=== PATIENT | female | born 1940 | race Caucasian/White ===

== ENCOUNTER 2016-11-10 00:49 | Inpatient (IN) ==
--- NOTE | 2016-11-08 13:51 | EKG Report ---
Test Performed on : 11/08/2016 1:48:07 PM Test Reason : PAT Blood Pressure : / mmHG Vent. Rate : 066 BPM Atrial Rate : 066 BPM P-R Int : 142 ms QRS Dur : 088 ms QT Int : 410 ms P-R-T Axes : -05 042 058 degrees QTc Int : 429 ms Normal sinus rhythm. Cannot rule out Anterior infarct , age undetermined Abnormal ECG No previous ECGs available Confirmed by Queenie ROE, Talon Lema ([id number]) on 11/08/2016 5:01:54 PM
[2016-11-08 14:21] LABS: HEMATOCRIT 36.8 % (37.0-47.0); HEMOGLOBIN 10.8 g/dL (12.0-16.0); MCH 22.3 PG (27-31); MCHC 29.3 g/dL (33-37); MCV 75.9 FL (81-99); MPV 9.1 FL (7.4-10.4); RBC 4.85 XMIL (4.2-5.4)
[2016-11-08 14:50] LABS: AGAP 13; BUN 14 mg/dL (8-22); CALCIUM 11.5 mg/dL (8.8-10.2); CHLORIDE 96 mmol/L (98-107); COSMO 275; POTASSIUM 5.1 mmol/L (3.5-5.1); SODIUM 138 mmol/L (136-145); TCO2 29 mmol/L (25-35)
[2016-11-08 14:52] LABS: INR 1.12; PROTIME 11.9 Seconds (9.2-11.7); PTT 33.1 Seconds (22.0-36.0)
[2016-11-10] MEDS ORDERED: KEFZOL 2 GM/D5W 2 GM/50 ML IVPB ONE (07:20)
[2016-11-10] MEDS ORDERED: LR 1,000 ML ONE ×3 (07:20→09:23)
[2016-11-10] MEDS ORDERED: DIPRIVAN 1% ONE (09:34)
[2016-11-10] MEDS ORDERED: FENTANYL ONE (09:35)
[2016-11-10] MEDS ORDERED: XYLOCAINE-MPF 2% ONE (09:35)
[2016-11-10] MEDS ORDERED: EPHEDRINE ONE (10:20)
[2016-11-10] MEDS ORDERED: STERILE WATER INJ. ONE (10:41)
[2016-11-10] MEDS ORDERED: NORCURON ONE ×2 (10:41→10:45)
[2016-11-10] MEDS ORDERED: QUELICIN (DOSE) ONE (10:41)
[2016-11-10] MEDS ORDERED: OFIRMEV 1000 MG/ISOTONIC SOLN 1,000 MG/100 ML BOTTLE ONE (11:35)
[2016-11-10] MEDS ORDERED: ZOFRAN ONE (11:43)
[2016-11-10] MEDS ORDERED: DECADRON ONE (11:43)
[2016-11-10] MEDS ORDERED: ROBINUL ONE (11:46)
[2016-11-10] MEDS ORDERED: NEOSTIGMINE ONE (11:48)
[2016-11-10 12:10] LABS: URINE MICRO REVIEW NEEDED? NO; URINE SOURCE CATH
[2016-11-10] MEDS ORDERED: NS 1,000 ML ONE (12:10)
[2016-11-10 12:15] LABS: BILIRUBIN URINE NEGATIVE (NEGATIVE); BLOOD URINE NEGATIVE (NEGATIVE); COLOR YELLOW; GLUCOSE URINE NEGATIVE (NEGATIVE); LEUKOCYTES URINE NEGATIVE (NEGATIVE); NITRITE URINE NEGATIVE (NEGATIVE); PROTEIN URINE NEGATIVE (NEGATIVE); SP GRAVITY URINE 1.007; TURBIDITY URINE CLEAR (CLEAR); UROBILINOGEN URINE NORMAL (NORMAL)
[2016-11-10 12:19] LABS: UR EPITHELIAL CELLS <10 /HPF (<10); URINE BACTERIA NEGATIVE /HPF; URINE RBC <10 /HPF (<10); URINE WBC <10 /HPF (<10)
[2016-11-10] MEDS: MORPHINE ONE ×2 (12:50→12:53)
[2016-11-10] MEDS ORDERED: SODIUM CHLORIDE 0.9% INJ PRN (13:37)
[2016-11-10] MEDS ORDERED: ZOFRAN IV PRN (13:37)
[2016-11-10] MEDS ORDERED: TYLENOL PO PRN (13:37)
[2016-11-10] MEDS ORDERED: MORPHINE IV PRN (13:37)
[2016-11-10] MEDS ORDERED: LABETALOL IV PRN (13:37)
[2016-11-10] MEDS ORDERED: PHENERGAN PO PRN (13:37)
[2016-11-10] MEDS ORDERED: DITROPAN PO PRN (13:37)
[2016-11-10] MEDS ORDERED: B & O 15A SUPP PR PRN (13:37)
[2016-11-10] MEDS ORDERED: PHENERGAN PR PRN (13:37)
[2016-11-10] MEDS ORDERED: PHENERGAN IV PRN (13:37)
[2016-11-10] MEDS ORDERED: BENADRYL LIQUID PO PRN (13:37)
[2016-11-10] MEDS ORDERED: BENADRYL IV PRN (13:37)
[2016-11-10] MEDS ORDERED: NS 1,000 ML IV SCH (14:00)
[2016-11-10] MEDS ORDERED: LASIX PO PRN (14:02)
[2016-11-10] MEDS ORDERED: NORCO-10 PO PRN (14:02)
[2016-11-10] MEDS: TRANDATE PO SCH (16:25)
[2016-11-10] MEDS: FERROUS SULFATE PO SCH (16:25)
[2016-11-10] MEDS: KEFZOL 2 GM/D5W 2 GM/50 ML IVPB IV SCH (19:04)
[2016-11-10] MEDS: DUONEB (A & A) INH SCH (19:08)
[2016-11-10] MEDS: ADVAIR 250/50 DISKUS INH SCH (19:14)
[2016-11-10] MEDS: COLACE PO SCH ×2 (19:49→22:53)
[2016-11-10] MEDS: PRAVACHOL PO SCH ×2 (19:49→22:53)
[2016-11-10] MEDS: NORCO-7.5 PO PRN (23:22)
[2016-11-11] MEDS: KEFZOL 2 GM/D5W 2 GM/50 ML IVPB IV SCH (02:41)
[2016-11-11] MEDS: NORCO-7.5 PO PRN (06:05)
[2016-11-11 06:13] LABS: MCH 22.6 PG (27-31); MCHC 29.4 g/dL (33-37); MCV 76.7 FL (81-99); RBC 4.43 XMIL (4.2-5.4)
[2016-11-11 06:29] LABS: CALCIUM 9.8 mg/dL (8.8-10.2)
[2016-11-11] MEDS: ADVAIR 250/50 DISKUS INH SCH (07:40)
[2016-11-11] MEDS: DUONEB (A & A) INH SCH (07:40)
--- NOTE | 2016-11-11 07:56 | PROGRESS NOTE ---
DATE: 11/11/2016 SUBJECTIVE: Ms. Oden reports a good night overnight. She denies severe pain. OBJECTIVE: Vital Signs: T 97.7 degrees, P 69, BP 152/54. Urine output was recorded at 2475 mL. General: No acute distress. Abdomen: Appropriately tender. Nondistended. Incisions are clean, dry, and intact in all sites. : Bladder is nontender to palpation. PERTINENT LABORATORY DATA: White cell count 11,000, hematocrit 34, creatinine is 1.1. ASSESSMENT: This is a 76-year-old female status post right robotic nephrectomy, who is doing well. She was educated on postoperative care and was cleared for discharge. PLAN: 1. Discharge home once voids and ambulates and tolerates breakfast. 2. I plan on seeing her in 1 week. 3. She will go home with prescription for Hawkins 10 (#30). cc: Last Barker MD
[2016-11-11] MEDS ORDERED: ALLEGRA PO SCH (09:00)
[2016-11-11] MEDS ORDERED: ALDACTONE PO SCH (09:00)
[2016-11-11] MEDS ORDERED: VITAMIN B-12 PO SCH (09:00)
[2016-11-11] MEDS: COLACE PO SCH (09:37)
[2016-11-11 09:39] VITALS: BP 158/48
[2016-11-11] MEDS: FERROUS SULFATE PO SCH (09:45)
[2016-11-11] MEDS: TRANDATE PO SCH (09:45)
[2016-11-13] MEDS ORDERED: DURAGESIC 12 MICROGM/HR PATCH TD SCH (09:00)
--- NOTE | 2016-11-15 17:38 | OPERATIVE NOTE ---
PROCEDURE DATE: 11/10/2016 SURGEON: Last Barker MD PREOPERATIVE DIAGNOSIS: 1. Right renal mass, flank pain, presumable metastatic disease. 2. Morbid obesity with body mass index over 40. PRIMARY PROCEDURES: Right robotic nephrectomy. INDICATIONS: 76-year-old female who presented with right hip pain and underwent imaging which eventually revealed a lytic lesion. She then had a CT of chest, abdomen and pelvis revealing a large right renal mass. She was counselled on debulking nephrectomy and had agreed to proceed. FINDINGS: Fairly large exophytic mass, adequate hemostasis at conclusion of the case. DESCRIPTION OF PROCEDURE: After obtaining informed consent, patient was brought to the operating room. Perioperative antibiotics and general endotracheal anesthesia were administered. She was placed in modified flank position with the right side up. She was prepped and draped sterile fashion. A 16-Citizen [place] Fontenot catheter was introduced and placed to gravity drainage. We then made a small stab incision in her umbilicus and introduced Veress needle connected to saline-filled syringe. We confirmed positive drop test followed by aspiration of syringe fluid without evidence of bowel contents or blood. We insufflated her pneumoperitoneum to 15 mmHg. We then marked out trocar sites suitable for nephrectomy having to shift the trocar sites laterally given her very large pannus. We then made incision with Bovie electrocautery and introduced 12 mm robotic camera trocar. The camera was introduced and peritoneal cavity was examined. She did not have significant adhesions with exception to summon of her ascending colon, she did have very large amount of intraabdominal fat again with BMI over 40. We then placed the rest of the trocars under direct vision. The robot was docked. I began by taking down the adhesions sharply allowing us to free the colon. I then made incision along the white line of Toldt and able to medialized the colon. Surprisingly Gerota fascia was incised and she had not a very large amount of perinephric fat. I was able to medialized the duodenum until inferior vena cava was seen. We dissected along the lateral edge of IVC until renal vein was seen. I dissected around the renal vein right its confluence to the IVC and placed a vessel loop around it. She had a 2nd renal vein just superior to it. We performed the same thing with the other renal vein. The artery was seen just posterior to the upper renal vein. I then dissected around the lower pole of the kidney was able to identify the ureter and placed 2 Hem-o-comfort clips and transected it. We then dissected posterior long psoas muscle until the kidney was retracted anteriorly. I then used the endovascular stapler with a 45 mm load to take hilum on block. The hemostasis appeared to be excellent. We then freed up the kidney superiorly sparing her adrenal gland. We then freed up the kidney laterally and posteriorly which allowed us to mobilize the specimen its entirety. Following that I decreased pneumoperitoneal pressure and there was very small oozing toward the area of the inferior adrenal edge. Surgicel hemostatic agent was placed and pneumoperitoneal pressure was decreased again without any evidence of bleeding. The pressure was down to 2 mmHg. We then undocked the robot, extended the infraumbilical assistant kitchen manager trocar, retrieved the specimen. We irrigated copiously the wound with normal saline. We then used #1 looped PDS to close the fascia in a running fashion. The wound was irrigated again. A 0 Vicryl suture was used in a running fashion to close the adipose tissue. We then performed 4-0 Monocryl closure of subcuticular sutures. 4-0 Monocryl suture was also used for the rest of the trocars. Dermabond skin adhesive was applied. Please note that during the surgery I did have to place a 5 mm liver retractor trocar by making small stab incision just lateral to the xiphoid process and introduced and under direct vision. This allowed us to assist with liver and gallbladder retraction. At the end of the case the retractor was removed and the liver and the gallbladder were visualized without any evidence of injury. She was then extubated and taken to PACU further recovery. ESTIMATED BLOOD LOSS: 100 mL. COMPLICATIONS: None. DISPOSITION: To PACU subsequently floor for observation with Fontenot catheter to gravity drainage. cc: MD ERICK Yang
== END 2016-11-11 09:55 | disposition home or self-care (01) ==
LOC: SURHOLD 00:49 → 4N 12:21
PROVIDERS: ADMIT Urology; ATTEND Urology

== ENCOUNTER 2019-03-05 19:13 | Inpatient (IN) ==
--- NOTE | 2019-03-05 19:50 | Diag Imaging Result Doc PS360 ---
EXAM: CHEST-1 VIEW 03/05/2019 HISTORY: ams TECHNIQUE: AP portable at 1939 COMMENT: There is cardiomegaly and increased pulmonary vascularity. This is worse than on the previous study of 09/12/2017. IMPRESSION: Cardiomegaly. Electronically signed by Liam Willson 03/05/2019 7:48 PM
--- NOTE | 2019-03-05 19:59 | EKG Report ---
Test Performed on : 03/05/2019 7:42:15 PM Test Reason : ams Blood Pressure : / mmHG Vent. Rate : 063 BPM Atrial Rate : 063 BPM P-R Int : 142 ms QRS Dur : 096 ms QT Int : 414 ms P-R-T Axes : -26 070 029 degrees QTc Int : 423 ms Normal sinus rhythm. Septal infarct , age undetermined Abnormal ECG When compared with ECG of 09-FEB-2019 15:35, (Unconfirmed) premature atrial complexes. are no longer present QRS duration has increased Unconfirmed Result
[2019-03-05] MEDS ORDERED: NS 1,000 ML IV PRN (20:18)
[2019-03-05 20:37] LABS: BASO# 0.03 X1000 (0.0-0.2); BASO% 0.4 % (0.0-0.8); EOS# 0.07 X1000 (0.0-0.7); HEMATOCRIT 44.6 % (37.0-47.0); HEMOGLOBIN 12.3 g/dL (12.0-16.0); LYMPH# 0.76 X1000 (1.2-3.4); LYMPH% 10.5 % (20.5-51.1); MCH 26.3 PG (27-31); MCHC 27.6 g/dL (33-37); MCV 95.3 FL (81-99); MONO# 0.37 X1000 (0.11-0.59); MONO% 5.1 % (1.7-9.3); MPV 10.6 FL (7.4-10.4); NEUT# 6.01 X1000 (1.4-6.5); PLT 249 X1000 (130-400); RBC 4.68 XMIL (4.2-5.4); RDW 16.3 % (11.5-14.5); WBC 7.24 X1000 (4.8-10.8)
[2019-03-05 20:39] LABS: ALLEN TEST YES; BE -4.3 mmoll (-3.0-3.0); BLOOD TYPE ARTERIAL; HCO3-(ACT) 21.5 mmoll (20.0-26.0); METHB 0.6 % (0.0-1.5); O2(CT) 17.1 mL/dL (15.0-23.0); O2HB 95.7 % (95.0-99.0); PO2(98.6) 106 mmHg (60-100); SAMPLE BLOOD; SAO2 98.8 % (95.0-100.0); THB 12.6 g/dL (11.5-17.4)
[2019-03-05 20:40] LABS: MODALITY CANNULA
[2019-03-05 20:41] LABS: PCO2(98.6) 114 mmHg (35-45); pH(98.6) 7.02 (7.35-7.45)
[2019-03-05] MEDS ORDERED: SODIUM BICARBONATE 8.4% IV ONE ×2 (20:41→21:19)
[2019-03-05] MEDS ORDERED: AMIDATE IV ONE (21:06)
[2019-03-05] MEDS ORDERED: QUELICIN IV ONE (21:06)
[2019-03-05 21:11] LABS: INR 0.99; PROTIME 13.2 Seconds (11.0-16.0); PTT 30.9 Seconds (22.3-41.8)
[2019-03-05 21:14] LABS: AGAP 7; ALB/GLOB RATIO 1.2; ALBUMIN 3.8 g/dL (3.5-5.0); ALKALINE PHOSPHATASE 91 U/L (32-104); BUN 36 mg/dL (8-22); CALCIUM 9.3 mg/dL (8.8-10.2); CHLORIDE 105 mmol/L (98-107); COSMO 287; CREATININE 1.3 mg/dL (0.5-0.9); ESTIMATED GFR 40; GLUCOSE 118 mg/dL (70-104); GOT 14 U/L (10-30); GPT 9 U/L (10-36); POTASSIUM 7.5 mmol/L (3.5-5.1); SODIUM 139 mmol/L (136-145); TCO2 27 mmol/L (25-35); TOTAL BILIRUBIN < 0.15 mg/dL (0.20-1.00)
[2019-03-05] MEDS ORDERED: HUMULIN R IV ONE (21:19)
[2019-03-05] MEDS ORDERED: DUONEB (A & A) INH ONE (21:19)
[2019-03-05] MEDS ORDERED: ZEMURON IV ONE (21:19)
[2019-03-05] MEDS ORDERED: KAYEXALATE PR ONE (21:19)
[2019-03-05] MEDS ORDERED: D50W SYRINGE IV ONE (21:19)
--- NOTE | 2019-03-05 21:22 | Diag Imaging Result Doc PS360 ---
EXAM: CT HEAD W/O CONTRAST 03/05/2019 HISTORY: altered mental status, stroke TECHNIQUE: This exam was performed using automated exposure control, adjustment of mA or kV according to patient size, and/or use of iterative reconstruction technique. COMMENT: There is no evidence of mass effect, bleed, or abnormal extra-axial fluid collection. Compared to 09/12/2017 there has been no significant change. There is opacification of the sphenoid sinuses bilaterally. This was also the case previously. IMPRESSION: Bilateral chronic sphenoid sinusitis. No evidence of acute intracranial disease. If clinically indicated advise further evaluation with MRI. Electronically signed by Liam Willson 03/05/2019 9:19 PM
[2019-03-05] MEDS: DIPRIVAN 1% 1,000 MG/100 ML BOTTLE IV SCH (21:46)
[2019-03-05] MEDS ORDERED: KAYEXALATE NG ONE (21:58)
--- NOTE | 2019-03-05 22:00 | Diag Imaging Result Doc PS360 ---
EXAM: CHEST-1 VIEW 03/05/2019 HISTORY: et tube placement TECHNIQUE: Erect AP portable at 2142 COMMENT: There is an endotracheal tube with its tip slightly below the thoracic inlet. There is an NG tube with its tip just below the gastroesophageal junction. There is apparent atelectasis in the left base which was not present on 03/05/2019 at 1939. IMPRESSION: Left lower lobe atelectasis. NG tube in the cardia of the stomach. Electronically signed by Liam Willson 03/05/2019 9:58 PM
[2019-03-05] MEDS ORDERED: KAYEXALATE ONE (22:05)
[2019-03-05] MEDS ORDERED: LEVAQUIN 500 MG/D5W 500 MG/100 ML IVPB IV ONE (22:38)
[2019-03-05] MEDS ORDERED: CALCIUM GLUCONATE 1 GM in NS 50 ML IV ONE (22:39)
--- NOTE | 2019-03-05 22:44 | PROVIDER DOCUMENTATION ---
This chart was entered by Chio Hargrove Scribe, acting as scribe for Monty Morales MD. HPI-General Adult - General Source: patient, family - History of Present Illness -Gen Adult Nature of Presenting Problems: pt is a 78 yr old female presenting from home via EMS with 1 day complaint of decreased responsiveness, family reports since waking this AM pt has becoming increasingly difficult to arouse, has had intermittent slurred speech and confusion, this evening family was unable to wake pt for supper. family admits pt is on 2lpm continuous home o2 and has had Spo2 sats in the 70%s today with o2 in place. family denies any recent fever, no vomiting , diarrhea or coughing. family reports hx of renal CA with mets. pt is slow to respond but denies any complaints when woken. Location of Pain/Injury: reports: none Quality of Pain: reports: none Onset/Duration: reports: this morning Timing: reports: changing over time, getting worse Context/Activities at Onset: reports: rest Modifying Factors: improves with: nothing Associated Symptoms: denies: cough, diarrhea, fever/chills, sinus congestion/drainage, vomiting Similar Symptoms Previously?: No Recently seen or treated by another doctor?: No <Monty Morales - Last Filed: 03/05/19 22:41> <Kelly Roberts - Last Filed: 03/06/19 08:08> - General Stated Complaint: "unresponsive" hx kidney CA Time Seen by Provider: 03/05/19 19:32 Allergies/Adverse Reactions: Patient Allergies Allergy/AdvReac Type Severity Reaction Status Date / Time No Known Allergies Allergy Verified 03/05/19 23:32 Home Medications: Home Medication List Medication Instructions Recorded Confirmed Last Taken Type Labetalol [Trandate] 100 mg PO TID 11/08/16 03/05/19 02/07/17 21:00 History Sertraline [Zoloft] 25 mg PO DAILY 08/01/17 03/05/19 Unknown History Review of Systems - Adult - REVIEW OF SYSTEMS - ADULT ROS:: limited per condition Constitutional: reports: pelon. denies: chills, fever Eyes: reports: no symptoms reported Ears, Nose, Mouth & Throat: reports: no symptoms reported Cardiovascular: reports: no symptoms reported Respiratory: denies: cough, wheezing Gastrointestinal: denies: diarrhea, vomiting Genitourinary: reports: no symptoms reported Musculoskeletal: denies: muscle aches, muscle weakness Integumentary: reports: no symptoms reported Neurological: reports: slurred speech, other (confusion, decreased re sponsivness). denies: syncope Psychiatric: reports: no symptoms reported Endocrine: reports: no symptoms reported Hematologic/Lymphatic: reports: no symptoms reported Allergic/Immunologic: reports: no symptoms reported All Other Systems: Reviewed and Negative <Monty Morales - Last Filed: 03/05/19 22:41> Past History - Adult - PAST MEDICAL HISTORY-ADULT Review of Records: reports: Old Records Reviewed, Nursing Assessment Review, Medications Reviewed, Social history reviewed & non-contributory. Major Childhood Illnesses: reports: denies history Cardiovascular: reports: blood clots, HTN, hyperlipidemia Respiratory: reports: COPD Gastrointestinal: reports: denies history Obstetrical/Gynecological: reports: denies history Genitourinary: reports: cancer (kidney with mets to the bone), kidney disease, other (renal mass) Musculoskeletal: reports: denies history Neurological: reports: denies history Psychiatric: reports: denies history Endocrine/Immune: reports: denies history Other Conditions: reports: cataract/glaucoma - PRIOR SURGERIES/PROCEDURES Surgical/Procedure History: reports: reviewed, not pertinent, other (cataract removal, nephrectomy) - IMMUNIZATION STATUS Childhood Immunizations: See Nurse Assessment Flu Vaccine: See Nurse Assessment - FAMILY HISTORY Family History: reviewed, not pertinent - SOCIAL HISTORY Smoking: quit greater than 1 year Substance Use: alcohol Alcohol Use Frequency: occasionally Living Situation: family <Monty Morales - Last Filed: 03/05/19 22:41> Physical Exam-General - CONSTITUTIONAL General Appearance: no apparent distress, obese, lethargic, slow to respond - EYES Eyes: PERRL/EOMI - HEAD, EARS, NOSE, MOUTH & THROAT HENMT: normocephalic/atraumatic, moist mucous membranes - NECK Neck: non-tender, supple - RESPIRATORY Respiratory: lungs clear, normal breath sounds - CARDIOVASCULAR Cardiovascular: normal peripheral pulses, regular rate, rhythm - GASTROINTESTINAL (ABDOMEN) Abdominal Exam: normal bowel sounds, non tender, soft - LYMPHATIC Lymphatic: no adenopathy - MUSCULOSKELETAL Extremity: non-tender. negative: pedal edema - SKIN Integumentary: normal color, normal turgor, warm/dry - NEUROLOGIC Neurologic: negative: motor weakness, sensory deficit - PSYCHIATRIC Psych/Mental Status: oriented x 3 <Monty Morales - Last Filed: 03/05/19 22:41> Progress - PLAN OF CARE/RESULTS Progress/Plan/Lab Results: Orders Category Date Time Status Nursing- Obtain EKG ONCE Care 03/05/19 19:32 Active cxr [CHEST-1 VIEW] [RAD] Stat Exams 03/05/19 19:32 Completed CBC WITH ELECTRONIC DIFF [HEME] Stat Lab 03/05/19 20:06 Ordered COMPREHENSIVE METABOLIC PANEL [CHEM] Stat Lab 03/05/19 20:06 Ordered TROPONIN T HIGH SENSITIVITY Stat Lab 03/05/19 20:06 Ordered URINALYSIS W/POSS RFLX CULT [URINALYSIS] Stat Lab 03/05/19 19:32 Uncollected EKG [EKG] Stat Ther 03/05/19 19:32 Draft Result Diagrams: 03/05/19 19:57 03/05/19 19:57 - XRAY 1 XRAY Study: Chest Impression: Abnormal ( Signed EXAM: CHEST-1 VIEW 03/05/2019 HISTORY: ams TECHNIQUE: AP portable at 1939 COMMENT: There is cardiomegaly and increased pulmonary vascularity. This is worse than on the previous study of 09/12/2017. IMPRESSION: Cardiomegaly. Electronically signed by Liam Willson 03/05/2019 7:48 PM 03/05/191947 Interpreting Physician: Liam Willson MD Dictated Date/Time: 03/05/191946 cc: Monty Morales MD;) Comparison with other Films: changes noted (09/12/17) - CT/MRI 1 CT Study: Head Impression: Abnormal ( Signed EXAM: CT HEAD W/O CONTRAST 03/05/2019 HISTORY: altered mental status, stroke TECHNIQUE: This exam was performed using automated exposure control, adjustment of mA or kV according to patient size, and/or use of iterative reconstruction technique. COMMENT: There is no evidence of mass effect, bleed, or abnormal extra-axial fluid collection. Compared to 09/12/2017 there has been no significant change. There is opacification of the sphenoid sinuses bilaterally. This was also the case previously. IMPRESSION: Bilateral chronic sphenoid sinusitis. No evidence of acute intracranial disease. If clinically indicated advise further evaluation with MRI. Electronically signed by Liam Willson 03/05/2019 9:19 PM 03/05/[id number] Interpreting Physician: Liam Willson MD Dictated Date/T lyndsey: 03/05/192117 cc: Monty Morales MD;) Comparison with other Films: no changes (09/12/17) - CONSULTS/PCP/HOSPITALIST Notification #1 *Consult/PCP/Hospitalist*: Dr Guzman Time Discussed: 22:44 Consult Disposition: Will see in ED, Admit <Monty Morales - Last Filed: 03/05/19 22:41> - PLAN OF CARE/RESULTS Progress/Plan/Lab Results: Vital Signs - 8 hr 03/05/19 19:30 Temperature 97.9 F Pulse Rate 59 L Respiratory Rate 17 Blood Pressure 172/68 O2 Sat by Pulse Oximetry 98 Laboratory Results - last 24 hr 03/05/19 03/05/19 03/05/19 19:57 19:57 19:57 WBC 7.24 RBC 4.68 Hgb 12.3 Hct 44.6 MCV 95.3 MCH 26.3 L MCHC 27.6 L RDW Std Deviation 16.3 H Plt Count 249 MPV 10.6 H Neut % (Auto) 83.0 H Lymph % (Auto) 10.5 L [place] % (Auto) 5.1 Eos % (Auto) 1.0 Baso % (Auto) 0.4 Neut # (Auto) 6.01 Lymph # (Auto) 0.76 L [place] # (Auto) 0.37 Eos # (Auto) 0.07 Baso # (Auto) 0.03 PT INR PTT (Actin FS) Specimen Type Sample Site pH pCO2 pO2 HCO3 Base Excess Oxyhemoglobin ABG O2 Sat (Calculated) ABG O2 Saturation ABG Carboxyhemoglobin ABG Methemoglobin Talon Test A-a O2 Difference Total Hemoglobin Lactate Liter Flow Blood Gas Modality FiO2 % Sodium 139 Potassium 7.5 H* Chloride 105 Carbon Dioxide 27 Anion Gap 7 BUN 36 H Creatinine 1.3 H Estimated GFR/1.73 m2 40 BUN/Creatinine Ratio 28 Glucose 118 H Calculated Osmolality 287 Calcium 9.3 Total Bilirubin < 0.15 L AST 14 ALT 9 L Alkaline Phosphatase 91 Ammonia Troponin T High Sens 48 H Total Protein 7.0 Albumin 3.8 Globulin 3.2 Albumin/Globulin Ratio 1.2 03/05/19 03/05/19 03/05/19 19:57 20:20 20:40 WBC RBC Hgb Hct MCV MCH MCHC RDW Std Deviation Plt Count MPV Neut % (Auto) Lymph % (Auto) [place] % (Auto) Eos % (Auto) Baso % (Auto) Neut # (Auto) Lymph # (Auto) [place] # (Auto) Eos # (Auto) Baso # (Auto) PT 13.2 INR 0.99 PTT (Actin FS) 30.9 Specimen Type ARTERIAL Sample Site R BRACHIAL pH 7.02 L* pCO2 114 H* pO2 106 H HCO3 21.5 Base Excess -4.3 L Oxyhemoglobin 95.7 ABG O2 Sat (Calculated) 17.1 ABG O2 Saturation 98.8 ABG Carboxyhemoglobin 2.60 H ABG Methemoglobin 0.6 Talon Test YES A-a O2 Difference -20.0 Total Hemoglobin 12.6 Lactate 0.30 L Liter Flow 3.0 Blood Gas Modality CANNULA FiO2 % 32.0 Sodium Potassium Chloride Carbon Dioxide Anion Gap BUN Creatinine Estimated GFR/1.73 m2 BUN/Creatinine Ratio Glucose Calculated Osmolality Calcium Total Bilirubin AST ALT Alkaline Phosphatase Ammonia 38 Troponin T High Sens Total Protein Albumin Globulin Albumin/Globulin Ratio Orders Category Date Time Status Cardiac Monitoring DIRECTED Care 03/05/19 20:18 Active Finger Stick Blood Sugar (ED) DIRECTED Care 03/05/19 20:18 Active Fontenot Cath Insertion ORDERED Care 03/05/19 20:32 Active Nursing- Obtain EKG ONCE Care 03/05/19 19:32 Active Oxygen Therapy- ED Nursing DIRECTED Care 03/05/19 20:18 Active Saline Loc NOW Care 03/05/19 20:[address] HEAD W/O CONTRAST [CT] Stat Exams 03/05/19 20:14 Completed cxr [CHEST-1 VIEW] [RAD] Stat Exams 03/05/19 19:32 Completed ABG [RESP] Routine Lab 03/05/19 20:20 Completed AMMONIA [CHEM] Stat Lab 03/05/19 20:40 Completed CBC WITH ELECTRONIC DIFF [HEME] Stat Lab 03/05/19 19:57 Completed COMPREHENSIVE METABOLIC PANEL [CHEM] Stat Lab 03/05/19 19:57 Completed PROTIME WITH INR [COAG] Stat Lab 03/05/19 19:57 Completed PTT [COAG] Stat Lab 03/05/19 19:57 Completed TROPONIN T HIGH SENSITIVITY Stat Lab 03/05/19 19:57 Completed URINALYSIS W/POSS RFLX CULT [URINALYSIS] Stat Lab 03/05/19 20:51 Ordered URINE DRUG SCREEN Stat Lab 03/05/19 20:51 Ordered 0.9% Sodium Chloride Inj [Ns] 1,000 ml Med 03/05/19 20:18 Active IV 125 mls/hr Albuterol 2.5MG/Ipratrop 0.5MG [Duoneb (A & A)] Med 03/05/19 21:19 Discontinued 3 ml INH NOW ONE Dextrose 50% Syringe [D50w Syringe] Med 03/05/19 21:19 Discontinued 50 ml IV NOW ONE Etomidate [Amidate] Med 03/05/19 21:06 Discontinued 20 mg IV NOW ONE Insulin Human Regular [Humulin R] Med 03/05/19 21:19 Discontinued 10 unit IV NOW ONE Rocuronium [place] [Zemuron] Med 03/05/19 21:19 Discontinued 100 mg IV NOW ONE Sodium Bicarbonate 8.4% Med 03/05/19 20:41 Discontinued 50 meq IV NOW ONE Sodium Bicarbonate 8.4% Med 03/05/19 21:19 Discontinued 50 meq IV NOW ONE Sodium Polystyrene [Kayexalate] Med 03/05/19 21:19 Discontinued 30 gm WV NOW ONE Succinylcholine [Quelicin] Med 03/05/19 21:06 Discontinued 100 mg IV NOW ONE Aerosol Treatments Routine Oth 03/05/19 21:19 Active Aerosol Treatments Stat Oth 03/05/19 21:19 Active BIPAP Stat Oth 03/05/19 20:42 Active EKG [EKG] Stat Ther 03/05/19 19:32 Draft Result Diagrams: 03/06/19 04:55 03/06/19 04:55 <Kelly Roberts - Last Filed: 03/06/19 08:08> Procedures - INTUBATION Time of Intubation: 21:25 Mallampati Class: 2 Intubation Method: orotracheal Equipment: ETT, Glidescope Tube Size (cm): 7.5 Pretreated with 100% Oxygen?: Yes Breath Sounds after Intubation: equal ETT Primary Tube Confirmation: Capnometry CO2 Change, Direct Visualization, Chest Rise and Fall, Tube placement verified on XRAY Intubation Complications: no complications Vent Settings: See Respiratory Therapy Notes <Kelly Roberts - Last Filed: 03/06/19 08:08> Departure - Departure Date of Disposition Decision: 03/05/19 Time of Disposition Decision: 22:41 Certified Medical Emergency: Emergent - Critical Care Note This patient required my direct & personal management of CC.: Yes Total Time (mins): 60 Critical Care Statement: This patient required my direct personal management to treat or rule out processes, the absence of which, could potentiallly result in sudden, clinically significant life or limb threatening deterioration. <Monty Morales - Last Filed: 03/05/19 22:41> <Kelly Roberts - Last Filed: 03/06/19 08:08> - Departure DIAGNOSIS: AMS (altered mental status), Hyperkalemia, Hypoxia, COPD exacerbation, Renal insufficiency, Respiratory distress Disposition: ADMITTED INPATIENT 09 Condition: Fair Attestation - Physician/ JOSE Attestation Patient care was provided by Advanced Practice Provider:: No The physician spent face to face time with patient:: Yes Advanced Practice Provider documentation review:: Supervising physician onsite and consulted in the evaluation and care of this patient. The physician did have a face to face encounter with the patient. <Monty Morales - Last Filed: 03/05/19 22:41> This chart was documented by the indicated scribe, (Chio Hargrove Scribe) and accurately reflects the services I performed and decisions made by me, Monty Morales MD, as attested by the provider's signature.
[2019-03-05 22:54] LABS: ALLEN TEST YES; BE 1.4 mmoll (-3.0-3.0); BLOOD TYPE ARTERIAL; O2(CT) 17.3 mL/dL (15.0-23.0); PO2(98.6) 146 mmHg (60-100); SAMPLE BLOOD; SAO2 98.6 % (95.0-100.0); SRATE 20 BPM; THB 12.6 g/dL (11.5-17.4); TVOL 500 mL; pH(98.6) 7.27 (7.35-7.45)
[2019-03-05 22:56] LABS: MODALITY VENTILATOR; PCO2(98.6) 65 mmHg (35-45)
[2019-03-05 22:58] LABS: URINE SOURCE CATH
[2019-03-05 23:05] LABS: BILIRUBIN URINE NEGATIVE (NEGATIVE); BLOOD URINE MODERATE (NEGATIVE); COLOR YELLOW; GLUCOSE URINE 70 mg/dL (NEGATIVE); KETONE URINE NEGATIVE (NEGATIVE); LEUKOCYTES URINE NEGATIVE (NEGATIVE); NITRITE URINE NEGATIVE (NEGATIVE); PH URINE 5.5; PROTEIN URINE 100 mg/dL (NEGATIVE); SP GRAVITY URINE 1.026; TURBIDITY URINE HAZY (CLEAR); UROBILINOGEN URINE 2 mg/dL (NORMAL)
[2019-03-05 23:06] LABS: UR EPITHELIAL CELLS <10 /HPF (<10); URINE BACTERIA NEGATIVE /HPF; URINE WBC <10 /HPF (<10)
[2019-03-05 23:20] LABS: URINE CASTS GRANULAR PRESENT; URINE CRYSTALS NONE SEEN; URINE SMALL ROUND CELLS NONE SEEN; URINE YEAST NONE SEEN
[2019-03-05 23:30] LABS: UR BARBITUATES QUAL NONE DETECTED (NONE DETECT); UR BENZODIAZEPIN QUAL NONE DETECTED (NONE DETECT); UR CANNABINOIDS QUAL NONE DETECTED (NONE DETECT); UR COCAINE QUAL NONE DETECTED (NONE DETECT); UR METHADONE QUAL NONE DETECTED (NONE DETECT); UR OPIATES QUAL NONE DETECTED (NONE DETECT); UR OXYCODONE QUAL NONE DETECTED (NONE DETECT); UR PCP QUAL NONE DETECTED (NONE DETECT)
[2019-03-05 23:45] LABS: UR AMPHETAMINES QUAL NONE DETECTED (NONE DETECT)
[2019-03-05] MEDS ORDERED: ATIVAN IV PRN (23:46)
[2019-03-05] MEDS ORDERED: TYLENOL PO PRN (23:46)
[2019-03-05] MEDS ORDERED: MORPHINE IV PRN (23:46)
[2019-03-05] MEDS ORDERED: ZOFRAN IV PRN (23:46)
[2019-03-05] MEDS ORDERED: DUONEB (A & A) INH PRN (23:46)
[2019-03-05] MEDS: DUONEB (A & A) INH SCH (23:50)
[2019-03-06] MEDS: NS 1,000 ML IV SCH ×7 (00:26→23:10)
[2019-03-06] MEDS: PEPCID IV SCH ×3 (00:26→23:10)
[2019-03-06] MEDS ORDERED: ALBUTEROL 0.5% INH CONC FOR HYPERKALEMIA INH ONE (01:09)
[2019-03-06] MEDS ORDERED: LASIX IV ONE (01:11)
[2019-03-06] MEDS ORDERED: KAYEXALATE PO ONE (01:12)
[2019-03-06] MEDS: DIPRIVAN 1% 1,000 MG/100 ML BOTTLE IV SCH ×8 (01:38→23:48)
[2019-03-06] MEDS: DUONEB (A & A) INH SCH ×6 (03:49→23:42)
[2019-03-06 04:45] LABS: ALLEN TEST YES; BE 1.6 mmoll (-3.0-3.0); BLOOD TYPE ARTERIAL; HCO3-(ACT) 26.1 mmoll (20.0-26.0); METHB 1.1 % (0.0-1.5); O2(CT) 19.9 mL/dL (15.0-23.0); O2HB 95.7 % (95.0-99.0); PCO2(98.6) 48 mmHg (35-45); PO2(98.6) 125 mmHg (60-100); SAMPLE BLOOD; SAO2 97.9 % (95.0-100.0); SRATE 14 BPM; THB 14.7 g/dL (11.5-17.4); TVOL 500 mL; pH(98.6) 7.37 (7.35-7.45)
[2019-03-06 04:46] LABS: MODALITY VENTILATOR
--- NOTE | 2019-03-06 05:34 | HISTORY AND PHYSICAL ---
PRIMARY CARE PROVIDER: Dr. Chidi Roman. ONCOLOGIST: Dr. Evelia Arora. CHIEF COMPLAINT: Per family at bedside altered mental status, unresponsiveness. HISTORY OF PRESENT ILLNESS: Ms. 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 She had been undergoing chemotherapy with oral medication with Dr. Evelia Arora; however, she has been off her chemotherapy for 6 months secondary to severe weight loss and being sick. She has just been on a shot for her bones once a month, COPD on p.r.n. home O2. Secondary to her hip pain she is essentially bedbound, history of bilateral PEs, hypertension. Family reports over the last few months she has been having issues with hyperkalemia. Her primary care physician has taken her off all her medications except for labetalol and Zoloft, and had an appointment set up with Dr. Ríos this week. However, even with taking her off her medications that could cause hyperkalemia she was still having issues. She is currently living with her sister, her sister reports this morning they had the Tuesday morning blahs, so they slept in. They got up and ate lunch and then she continued to sleep until about 2 p.m. She noticed she was more lethargic than normal, and she was extremely hard to arouse. She would only speak his in one-word sentences, and that her speech was somewhat slurred. She called her daughter over to assist her, they called EMS after they could not wake her for supper. O2 saturations at that time were 70% even on her home O2. Initially upon arrival to the ED she was slow to respond, but when she was awakened she did not have any complaints. However, after they checked her ABGs she was found to be hypercarbic with a metabolic acidosis, and was intubated and found to be hypokalemic for which she received treatment for. She is currently intubated and sedated on propofol. Family denies any recent sick contacts, any fever, chills, nausea, vomiting or diarrhea. She will be placed in the ICU to continue with further treatment and management. PAST MEDICAL HISTORY: 1. Renal cell carcinoma status post right nephrectomy with metastases to the right hip, followed by Dr. Evelia Arora. She was taken off her chemotherapy oral medications 6 months ago. 2. COPD on p.r.n. O2. 3. History of bilateral pulmonary embolus. 4. Hypertension. PAST SURGICAL HISTORY: Right nephrectomy, and a knee arthroscopy. SOCIAL HISTORY: She lives with her sister. She quit smoking more than 20 years ago. She is not , no children. She is retired from the government. Her niece and sister are both at bedside. HOME MEDICATIONS: Per sister labetalol and Zoloft, p.r.n. home O2 and breathing treatments. Her medications are currently being reconciled. REVIEW OF SYSTEMS: Hard to obtain secondary to the patient being sedated on propofol and intubated. FAMILY HISTORY: Reviewed and noncontributory. ALLERGIES: No known drug allergies. PHYSICAL EXAMINATION: VITAL SIGNS: Temperature is 97.9 degrees, heart rate 59, respirations 17, blood pressure was 172/68, O2 saturation is 98% on room air, currently 100% on mechanical ventilation. GENERAL: Ms. Oden is a 78-year-old female who is lying on the stretcher, intubated and sedated, in no acute distress. HEENT: Atraumatic, normocephalic. PERRL. NECK: Supple. Trachea midline. CARDIOVASCULAR: S1, S2 appreciated. No murmurs, gallops or rubs noted. RESPIRATORY: Lung sounds scattered rhonchi throughout all lung bowles. No rales, rhonchi or wheezes. GI: Appears to be soft, nontender and nondistended. Positive bowel sounds in 4 quadrants. LOWER EXTREMITIES: Generalized edema. Bilateral pedal pulses are bounding. SKIN: Appears to be warm, dry and intact. DIAGNOSTIC DATA: Head CT, bilateral chronic ethmoid sinusitis, no evidence of acute intracranial disease is clinically indicated. Advised further evaluation with MRI. Initial chest x-ray, cardiomegaly and increased pulmonary vascularity, worse than on previous study on 09/12/2017. Repeat chest x-ray showed an ET tube with its tip slightly below the thoracic inlet, and an NG tube with the tip just below the gastric esophageal juncture, and atelectasis in the left base that was not present on 03/05/2019. LABORATORY DATA: White count 7, hemoglobin and hematocrit 12 and 44, platelet count is 249,000. Initial ABG, pH was 7.02, pCO2 of 114, O2 of 106, bicarbonate 21, base excess - 4.3, O2 saturation was 98. Lactate was 0.30. On nasal cannula repeat ABG was 7.27, pCO2 of 65, O2 of 146, base excess of 1.4, O2 saturation of 98 on mechanical ventilation. Chemistry: Sodium 139, potassium 7.5, BUN 36, creatinine 1.3 blood glucose is 118. Initial troponin 48, and 2nd troponin was 45. EKG showed a normal sinus rhythm with a septal infarct age indeterminate at 63 beats per minute. ASSESSMENT AND PLAN: 1. Acute hypercarbic respiratory failure with a metabolic acidosis. The patient was intubated by the ED physician. There is no mechanical ventilation. Has been given bicarbonate with improvement in her ABGs. We will consult Pulmonology and continue on propofol drip overnight with Ativan for breakthrough agitation and morphine for any pain. Recheck an ABG and chest x- ray in the a.m. 2. Metabolic encephalopathy secondary to hypercarbia. There is no signs of infection. She does not have a white count. She is afebrile. Chest x-ray does not show any pneumonia. Urinalysis does not show any UTI. A head CT does not show anything acute; however, it does recommend further evaluation with an MRI. We will do so in the a.m. if the patient is appropriate to travel. 3. Hyperkalemia. The patient has had hyperkalemia treatment in the ER with Kayexalate, insulin, D 50, calcium, and bicarbonate, currently awaiting her potassium recheck. We will monitor her closely in the ICU. Repeat EKG in the a.m. The patient has been having issues with hyperkalemia, she was taken off her JESSICA and most of her medications by her PCP, but continued to have issues with her potassium. She had an appointment with Dr. Ríos this week, we will consult Dr. Bledsoe and appreciate any recommendations. She is currently on labetalol and Zoloft only. 4. COPD, probable mild exacerbation. She is not currently wheezing, but we will continue with bronchodilators and aggressive pulmonary toilet. 5. Hypertension. We will continue labetalol when appropriate, her heart rate has been in the 50s. 6. Renal cell carcinoma status post right nephrectomy with metastases to the right hip. She is followed by Dr. Evelia Arora; however, she was taken off her chemotherapy 6 months ago secondary to severe weight loss, and only gets follow up scans. 7. Acute kidney injury. We will continue with aggressive IV hydration. Again we have consulted Dr. Bledsoe. 8. Further recommendation to follow physician evaluation, laboratory and diagnostic data. Dictated by MARCELINA Fuchs for Zane Guzman MD I have performed a face to face diagnostic evaluation. Labs/ Xrays- reviewed. Exam- Chest rhonchi, CV- regular. A/P- Respiratory failure, hyperkalemia- Admit , Pulmonary consult for vent management. IV abx, monitor potassium, Kayexalate. Dr. Guzman cc: MD Chidi Yang MD Reginald D. Gladish, MD Lloyd James, MD Nidhi Jindal, MD [facility]ENTERJuan
[2019-03-06 06:17] LABS: BASO# 0.01 X1000 (0.0-0.2); BASO% 0.1 % (0.0-0.8); EOS# 0.03 X1000 (0.0-0.7); EOS% 0.4 % (0.0-10.0); HEMATOCRIT 39.4 % (37.0-47.0); HEMOGLOBIN 11.1 g/dL (12.0-16.0); IMM GRAN# 0.02 X1000 (0.0-0.04); IMM GRAN% 0.3 % (0.0-0.5); LYMPH# 0.68 X1000 (1.2-3.4); MCH 26.1 PG (27-31); MCHC 28.2 g/dL (33-37); MCV 92.7 FL (81-99); MONO# 0.67 X1000 (0.11-0.59); MONO% 8.9 % (1.7-9.3); MPV 11.3 FL (7.4-10.4); NEUT# 6.16 X1000 (1.4-6.5); NEUT% 81.3 % (42.2-75.2); PLT 231 X1000 (130-400); RBC 4.25 XMIL (4.2-5.4); RDW 15.8 % (11.5-14.5); WBC 7.57 X1000 (4.8-10.8)
[2019-03-06 06:31] LABS: ALB/GLOB RATIO 0.9; CALCIUM 9.2 mg/dL (8.8-10.2); CREATININE 1.3 mg/dL (0.5-0.9); POTASSIUM 4.9 mmol/L (3.5-5.1); TOTAL BILIRUBIN 0.28 mg/dL (0.20-1.00); TOTAL PROTEIN 6.4 g/dL (6.3-8.3)
--- NOTE | 2019-03-06 07:33 | Diag Imaging Result Doc PS360 ---
CHEST-PORTABLE - 03/06/2019 INDICATION: short of breath COMPARISON: 03/05/2019 FINDINGS: Support tubes are stable and in good position. There is worsening atelectasis or infiltrate at the left lower lobe with loss of the left hemidiaphragm. Stable cardiomegaly and moderate pulmonary vascular congestion. No definite pulmonary edema. IMPRESSION: Atelectasis or infiltrate at the left lower lobe, worse from prior. Electronically signed by Basilio Frias 03/06/2019 7:30 AM
--- NOTE | 2019-03-06 07:42 | EKG Report ---
Test Performed on : 03/06/2019 06:41:33 AM Test Reason : hyperkalemia Blood Pressure : / mmHG Vent. Rate : 071 BPM Atrial Rate : 071 BPM P-R Int : 128 ms QRS Dur : 078 ms QT Int : 436 ms P-R-T Axes : -11 019 030 degrees QTc Int : 473 ms Normal sinus rhythm. Minimal voltage criteria for LVH, may be normal variant Borderline ECG When compared with ECG of 05-MAR-2019 19:42, (Unconfirmed) Criteria for Septal infarct are no longer present Confirmed by Aman ROE, Robi Stubbs ([id number]) on 03/08/2019 7:28:23 AM
--- NOTE | 2019-03-06 10:44 | PROVIDER PROGRESS NOTE ---
Progress Note Patient has been seen and examined. A full dictation to follow.
[2019-03-06] MEDS: SODIUM CHLORIDE 0.9% INJ SCH (11:25)
--- NOTE | 2019-03-06 13:30 | PROVIDER PROGRESS NOTE ---
Progress Note Chief complaint: intubated and sedated HPI: Ms. Oden is an 78-year-old white female with a past medical history of renal cell carcinoma with the right nephrectomy and metastasis to the right hip. She was referred to Dr. Ríos for hyperkalemia and was due for her initial visit on 03/08/2019. She has been undergoing chemotherapy with oral medication with Dr. Evelia Arora. She has not been receiving treatment for the last six months secondary to severe weight loss and malaise. According to documentation she has had a problem with hyperkalemia over the last few months which resulted in her primary care provider, Dr. Chidi Pfeiffer, discontinuing some of her daily medications. Yesterday her sister noticed that she was more lethargic than normal and had slurred speech. EMS was called and found her O2 saturation to be at 70% even with home oxygen in place. Subsequently she was intubated in the emergency department based on presentation and abnormal ABGs. Family denies any chest pain, fever, chills, nausea, vomiting, diarrhea, cough, shortness of breath, blood in urine or stool, or contact with any infectious Family. She was treated with Kayexalate, insulin, D50, and calcium in the emergency for her hyperkalemia. Past medical history: renal cell carcinoma with Mets to the right hip, COPD requiring home oxygen, bilateral pulmonary embolism, and hypertension. Past surgical history: right nephrectomy and a knee arthroscopy. Family history: noncontributory Social history: she lives with her sister. She denies any current tobacco, alcohol, or illicit drug use. She is a former smoker. Allergies: no known allergies Home medications: labetalol and sertraline Review of systems: Limited due to patient being sedated. All pertinent positives listed above in the above HPI according to previous documentation. Physical exam: temperature 98.7, pulse 66, respirations 16, blood pressure 97/45, 02 sat 95% on 35% FiO2. Mechanical ventilation General: Elderly white female in no acute distress who is intubated and sedated. HEENT: normocephalic, atraumatic, conjunctiva pink, pupils equal and reactive. Trachea midline. Skin: Pale, warm, and dry. Neck: supple, 6cm JVD Cardiovascular: S1s2, regular rate and rhythm. No gallop or murmur. Respiratory: coarse lung sounds anteriorly. Abdomen: soft, obese, nontender, nondistended. Bowel sounds hypoactive. :non inspected, acevedo in place Extremities: minimal edema. Neurological:sedated, unable to assess orientation due to ET tube. Labs: WBC 7.57, hemoglobin 11.1, hematocrit 39.4, platelet count to 131, sodium 142, potassium 5.3, chloride 104, carbon dioxide 23, BUN 36, creatinine 1.3. Intake 1407, output 730. Imaging: chest x-ray impression atelectasis or infiltrate at the left lower lobe. Head CT without contrast impression bilateral chronic sphenoid sinusitis. No evidence of acute intracranial disease. Assessment and plan: Hyperkalemia. Source is not obvious. Improving. 5.3 today. She continues to have bowel movements with Kayexalate. Observe Worsening renal insufficiency. Her Creatinine was 0.9 in February and is now 1.3. Observe. Blood pressure. Stable. Anemia. Stable. Acid base balance. Stable. Medication review.
--- NOTE | 2019-03-06 13:31 | PROGRESS NOTE ---
DATE: 03/06/2019 SUBJECTIVE: This morning, Ms. dOen continues to be intubated and sedated on propofol. The sister and the niece were both at the bedside at the time of the encounter. OBJECTIVE: Vital Signs: Blood pressure is 132/55, pulse of 61, respirations 14, temperature is 98.6 degrees, the patient is saturating 96% on ventilator. General: Ms. Oden is a 78-year-old, elderly, female. She is in bed. No distress. She is currently intubated and sedated. HEENT: Mucosa is pink and moist. Anicteric. Acyanotic. Neck: Supple. Chest: Good air entry bilateral. There are no crepitations. Cardiovascular: Regular rate and rhythm. GI: Abdomen is soft, distended. Bowel sounds present. Extremities: No pedal edema. COOK SOUP: The patient is sedated on propofol, but will withdraw from painful stimulation. IMAGING AND LABORATORY DATA: Laboratory data has been reviewed. CBC is, for the most part, unremarkable. Chemistry shows creatinine of 1.3, potassium is down to 4.9. ProBNP is elevated at 8900. A chest x-ray did show atelectasis or infiltrate in the left lower lobe, worse from prior. ASSESSMENT: 1. Altered mental status, most likely due to CO2 narcosis. 2. Acute hypoxemic and hypercarbic respiratory failure. The patient is currently intubated. 3. Hyperkalemia, improved. Etiology is not quite apparent. The patient has been evaluated by Nephrology. We think there is a combination of possibly medication or nutritional causes, and possibly tumor lysis from her tumor. We will check the uric acid as well as phosphorus to get an idea if it is intracellular spilling. 4. History of chronic obstructive pulmonary disease, in exacerbation. 5. Hypertension. 6. History of renal cell carcinoma, status post right nephrectomy. 7. Acute kidney injury. 8. 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 9. Bedbound with poor performance status. The patient depends on her sister, who is her caregiver, for all her activities of daily living. cc: Naga Iverson MD
[2019-03-06 15:45] LABS: URINE SOURCE CATH
[2019-03-06 15:59] LABS: BILIRUBIN URINE NEGATIVE (NEGATIVE); BLOOD URINE NEGATIVE (NEGATIVE); COLOR YELLOW; GLUCOSE URINE NEGATIVE (NEGATIVE); KETONE URINE NEGATIVE (NEGATIVE); LEUKOCYTES URINE SMALL (NEGATIVE); NITRITE URINE NEGATIVE (NEGATIVE); PROTEIN URINE TRACE mg/dL (NEGATIVE); SP GRAVITY URINE 1.021; TURBIDITY URINE CLEAR (CLEAR); UROBILINOGEN URINE NORMAL (NORMAL)
[2019-03-06 16:01] LABS: UR EPITHELIAL CELLS <10 /HPF (<10); URINE BACTERIA NEGATIVE /HPF; URINE RBC 20-40 /HPF (<10); URINE WBC <10 /HPF (<10)
[2019-03-06 16:02] LABS: UR CREAT RANDOM 89.9 mg/dL (11-20); UR PROT RANDOM 21.7 mg/dL
--- NOTE | 2019-03-06 18:20 | Diag Imaging Result Doc PS360 ---
EXAM: US RENAL 2 (RETROPER) COMPLETE INDICATION: decreased renal function TECHNIQUE: COMPARISON: None. FINDINGS: There has been a prior right nephrectomy. No discrete masses identified in the right nephrectomy bed. There is a 1.5 cm simple cortical cyst associated with the left kidney. The left kidney is unremarkable, otherwise. No discrete left renal mass or hydronephrosis is identified. The left kidney measures 12.5 cm in the greatest longitudinal axis with a cortex of 1 cm in thickness. There is a Fontenot catheter in the urinary bladder and the bladder is decompressed. IMPRESSION: 1.Prior right nephrectomy. 2.Small simple cyst associated with the left kidney. Unremarkable left kidney, otherwise. Electronically signed by Nestor Rogers 03/06/2019 6:18 PM
--- NOTE | 2019-03-06 20:53 | CONSULTATION ---
DATE OF CONSULTATION: 03/06/2019 REQUESTING PROVIDER: MARCELINA Fuchs. REASON FOR CONSULTATION: Respiratory failure. HISTORY OF PRESENT ILLNESS: This is a 78-year-old female with a medical history of COPD, bilateral pulmonary emboli, renal cell carcinoma with bone metastasis to the right hip, hypertension, and hyperlipidemia. She presented to the ER via EMS last night with unresponsiveness and desaturation on continuous home oxygen at 2 L. Initial workup in the ER revealed hypocapnic respiratory failure with metabolic acidosis, metabolic encephalopathy, hypokalemia, COPD with mild exacerbation and acute kidney injury. The patient was eventually intubated in the ER secondary to hypercapnia with pCO2 up to 114. The patient currently is still intubated and sedated with a propofol drip at 60 mcg/kg per minute. There is no acute distress noted. She has a Fontenot on with urine in the drainage bag which is luis and clear. There is no family at the bedside. All the information is obtained from the e-chart. PAST MEDICAL AND SURGICAL HISTORY: 1. COPD on home oxygen as needed. 2. History of bilateral pulmonary emboli. 3. Renal cell carcinoma with bone metastasis to the right hip, status post right nephrectomy, palliative treatment to right hip lytic lesion and chemotherapy. Chemotherapy was discontinued 6 months ago secondary to severe weight loss and being sick. Followed up by Dr. Arora. 4. Hypertension. 5. Hyperlipidemia. 6. Cataracts status post cataract surgery. 7. Status post left ankle fracture repair. 8. Status post knee arthroscopy. SOCIAL HISTORY: Per H and P, the patient lives with her sister. She is never and has no children. She does have friends and family who help take care of her. She is a former smoker with a [id number] smoking history, and quit in 1998. She drinks alcohol socially. She has no history of illicit drug use. FAMILY HISTORY: Positive for dementia, DVT, uterine cancer and colon cancer. ALLERGIES: No known drug allergies. REVIEW OF SYSTEMS: Unable to be obtained. PHYSICAL EXAMINATION: Vital Signs: Temperature of 98.6, blood pressure 107/48, pulse 70, respiratory rate 14, oxygen saturation 95% on AC mechanical ventilator with spontaneous rate 14, FiO2 40%, PEEP 5, and tidal volume 500. General: Intubated and sedated, lying in bed. There is no acute distress noted. HEENT: Atraumatic and normocephalic. Trachea midline. ET tube in place. Mucosa pink and moist. Respiratory: Mechanically ventilated. Symmetrical excursion. Clear to auscultation bilaterally. Cardiovascular: Regular rate and rhythm with S1 and S-2 appreciates. Gastrointestinal: Soft, mildly distended. Normoactive bowel sounds in all 4 quadrants. Extremities: No pedal edema. No cyanosis. No clubbing. Dorsalis pedis 2+ bilaterally. Neurologic: Extremity withdrawal noted with painful stimuli. LABORATORY DATA: White blood cells 7.57, hemoglobin 11.1, hematocrit 39.4, platelets 231, sodium 140, potassium 5.3, chloride 104, carbon dioxide 23, BUN 36, creatinine 1.3, glucose 91. ProBNP 8902. ABG: pH of 7.37 pCO2 of 48, pO2 of 125, HC03 of 26.1, base excess of 1.6, oxyhemoglobin 95.7 on mechanical ventilator with spontaneous rate 14, FiO2 of 35%, tidal volume 500 and PEEP 5. IMAGING DATA: Chest x-ray this morning showed atelectasis or infiltrate at the left lower lobe, worse from prior. ASSESSMENT: This is a 78-year-old female with a medical history of COPD, bilateral 2 pulmonary emboli, renal cell carcinoma with bone metastases to the right hip, hypertension, and hyperlipidemia. She has been admitted since yesterday with altered mental status, acute hypoxic hypercapnic respiratory failure, hypokalemia, COPD exacerbation and acute kidney injury. 1. Acute hypercapnic and hypoxemic respiratory failure. Hypercapnia has been significantly improved since yesterday after intubation. Her pCO2 this morning was 48. 2. Altered mental status, likely secondary to hyper hypercapnia with initial pCO2 of 114. 3. Left lower lobe atelectasis versus infiltrate. 4. Chronic obstructive pulmonary disease with mild exacerbation. 5. Hypokalemia. 6. Acute kidney injury. 7. 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 PLAN: 1. we checked and titrated AC mechanical ventilator to patient needs per clinical protocols, and we will start weaning trials when appropriate. 2. Continue antibiotic (Levaquin), bronchodilators. 3. we titrated sedation per patient needs and clinical protocols 4. Follow up with arterial blood gas, complete blood count, basic metabolic panel, sputum culture, blood culture, and chest x-ray. 5. Further recommendations pending hospital course. Thank you for the courtesy of this consult. I spent 40 minutes in this process. cc: lCive Moreira MD MTDD
[2019-03-06] MEDS: LEVAQUIN 250 MG in NS 50 ML IV SCH (22:15)
[2019-03-07] MEDS: DIPRIVAN 1% 1,000 MG/100 ML BOTTLE IV SCH ×3 (02:02→09:09)
[2019-03-07] MEDS: DUONEB (A & A) INH SCH ×6 (03:52→23:48)
[2019-03-07] MEDS: NS 1,000 ML IV SCH ×3 (04:47→15:14)
[2019-03-07 04:52] LABS: ALLEN TEST YES; BE 1.3 mmoll (-3.0-3.0); BLOOD TYPE ARTERIAL; PCO2(98.6) 40 mmHg (35-45); PO2(98.6) 197 mmHg (60-100); SAMPLE BLOOD; SRATE 14 BPM; TVOL 500 mL; pH(98.6) 7.42 (7.35-7.45)
[2019-03-07 05:02] LABS: MODALITY VENTILATOR
[2019-03-07 06:32] LABS: BASO# 0.02 X1000 (0.0-0.2); BASO% 0.3 % (0.0-0.8); EOS# 0.21 X1000 (0.0-0.7); EOS% 3.3 % (0.0-10.0); HEMATOCRIT 35.8 % (37.0-47.0); HEMOGLOBIN 10.3 g/dL (12.0-16.0); IMM GRAN# 0.02 X1000 (0.0-0.04); IMM GRAN% 0.3 % (0.0-0.5); LYMPH# 0.84 X1000 (1.2-3.4); LYMPH% 13.1 % (20.5-51.1); MCH 25.6 PG (27-31); MCHC 28.8 g/dL (33-37); MCV 88.8 FL (81-99); MONO% 9.3 % (1.7-9.3); MPV 10.9 FL (7.4-10.4); NEUT# 4.74 X1000 (1.4-6.5); NEUT% 73.7 % (42.2-75.2); PLT 197 X1000 (130-400); RBC 4.03 XMIL (4.2-5.4); RDW 15.8 % (11.5-14.5); WBC 6.43 X1000 (4.8-10.8)
[2019-03-07 06:38] LABS: ALBUMIN 2.8 g/dL (3.5-5.0); CALCIUM 7.4 mg/dL (8.8-10.2); CREATININE 1.3 mg/dL (0.5-0.9); PHOSPHORUS 2.5 mg/dL (2.7-4.5); POTASSIUM 3.6 mmol/L (3.5-5.1); URIC ACID 7.3 mg/dL (2.4-5.7)
[2019-03-07 07:17] LABS: EOS 2 % (1-10); LYMPHS 8 % (21-51); SEGS 88 % (42-75)
--- NOTE | 2019-03-07 07:36 | Diag Imaging Result Doc PS360 ---
CHEST-PORTABLE - 03/07/2019 INDICATION: short of breath COMPARISON: 03/06/2019 FINDINGS: Support tubes are stable and in good position. Stable cardiomegaly. Stable hazy infiltrate or atelectasis at the left lung base. No new infiltrates. No large pleural effusion. IMPRESSION: No change from prior. Electronically signed by Basilio Frias 03/07/2019 7:34 AM
--- NOTE | 2019-03-07 11:22 | PROGRESS NOTE ---
DATE: 03/07/2019 SUBJECTIVE: This morning, Ms. Oden continues to be fairly the same. She is intubated and sedated. The sister, who is her caregiver, was at the bedside at the time of the encounter. The niece also just walked in at the time of the encounter. OBJECTIVE: Vital Signs: Blood pressure is 129/57, pulse of 79, respirations 16, temperature is 97.9 degrees. General: Ms. Oden is a 78-year-old, female. She is in bed, currently intubated and sedated on propofol. HEENT: Mucosa is pink and moist. Anicteric. Acyanotic. Neck: Supple. Chest: Good air entry bilaterally. There are some transmitted sounds from the ventilator. Cardiovascular: Regular rate and rhythm. No murmurs, no rubs, no gallops. GI: Abdomen was soft. Bowel sounds present. There was no hepatosplenomegaly. Extremities: No pedal edema. Distal pulses present. OPERATIONS DISPATCHER: The patient is sedated on propofol. She will, however, withdraw to painful stimulations. Pupils were pinpoint, but reactive. The patient's I's and O's show urine output was 940. She is currently positive balance of 3162. IMAGING STUDIES: A chest x-ray this morning showed no change from prior. No new infiltrates. No large pleural effusion. LABORATORY DATA: WBC is 6.43, hemoglobin is 10.3, platelet count of 197,000. Chemistry is also reviewed. Creatinine is 1.3. Rest of chemistry is unremarkable. The patient's potassium is 3.6. CURRENT MEDICATIONS: Have all been reviewed. The patient is on levofloxacin. ASSESSMENT: 1. Altered mental status at home, most likely due to CO2 narcosis. 2. Acute hypoxemic and hypercarbic respiratory failure. The patient is currently intubated. 3. Hyperkalemia, improved. Etiology is, at this point, unknown. Nephrology is on board. 4. History of chronic obstructive pulmonary disease, in mild exacerbation. 5. Hypertension, controlled. 6. History of renal cell carcinoma, status post right nephrectomy. 7. Metastatic renal cell cancer to right iliac bone. Imaging studies seem to suggest some increase in the tumor burden. 8. Acute kidney injury. Will continue to monitor. 9. Bedbound with poor performance status at home. The patient depends on her sister as her caregiver for all activities of daily living. In general, I think Ms. Oden is doing fair. She will be going through a weaning trial today as well, and will see if we can get her extubated. Her disposition is going to depend on the rest of the hospital course. cc: Naga Iverson MD Addendum: successfully extubated today. continue to monitor. Possible transfer to floor tomorrow. ILANAD
[2019-03-07] MEDS: SODIUM CHLORIDE 0.9% INJ SCH (11:43)
[2019-03-07] MEDS: PEPCID IV SCH ×2 (11:43→23:46)
--- NOTE | 2019-03-07 13:16 | PROVIDER PROGRESS NOTE ---
Progress Note Dr. Moreira Progress Note/Pulmonary and or critical care We appreciated progress of care, Complications, change in diagnosis, and instructions to patient. Subjective: We note the level of consciousness, bed (chair) position, family presence (if any), level of lethargy, feeling of symptoms, and changes from baseline condition/symptom. The patient is intubated and sedated. She is on AC at this time with setting 14, 30%, 500 and 5. She grimaces her face with oral care and suction. RN at the [facility] is holding propofol drip for weaning trials. She has no fever overnight. Sister and Sisters daughter at the bedside. Objective: Vital Signs: We reviewed EMR current values for Pulse rate, Blood pressure, Pulse rate, respiratory rate and Pulse oximetry. Also noted other values and trends if present (e.g. I/O, CVP). T 97.9, MI 69, RR 14, BP 105/43 and SaO2 99 on AC 14, 30%, 500 and 5. I/O 2486 ml. Physical Examination: General: Intubated. Lying in bed with no acute distress noted. HEENT: Normocephalic. Atraumatic. ETT in place. Mucus pink and moist. Chest: Mechanically ventilated. Symmetrical excursion. Clear to auscultation bilaterally. CVS: Regular rate and rhythm with S1 and S2 appreciated. Abdomen: Soft. Non-distended. Normoactive bowel sounds in all 4 quadrants noted. Extremities: BLE pitting edema 1+. No cyanosis. No clubbing. Dorsalis pedis 2+ bilaterally. Neuro: Sedated. Labs and Radiology: Reviewed available labs and radiology values available at time of EMR review. Laboratory Results 03/06/19 03/06/19 03/07/19 15:25 15:25 04:15 WBC RBC Hgb Hct MCV MCH MCHC RDW Std Deviation Plt Count MPV Immature Gran % (Auto) Neut % (Auto) Lymph % (Auto) Hinds % (Auto) Eos % (Auto) Baso % (Auto) Immature Gran # (Auto) Neut # (Auto) Lymph # (Auto) Hinds # (Auto) Eos # (Auto) Baso # (Auto) Segmented Neutrophils Lymphocytes Eosinophils Unidentified Cells Specimen Type Sample Site pH pCO2 pO2 HCO3 Base Excess Talon Test A-a O2 Difference Lactate Blood Gas Modality Vent Mode Spontaneous Rate FiO2 % Tidal Volume PEEP Sodium 142 Potassium 3.6 D Chloride 105 Carbon Dioxide 24 L Anion Gap 13 BUN 33 H Creatinine 1.3 H Estimated GFR/1.73 m2 40 BUN/Creatinine Ratio 25 Glucose 74 Calculated Osmolality 289 Uric Acid 7.3 H Calcium 7.4 L D Phosphorus 2.5 L Albumin 2.8 L Urine Source CATH Urine Color YELLOW Urine Turbidity CLEAR Urine pH 6.0 Ur Specific Donald 1.021 Urine Protein TRACE A Ur Glucose (Stick) NEGATIVE Ur Ketones (Stick) NEGATIVE Urine Blood NEGATIVE Urine Nitrite NEGATIVE Urine Bilirubin NEGATIVE Urobilinogen Dipstick NORMAL Urine Leukocytes SMALL A Urine WBC (Auto) <10 Urine RBC (Auto) 20-40 A U Epithel Cells (Auto) <10 Urine Bacteria (Auto) NEGATIVE Ur Random Creatinine 89.9 H U Random Total Protein 21.7 Ur Random Sodium 50 03/07/19 03/07/19 04:15 04:43 WBC 6.43 RBC 4.03 L Hgb 10.3 L Hct 35.8 L MCV 88.8 MCH 25.6 L MCHC 28.8 L RDW Std Deviation 15.8 H Plt Count 197 MPV 10.9 H Immature Gran % (Auto) 0.3 Neut % (Auto) 73.7 Lymph % (Auto) 13.1 L Hinds % (Auto) 9.3 Eos % (Auto) 3.3 Baso % (Auto) 0.3 Immature Gran # (Auto) 0.02 Neut # (Auto) 4.74 Lymph # (Auto) 0.84 L Hinds # (Auto) 0.60 H Eos # (Auto) 0.21 Baso # (Auto) 0.02 Segmented Neutrophils 88 H Lymphocytes 8 L Eosinophils 2 Unidentified Cells 2.0 Specimen Type ARTERIAL Sample Site R RADIAL pH 7.42 pCO2 40 pO2 197 H HCO3 26.0 Base Excess 1.3 Talon Test YES A-a O2 Difference -33.0 Lactate 1.20 Blood Gas Modality VENTILATOR Vent Mode A/C PC Spontaneous Rate 14 FiO2 % 30.0 Tidal Volume 500 PEEP 5.0 Sodium Potassium Chloride Carbon Dioxide Anion Gap BUN Creatinine Estimated GFR/1.73 m2 BUN/Creatinine Ratio Glucose Calculated Osmolality Uric Acid Calcium Phosphorus Albumin Urine Source Urine Color Urine Turbidity Urine pH Ur Specific Donald Urine Protein Ur Glucose (Stick) Ur Ketones (Stick) Urine Blood Urine Nitrite Urine Bilirubin Urobilinogen Dipstick Urine Leukocytes Urine WBC (Auto) Urine RBC (Auto) U Epithel Cells (Auto) Urine Bacteria (Auto) Ur Random Creatinine U Random Total Protein Ur Random Sodium Assessment: Acute respiratory failure, hypercapnic and hypoxemic. Encephalopathy, likely secondary to hypercapnia. LLL atelectasis vs. infiltrate. Stable COPD in mild exacerbation. Hyperkalemia. Resolved. LUCINDA. Stable. 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 S/P right nephrectomy and some chemotherapy. Plan: Continue current treatment and supportive care per admitting and other teams on the case. Start weaning trials today. Antibiotic (Levaquin) and bronchodilators. Appropriate DVT and GI prophylaxis Ventilator settings checked and titrated to Patients needs per clinical protoco ls with closely monitoring. Sedation (Diprivan) titrated to patients needs per clinical protocols with closely monitoring. Discuss care plans with family at the bedside and all questions answered. Input was appreciated from Admitting MD and other teams on the case. Evaluation time in minutes: 32 minutes.
[2019-03-07 13:32] LABS: ALLEN TEST YES; BE -0.1 mmoll (-3.0-3.0); BLOOD TYPE ARTERIAL; HCO3-(ACT) 24.9 mmoll (20.0-26.0); METHB 0.5 % (0.0-1.5); MODALITY VENTILATOR; O2(CT) 15.9 mL/dL (15.0-23.0); O2HB 97.2 % (95.0-99.0); PCO2(98.6) 44 mmHg (35-45); PO2(98.6) 192 mmHg (60-100); SAMPLE BLOOD; SAO2 99.1 % (95.0-100.0); THB 11.3 g/dL (11.5-17.4); pH(98.6) 7.37 (7.35-7.45)
--- NOTE | 2019-03-07 15:12 | PROVIDER PROGRESS NOTE ---
Progress Note Subjective: intubated and sedated Objective: temperature 97.9, pulse 72, respirations 14, but pressure 129/57, oxygen sat 99% and 30% FiO2 mechanical ventilation 14. General: Elderly white female in no acute distress who is intubated and sedated. HEENT: normocephalic, atraumatic, conjunctiva pink, pupils equal and reactive. Trachea midline. Skin: Pale, warm, and dry. Neck: supple, 6cm JVD Cardiovascular: S1s2, regular rate and rhythm. No gallop or murmur. Respiratory: coarse lung sounds anteriorly. Abdomen: soft, obese, nontender, nondistended. Bowel sounds hypoactive. :non inspected, acevedo in place with clear urine Extremities: minimal edema. Neurological:sedated, unable to assess orientation due to ET tube. Labs: WBC 6.43, hemoglobin 10.3, hematocrit 35.8, platelet count 197, sodium 142, potassium 3.6, chloride 105, carbon dioxide 24, BUN 33, creatinine 1.3, albumin 2.8. Intake 3426, output 940. Impression: needs labs ordered Hyperkalemia. Resolved. Potassium 3.6 today. Worsening renal insufficiency. Her Creatinine is stable at 1.3. No changes. Oliguria. Primary has started normal saline. Blood pressure. Stable. Anemia. Stable. Acid base balance. Stable. Medication review. No changes. We will sign off today. Please call if we can help.[email or web address]
[2019-03-07] MEDS: LEVAQUIN 250 MG in NS 50 ML IV SCH (23:46)
[2019-03-08] MEDS: DUONEB (A & A) INH SCH ×6 (04:02→23:24)
[2019-03-08] MEDS: NS 1,000 ML IV SCH (04:35)
[2019-03-08 05:06] LABS: ALLEN TEST YES; BE -1.7 mmoll (-3.0-3.0); BLOOD TYPE ARTERIAL; HCO3-(ACT) 23.6 mmoll (20.0-26.0); O2(CT) 14.9 mL/dL (15.0-23.0); O2HB 96.9 % (95.0-99.0); PO2(98.6) 100 mmHg (60-100); SAMPLE BLOOD; SAO2 99.4 % (95.0-100.0); THB 10.8 g/dL (11.5-17.4)
[2019-03-08 05:09] LABS: MODALITY BI PAP; PCO2(98.6) 51 mmHg (35-45)
[2019-03-08 06:27] LABS: INR 1.11; PROTIME 14.4 Seconds (11.0-16.0); PTT 30.5 Seconds (22.3-41.8)
[2019-03-08 06:38] LABS: AGAP 12; ALBUMIN 2.6 g/dL (3.5-5.0); BUN 22 mg/dL (8-22); CALCIUM 7.1 mg/dL (8.8-10.2); CHLORIDE 110 mmol/L (98-107); COSMO 288; CREATININE 0.9 mg/dL (0.5-0.9); ESTIMATED GFR > 60; GLUCOSE 67 mg/dL (70-104); PHOSPHORUS 2.1 mg/dL (2.7-4.5); POTASSIUM 3.2 mmol/L (3.5-5.1); SODIUM 144 mmol/L (136-145); TCO2 22 mmol/L (25-35)
[2019-03-08 06:48] LABS: HEMATOCRIT 34.9 % (37.0-47.0); HEMOGLOBIN 10.3 g/dL (12.0-16.0); MCH 26.8 PG (27-31); MCHC 29.5 g/dL (33-37); MCV 90.6 FL (81-99); MPV 10.7 FL (7.4-10.4); RBC 3.85 XMIL (4.2-5.4); RDW 16.5 % (11.5-14.5); WBC 6.08 X1000 (4.8-10.8)
--- NOTE | 2019-03-08 07:15 | Diag Imaging Result Doc PS360 ---
EXAM: CHEST-PORTABLE 03/08/2019 HISTORY: short of breath TECHNIQUE: AP portable at 0520 COMMENT: There is hazy opacity over the left base. This is slightly worse than on 03/07/2019. The heart size is enlarged. IMPRESSION: Pulmonary edema versus pneumonia particularly in the left lower lobe. Electronically signed by Liam Willson 03/08/2019 7:12 AM
[2019-03-08] MEDS ORDERED: POTASSIUM PHOSPHATE 15 MMOL in NS 250 ML IV ONE (08:14)
[2019-03-08] MEDS: LOVENOX SUBQ SCH (08:51)
--- NOTE | 2019-03-08 08:56 | PROGRESS NOTE ---
DATE: 03/08/2019 SUBJECTIVE: The patient is lying comfortably in bed. She feels better today. She is on nasal cannula around 2 L. Vital signs are stable. Her urine output is much better as well as the kidney function, which actually is back to her baseline. I would replace the potassium and phosphorus today, which is slightly decreased. I would stop the IV fluids and I will probably start feeding this patient today if she passed a swallow evaluation. OBJECTIVE: Vital Signs: Temperature 98 degrees, pulse 65, respiratory rate 20, blood pressure 151/61, oxygen saturation 96 on 2 L of nasal cannula. HEENT: Head normocephalic, no trauma. PERRLA. Neck: Supple, no JVD. No masses. Central trachea. Chest: Decreased breath sounds at the bases with some crepitus and rales. Abdomen: Soft, nontender, nondistended. No hepatosplenomegaly. Extremities: Pedal edema. No clubbing. No cyanosis. Neurological: The patient is awake. She is alert. She is oriented x2. She is not oriented to time. She does not remember being intubated. LABORATORY: WBC 6, hemoglobin 10.3, hematocrit 34.9, platelets 202,000, sodium 144, potassium 3.2, chloride 110, bicarbonate 22, BUN 22, creatinine 0.9, glucose 67, calcium 7.1, phosphorus 2.1, albumin 2.6. ASSESSMENT AND PLAN: 1. Altered mental status at home, likely due to CO2 retention. This seems to be better. I am not sure if she has a baseline dementia, but she is awake and she is oriented x2 today. 2. Acute hypoxemic hypercarbic respiratory failure. This patient is actually on home O2, so this is likely an acute on chronic hypoxemic and likely acute on chronic hypercarbic respiratory failure. She was extubated already. She seems to be doing better. She was extubated yesterday. X-ray showed pulmonary edema versus pneumonia at the level of the left lower lobe. I will stop the fluids and monitor. She is not having any respiratory problems at this moment. 3. History of chronic obstructive pulmonary disease. She has no wheezing at this moment. We will just monitor. Continue breathing treatment. 4. Hypertension controlled. 5. History of renal cell carcinoma status post right nephrectomy with metastasis to the bone, I believe the right iliac bone. I do believe hospice will be on board. I do believe they will talk to her today and the rest of the family as well. 6. Bedbound with poor performance status at home, aware. 7. Hypophosphatemia with hypokalemia. I will replace. cc: Phil Angelo MD
[2019-03-08] MEDS: PEPCID IV SCH ×2 (11:16→23:12)
[2019-03-08] MEDS: SODIUM CHLORIDE 0.9% INJ SCH (11:16)
--- NOTE | 2019-03-08 14:08 | PROVIDER PROGRESS NOTE ---
Progress Note Dr. Moreira Progress Note/Pulmonary and or critical care We appreciated progress of care, Complications, change in diagnosis, and instructions to patient. Subjective: We note the level of consciousness, bed (chair) position, family presence (if any), level of lethargy, feeling of symptoms, and changes from baseline condition/symptom. The patient is sitting in bed and having lunch with no acute distress noted. She was successfully extubated yesterday. She is on a NC at 2L at this time. She states she is feeling well. She does have some wet cough without production at times. She reports no chest pain, chest congestion or sore throat. She has no fever overnight. Sister and Sisters daughter at the bedside. Objective: Vital Signs: We reviewed EMR current values for Pulse rate, Blood pressure, Pulse rate, respiratory rate and Pulse oximetry. Also noted other values and trends if present (e.g. I/O, CVP). T 98.0, VT 70, RR 23, BP 162/60 and SaO2 97 on NC 2 L. I/O 917 ml. Physical Examination: General: Sitting in bed and having lunch with no acute distress noted. HEENT: Normocephalic. Atraumatic. Mucus pink and moist. Chest: Even and unlabored. Symmetrical excursion. Clear to auscultation bilaterally. CVS: Regular rate and rhythm with S1 and S2 appreciated. Abdomen: Soft. Non-distended. Normoactive bowel sounds in all 4 quadrants noted. Extremities: BLE pitting edema 1+. No cyanosis. No clubbing. Dorsalis pedis 2+ bilaterally. Neuro: A/O x3. Answer simple questions. Follow simple commands. Labs and Radiology: Reviewed available labs and radiology values available at time of EMR review. Laboratory Results 03/08/19 03/08/19 03/08/19 04:00 04:00 04:00 WBC 6.08 RBC 3.85 L Hgb 10.3 L Hct 34.9 L MCV 90.6 MCH 26.8 L MCHC 29.5 L RDW Std Deviation 16.5 H Plt Count 202 MPV 10.7 H PT 14.4 INR 1.11 PTT (Actin FS) 30.5 Specimen Type Sample Site pH pCO2 pO2 HCO3 Base Excess Oxyhemoglobin ABG O2 Sat (Calculated) ABG O2 Saturation ABG Carboxyhemoglobin ABG Methemoglobin Talon Test A-a O2 Difference Total Hemoglobin Lactate Blood Gas Modality Vent Mode FiO2 % Inspiratory BiPAP Expiratory BiPAP Sodium 144 Potassium 3.2 L Chloride 110 H Carbon Dioxide 22 L Anion Gap 12 BUN 22 Creatinine 0.9 Estimated GFR/1.73 m2 > 60 BUN/Creatinine Ratio 24 Glucose 67 L Calculated Osmolality 288 Calcium 7.1 L Phosphorus 2.1 L Albumin 2.6 L 03/08/19 04:05 WBC RBC Hgb Hct MCV MCH MCHC RDW Std Deviation Plt Count MPV PT INR PTT (Actin FS) Specimen Type ARTERIAL Sample Site R RADIAL pH 7.30 L pCO2 51 H* pO2 100 HCO3 23.6 Base Excess -1.7 Oxyhemoglobin 96.9 ABG O2 Sat (Calculated) 14.9 L ABG O2 Saturation 99.4 ABG Carboxyhemoglobin 2.50 ABG Methemoglobin 0.0 Talon Test YES A-a O2 Difference 50.0 Total Hemoglobin 10.8 L Lactate 0.80 Blood Gas Modality BI PAP Vent Mode BIPAP FiO2 % 30.0 Inspiratory BiPAP 12.0 Expiratory BiPAP 8.0 Sodium Potassium Chloride Carbon Dioxide Anion Gap BUN Creatinine Estimated GFR/1.73 m2 BUN/Creatinine Ratio Glucose Calculated Osmolality Calcium Phosphorus Albumin Assessment: Acute respiratory failure, hypercapnic and hypoxemic. Intubated on 03/05/19; extubated on 03/07/19. On 2 L NC at this time. pCO2 elevated to 51 this am. Encephalopathy, likely secondary to hypercapnia. Resolved. LLL atelectasis vs. pneumonia. Stable COPD in mild exacerbation. Hyperkalemia. Resolved. LUCINDA. Improved. 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 S/P right nephrectomy and some chemotherapy. Plan: Continue current treatment and supportive care per admitting and other teams on the case. Antibiotic (Levaquin) and bronchodilators. Appropriate DVT and GI prophylaxis Supplemental oxygen titrated to Patients needs per clinical protocols. BiPAP QHS and PRN. Discuss patients conditions and care plans with family at the bedside and all questions answered. Input was appreciated from Admitting MD and other teams on the case. Evaluation time in minutes: 33 minutes.
[2019-03-08] MEDS: LEVAQUIN 250 MG in NS 50 ML IV SCH (23:13)
[2019-03-09] MEDS ORDERED: LOPRESSOR IV ONE (01:52)
[2019-03-09] MEDS ORDERED: LANOXIN IV ONE (01:52)
--- NOTE | 2019-03-09 02:15 | EKG Report ---
Test Performed on : 03/09/2019 01:46:37 AM Test Reason : TCHYCARDIA Blood Pressure : / mmHG Vent. Rate : 118 BPM Atrial Rate : 133 BPM P-R Int : 000 ms QRS Dur : 078 ms QT Int : 352 ms P-R-T Axes : 000 016 -41 degrees QTc Int : 493 ms Atrial fibrillation. with rapid ventricular response. with premature ventricular or aberrantly conduc colt complexes. Nonspecific T wave abnormality Abnormal ECG When compared with ECG of 06-MAR-2019 06:41, Atrial fibrillation. has replaced Sinus rhythm. Vent. rate has increased BY 47 BPM Nonspecific T wave abnormality, worse in Inferior leads Nonspecific T wave abnormality now evident in Lateral leads Confirmed by Aman ROE, Robi Stubbs ([id number]) on 03/11/2019 9:22:38 AM
[2019-03-09] MEDS: DUONEB (A & A) INH SCH ×6 (03:37→23:27)
[2019-03-09 04:47] LABS: ALLEN TEST YES; BE -0.4 mmoll (-3.0-3.0); BLOOD TYPE ARTERIAL; HCO3-(ACT) 24.6 mmoll (20.0-26.0); METHB 0.4 % (0.0-1.5); O2(CT) 9.7 mL/dL (15.0-23.0); O2HB 95.8 % (95.0-99.0); PO2(98.6) 83 mmHg (60-100); SAMPLE BLOOD; SAO2 97.8 % (95.0-100.0); THB 7.1 g/dL (11.5-17.4)
[2019-03-09 04:49] LABS: PCO2(98.6) 53 mmHg (35-45)
[2019-03-09 04:50] LABS: MODALITY CANNULA
--- NOTE | 2019-03-09 07:30 | Diag Imaging Result Doc PS360 ---
EXAM: CHEST-PORTABLE HISTORY: short of breath TECHNIQUE: Single view COMPARISON: 03/08/2019 FINDINGS: The lungs are well expanded except for a small amount of atelectasis in the lung bases. Questionable underlying infiltrate in the left base.. A small pleural effusions. The heart is enlarged. Decreased pulmonary edema. IMPRESSION: Mild interval improvement. Electronically signed by Neri Gage 03/09/2019 7:28 AM
--- NOTE | 2019-03-09 07:34 | EKG Report ---
Test Performed on : 03/09/2019 07:01:14 AM Test Reason : rhythm change Blood Pressure : / mmHG Vent. Rate : 068 BPM Atrial Rate : 068 BPM P-R Int : 140 ms QRS Dur : 082 ms QT Int : 430 ms P-R-T Axes : -13 007 025 degrees QTc Int : 457 ms Normal sinus rhythm. Normal ECG When compared with ECG of 09-MAR-2019 01:46, (Unconfirmed) Sinus rhythm. has replaced Atrial fibrillation. Vent. rate has decreased BY 50 BPM Nonspecific T wave abnormality, improved in Inferior leads Confirmed by Aman ROE, Robi Stubbs ([id number]) on 03/11/2019 9:24:21 AM
[2019-03-09 07:38] LABS: AGAP 11; BUN 14 mg/dL (8-22); CHLORIDE 110 mmol/L (98-107); COSMO 288; CREATININE 0.8 mg/dL (0.5-0.9); ESTIMATED GFR > 60; GLUCOSE 70 mg/dL (70-104); MAGNESIUM 1.3 mg/dL (1.5-2.7); PHOSPHORUS 2.7 mg/dL (2.7-4.5); POTASSIUM 3.7 mmol/L (3.5-5.1); SODIUM 145 mmol/L (136-145); TCO2 24 mmol/L (25-35)
--- NOTE | 2019-03-09 07:51 | PROGRESS NOTE ---
DATE: 03/09/2019 SUBJECTIVE: The patient is resting comfortably in bed. She is feeling better. She is on a nasal cannula. Her vital signs at this moment at this moment are stable, but she had an episode of atrial fibrillation with rapid ventricular response during the night. It is documented, and also. I just had an EKG done and this showed sinus rhythm. I have requested an evaluation by Cardiology Department. The family at this point is deciding if she needs to go home with hospice or not, pending Hematology/Oncology Department evaluation. They would like to talk to Dr. Arora about it. OBJECTIVE: Vital Signs: Temperature 97.9 degrees, pulse 74, respiratory rate 19, blood pressure 136/66, oxygen saturation 97% on nasal cannula. HEENT: Head normocephalic, no trauma. PERRLA. Neck: Supple. No JVD. No masses. Central trachea. Chest: Decreased breath sounds at the bases with some crepitus. Abdomen: Soft, nontender, nondistended. No hepatosplenomegaly. Extremities: There is 2 to 3+ lower extremity edema. No clubbing. No cyanosis. Neurological: Patient is awake. She is alert. She is oriented x2. She is not oriented to time. She does not remember being intubated. LABORATORY DATA: A pH of 7.3, pCO2 of 53, PO2 of 83. Pending BMP, magnesium, and phosphorus. ASSESSMENT AND PLAN: 1. Altered mental status, likely due to CO2 retention. She seems to be better. Probably this is her baseline. I am not quite sure if she has a baseline dementia also, but she is awake and oriented x2 and she is tolerating by mouth. 2. Acute hypoxemic and hypercarbic respiratory failure. It looks like this patient is on home oxygen, so this is likely acute on chronic hypoxemic and likely an acute on chronic hypercarbic respiratory failure as well. She has been extubated a couple days ago. She seems to be doing better. X-ray looks about the same for me. I will probably give her a dose of Lasix today if the kidney function is okay. She came in with a creatinine level of 1.3, and she seems to have a mild chronic kidney disease. Pending lab work at this moment. 3. History of chronic obstructive pulmonary disease. She is not wheezing at this moment. Continue with the same management and breathing treatment. 4. Hypertension, stable. 5. Episode of atrial fibrillation with rapid ventricular response. As per the patient, she never had atrial fibrillation before, and I do not see this listed on her past medical history. Cardiology has been consulted. 6. History of renal cell carcinoma, status post right nephrectomy with metastasis to the bone, I believe is the right iliac bone. It looks like the family wants to meet with Dr. Arora to decide if this patient can go home with hospice or continue with treatment. I will wait for further recommendations. 7. Bed-bound with poor performance status at home. Aware. 8. Hypophosphatemia and hypokalemia. It has been replaced yesterday, pending lab work today. cc: Phil Angelo MD
[2019-03-09 07:52] LABS: CALCIUM 6.8 mg/dL (8.8-10.2)
[2019-03-09] MEDS: LOVENOX SUBQ SCH (08:30)
[2019-03-09] MEDS: ZOLOFT PO SCH (08:30)
[2019-03-09] MEDS: SODIUM CHLORIDE 0.9% INJ SCH (12:41)
[2019-03-09] MEDS: PEPCID IV SCH ×2 (12:41→22:30)
[2019-03-09 13:38] LABS: URINE SOURCE CATH
[2019-03-09 13:42] LABS: BILIRUBIN URINE NEGATIVE (NEGATIVE); BLOOD URINE SMALL (NEGATIVE); COLOR YELLOW; GLUCOSE URINE NEGATIVE (NEGATIVE); KETONE URINE NEGATIVE (NEGATIVE); LEUKOCYTES URINE NEGATIVE (NEGATIVE); NITRITE URINE NEGATIVE (NEGATIVE); PROTEIN URINE TRACE mg/dL (NEGATIVE); SP GRAVITY URINE 1.015; TURBIDITY URINE HAZY (CLEAR); UROBILINOGEN URINE NORMAL (NORMAL)
[2019-03-09 13:45] LABS: UR EPITHELIAL CELLS <10 /HPF (<10); URINE BACTERIA NEGATIVE /HPF; URINE CRYSTALS NONE SEEN; URINE WBC <10 /HPF (<10)
--- NOTE | 2019-03-09 15:53 | PROVIDER PROGRESS NOTE ---
Progress Note Dr. Moreira Progress Note/Pulmonary and or critical care We appreciated progress of care, Complications, change in diagnosis, and instructions to patient. Subjective: We note the level of consciousness, bed (chair) position, family presence (if any), level of lethargy, feeling of symptoms, and changes from baseline condition/symptom. The patient is lying in bed with no acute distress noted. She states she is feeling better. She is on NC 2 L at this time and tolerates well. She did not use BiPAP last night as she cant tolerate it. She denies any pain or frequent cough. She has no fever overnight. No family at the bedside. Objective: Vital Signs: We reviewed EMR current values for Pulse rate, Blood pressure, Pulse rate, respiratory rate and Pulse oximetry. Also noted other values and trends if present (e.g. I/O, CVP). No fever in last 24 hours, MO 78, RR 18, BP 149/69 and SaO2 97 on NC 2 L. Physical Examination: General: Lying in bed with no acute distress noted. HEENT: Normocephalic. Atraumatic. Mucus pink and moist. Chest: Even and unlabored. Symmetrical excursion. Diminished breathing sounds bilaterally. CVS: Regular rate and rhythm with S1 and S2 appreciated. Abdomen: Soft. Non-distended. Normoactive bowel sounds in all 4 quadrants noted. Extremities: BLE pitting edema 1+. No cyanosis. No clubbing. Dorsalis pedis 2+ bilaterally. Neuro: A/O x3. Answer simple questions. Follow simple commands. Labs and Radiology: Reviewed available labs and radiology values available at time of EMR review. Laboratory Results 03/09/19 03/09/19 03/09/19 04:30 04:37 13:30 Specimen Type ARTERIAL Sample Site R RADIAL pH 7.30 L pCO2 53 H* pO2 83 HCO3 24.6 Base Excess -0.4 Oxyhemoglobin 95.8 ABG O2 Sat (Calculated) 9.7 L ABG O2 Saturation 97.8 ABG Carboxyhemoglobin 1.60 ABG Methemoglobin 0.4 Talon Test YES A-a O2 Difference 50.0 Total Hemoglobin 7.1 L Lactate 0.70 Liter Flow 2.0 Blood Gas Modality CANNULA FiO2 % 28.0 Sodium 145 Potassium 3.7 D Chloride 110 H Carbon Dioxide 24 L Anion Gap 11 BUN 14 Creatinine 0.8 Estimated GFR/1.73 m2 > 60 BUN/Creatinine Ratio 18 Glucose 70 Calculated Osmolality 288 Calcium 6.8 L* Phosphorus 2.7 Magnesium 1.3 L Urine Source CATH Urine Color YELLOW Urine Turbidity HAZY Urine pH 6.0 Ur Specific [employer] 1.015 Urine Protein TRACE A Ur Glucose (Stick) NEGATIVE Ur Ketones (Stick) NEGATIVE Urine Blood SMALL A Urine Nitrite NEGATIVE Urine Bilirubin NEGATIVE Urobilinogen Dipstick NORMAL Urine Leukocytes NEGATIVE Urine WBC (Auto) <10 Urine RBC (Auto) 10-20 A U Epithel Cells (Auto) <10 Urine Bacteria (Auto) NEGATIVE Urine Crystals NONE SEEN Small Round Cells Not Reportable Urine Casts Not Reportable Urine Yeast-like Cells Not Reportable Assessment: Acute respiratory failure, hypercapnic and hypoxemic. Intubated on 03/05/19; extubated on 03/07/19. Improved. Encephalopathy at presentation, likely secondary to hypercapnia. Improved. LLL atelectasis vs. infiltrate. Stable COPD in mild exacerbation. Hyperkalemia. Resolved. LUCINDA. Resolved. 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 S/P right nephrectomy and some chemotherapy. Plan: Continue current treatment and supportive care per admitting and other teams on the case. Antibiotic (Levaquin) and bronchodilators. Appropriate DVT and GI prophylaxis Supplemental oxygen titrated to Patients needs per clinical protocols. Educate on the importance of BiPAP and encourage to use it at bedtime. Encourage incentive spirometer use, deep breathing and cough. Input was appreciated from Admitting MD and other teams on the case. Evaluation time in minutes: 34 minutes.
--- NOTE | 2019-03-09 17:55 | HEMO/ONC CONSULTATION ---
DATE: 03/08/2019 REQUESTING PHYSICIANS: Hospitalist service REASON FOR CONSULTATION: Patient with known metastatic renal cell carcinoma. HISTORY OF PRESENT ILLNESS: Ms. Oden is known to us, as we have previously treated her for metastatic renal cell carcinoma. Most recently, she has been taken off the treatment due to poor performance status. We have just been monitoring her off of treatment. Per her family member's report, the patient was doing relatively okay until Tuesday, when she became nonresponsive. She was taken to the emergency department and found to be rather hypercarbic with a metabolic acidosis. This required her to be intubated. She has been in the ICU since that time. She is now extubated, but in general has poor health. We have been consulted due to her history of cancer, and to evaluate the patient. PAST MEDICAL HISTORY: 1. Renal cell carcinoma with bone metastasis. Her last treatment was Cabometyx, which was discontinued back in March 2018. Since that time, she has been on observation with continued Xgeva monthly. 2. COPD. 3. Bilateral pulmonary emboli. 4. Hypertension. PAST SURGICAL HISTORY: 1. Right nephrectomy. 2. Knee arthroscopy. SOCIAL HISTORY: Patient lives with her sister. She has a supportive family. She is a previous smoker but quit about 20 years ago. REVIEW OF SYSTEMS: Twelve-point review of systems has been completed and is negative except as expressed in the HPI. FAMILY HISTORY: Positive for dementia and uterine cancer as well as colon cancer in her parents. Also diabetes. PHYSICAL EXAMINATION: Vital Signs: Temperature 98.4, heart rate 81, respirations 14, blood pressure 169/83, O2 saturation 98% on 2 L nasal cannula. General: This is a female who really looks close to her baseline who is sitting in the hospital bed in the ICU in no acute distress. Head: Normocephalic, atraumatic. Eyes: Pupils equal, round, reactive. Ears, nose, and mouth: Oral mucosa appears to be normal. Cardiovascular: S1, S2 heard. Respiratory: Normal respiratory effort. Gastrointestinal.: Abdomen is soft with positive bowel sounds. Musculoskeletal: No obvious bony abnormalities. Extremities: Trace edema. Neurologic: The patient is alert and oriented. LAB STUDIES: The patient has not had a CT chest, abdomen and pelvis since being in the hospital. Her last one was as an outpatient in October 2018. Labs are overall stable in regard to CBC and CMP. ASSESSMENT: 1. Metastatic renal cell carcinoma. From our evaluation without doing a CT chest, abdomen and pelvis, the patient's disease is overall stable. Last time she was in, her disease was stable. Her performance status seems to have declined, though, since her last visit. They are discussing how the patient is practically bed bound, and it is extremely difficult for her to get to and from any location. We discussed goals of care and the fact that she is not a candidate for any sort of cancer treatments at this time. We have advised that hospice could be an option for her, especially given her other illnesses that she has. We do feel, though, at this time that her biggest concerns and major probable problem-causing issues are not her renal cell carcinoma. We discussed in detail hospice and services hospice can do. She does seem like she would be appropriate for hospice, but again for reasons other than her cancer at this time. The patient did initially agree to hospice, but then as we were leaving, she has changed her mind. Again, we will continue to follow along. She is not a candidate, though, for chemotherapy at this time. 2. Respiratory failure, likely secondary to chronic obstructive pulmonary disease. Continue current management per the primary team. 3. Atrial fibrillation with rapid ventricular rate. Cardiology is now on board. 4. Poor performance status. Again, this seems to have worsened since the last time she has been in our office. The hospital stay will not obviously improve this usually. Thank you for consulting us. We will continue follow along and adjust our treatment plan per hospital course. Dictated by ZAKIYA Estevez for Evelia Arora MD cc: Evelia Arora MD I have seen and examined the patient and the above note reflects my history, physical exam, assessment and plan. Evelia SUAREZ
[2019-03-09] MEDS ORDERED: MAGNESIUM SULFATE 2 GM/S.W.I. 2 GM/50 ML IVPB IV ONE (19:05)
--- NOTE | 2019-03-09 19:18 | CONSULTATION ---
DATE OF CONSULTATION: 03/09/2019 IMPRESSION: 1. Transient atrial fibrillation last night. The patient has spontaneously converted back to sinus rhythm. 2. Currently admitted after presenting with altered mental status, unresponsiveness and with acute hypercapnic hypoxemic respiratory failure. 3. Chronic obstructive pulmonary disease requiring chronic home oxygen. 4. Renal cell carcinoma with bone metastasis to right hip. 5. Hypertension. 6. Hyperlipidemia. RECOMMENDATIONS: 1. Continue to monitor on telemetry. 2. Echocardiography. HISTORY: This 78-year-old white female with past history of severe COPD, renal cell carcinoma with bone metastasis to the right hip, previous pulmonary emboli, hypertension and hyperlipidemia was admitted to the emergency room recently with unresponsiveness and hypercapnic hypoxemic respiratory failure. She required intubation due to severe hypercapnia and respiratory failure. She has since stabilized and has been extubated. Last night she developed atrial fibrillation, but has spontaneously converted back to sinus rhythm on this morning's ECG. She is not aware of any previous cardiac problems or arrhythmias. There have been no palpitations. PAST MEDICAL HISTORY: 1. COPD, requiring chronic home oxygen. 2. Previous pulmonary emboli in the past. 3. Renal cell carcinoma. The patient is status post right nephrectomy and has had bone metastasis to right hip. This has been treated with chemotherapy, but chemotherapy was discontinued about 6 months ago. 4. Hypertension. 5. Hyperlipidemia. PAST SURGICAL HISTORY: Also includes cataract surgery, left ankle fracture repair, and previous knee arthroscopic procedure. ALLERGIES: She has no known drug allergies. MEDICATIONS: Prior to admission as listed. SOCIAL HISTORY: She lives with her sister, who is primary caregiver. She has history of smoking in the past, but discontinued this in 1998 after smoking a pack a day for perhaps 15 years. She drinks alcohol on a social basis. FAMILY HISTORY: Negative for premature coronary disease. REVIEW OF SYSTEMS: Pulmonary: Noncontributory beyond history of present illness. Gastrointestinal: Noncontributory beyond history of present illness. Constitutional: Noncontributory beyond history of present illness. Remainder of review of systems negative/noncontributory beyond history of present illness, with 14 total systems reviewed. PHYSICAL EXAMINATION: Physical exam reveals an elderly white female in no distress. Blood pressure 157/67, heart rate 72 and regular, with ECG monitor showing sinus rhythm. Oxygen saturation 98% on nasal cannula oxygen at 2 L/min. HEENT exam: Extraocular movements appear intact. Mucous membranes are moist. Neck is supple, without jugular venous distention. There are no carotid bruits. Auscultation of the chest reveals coarse breath sounds bilaterally. Cardiac exam reveals a regular rate and rhythm without appreciable murmur or gallop. Abdomen is soft. Bowel sounds are normal. Extremities are without edema. Neurologic exam reveals her to be awake and responsive. Speech is fluent. She moves all 4 extremities equally well. DIAGNOSTIC DATA: Twelve-lead EKG today demonstrates sinus rhythm and is within normal limits. LABORATORY DATA: Includes white blood cell count of 6.08, hematocrit 34.9, hemoglobin 10.3, platelet count 202,000. Sodium 145, potassium 3.7, chloride 110, carbon dioxide 24, BUN 14, creatinine 0.8, glucose 70. cc: Stefano Saenz MD
[2019-03-09] MEDS: LEVAQUIN 250 MG in NS 50 ML IV SCH (22:31)
[2019-03-10 01:20] LABS: AGAP 9; ALBUMIN 2.7 g/dL (3.5-5.0); BUN 12 mg/dL (8-22); CHLORIDE 111 mmol/L (98-107); COSMO 291; CREATININE 0.7 mg/dL (0.5-0.9); ESTIMATED GFR > 60; GLUCOSE 103 mg/dL (70-104); MAGNESIUM 1.8 mg/dL (1.5-2.7); POTASSIUM 3.3 mmol/L (3.5-5.1); SODIUM 146 mmol/L (136-145); TCO2 26 mmol/L (25-35)
[2019-03-10 01:22] LABS: CALCIUM 6.7 mg/dL (8.8-10.2)
[2019-03-10] MEDS: DUONEB (A & A) INH SCH ×6 (03:35→23:31)
[2019-03-10 05:07] LABS: ALLEN TEST YES; BLOOD TYPE ARTERIAL; HCO3-(ACT) 25.7 mmoll (20.0-26.0); O2HB 96.3 % (95.0-99.0); PCO2(98.6) 42 mmHg (35-45); PO2(98.6) 180 mmHg (60-100); SAMPLE BLOOD; SAO2 98.6 % (95.0-100.0); THB 10.8 g/dL (11.5-17.4)
[2019-03-10 05:08] LABS: MODALITY CANNULA
[2019-03-10 07:02] LABS: BASO# 0.02 X1000 (0.0-0.2); BASO% 0.4 % (0.0-0.8); EOS# 0.26 X1000 (0.0-0.7); EOS% 5.5 % (0.0-10.0); HEMATOCRIT 36.4 % (37.0-47.0); HEMOGLOBIN 10.3 g/dL (12.0-16.0); LYMPH# 0.68 X1000 (1.2-3.4); LYMPH% 14.3 % (20.5-51.1); MCH 25.7 PG (27-31); MCHC 28.3 g/dL (33-37); MCV 90.8 FL (81-99); MONO# 0.47 X1000 (0.11-0.59); MONO% 9.9 % (1.7-9.3); MPV 10.7 FL (7.4-10.4); NEUT# 3.34 X1000 (1.4-6.5); NEUT% 69.9 % (42.2-75.2); PLT 214 X1000 (130-400); RBC 4.01 XMIL (4.2-5.4); RDW 16.4 % (11.5-14.5); WBC 4.77 X1000 (4.8-10.8)
[2019-03-10 07:15] LABS: ESTIMATED GFR > 60
[2019-03-10 07:24] LABS: AGAP 9; BUN 12 mg/dL (8-22); CHLORIDE 110 mmol/L (98-107); COSMO 286; CREATININE 0.8 mg/dL (0.5-0.9); GLUCOSE 80 mg/dL (70-104); PHOSPHORUS 2.4 mg/dL (2.7-4.5); POTASSIUM 3.6 mmol/L (3.5-5.1); SODIUM 144 mmol/L (136-145); TCO2 25 mmol/L (25-35)
[2019-03-10] MEDS: PEPCID IV SCH ×2 (09:27→21:44)
[2019-03-10] MEDS: ZOLOFT PO SCH (09:27)
[2019-03-10] MEDS: LOVENOX SUBQ SCH (09:27)
[2019-03-10] MEDS: SODIUM CHLORIDE 0.9% INJ SCH (09:27)
--- NOTE | 2019-03-10 10:32 | PROGRESS NOTE ---
DATE: 03/10/2019 SUBJECTIVE: This morning Ms. Oden refers to be doing well. Denies any concern. A niece was at the bedside with her at the time of the encounter. Ms Oden is pending a transfer to [facility] for the past 2 days. OBJECTIVE: Vital signs: Blood pressure is 141/65, pulse of 73, respiration is 21 and temperature 98.5 degrees. The patient is saturating 97% on 2 L of nasal cannula. General exam: Ms. Oden is a 78-year-old, elderly female. She is in bed in no distress. HEENT: Mucosa is pink and moist. Anicteric. Acyanotic. Neck: Supple. Chest: Good air entry bilateral. Did not hear any crackles or crepitations. No rhonchi. Cardiovascular: Regular rate and rhythm. There are no murmurs, no rubs, no gallops. GI/Abdomen: Soft, nontender. Bowel sounds present. There is no hepatosplenomegaly. Extremities: No pedal edema. Distal pulses present. [employer]: Patient is awake, alert, oriented x3. There is no focal deficit. Her power in the right lower extremity is slightly lower than the left, but it is from the pain to the hip from the malignancy. LABORATORY DATA: This morning WBC is 4.17, hemoglobin is 10.3, platelet count of 214. Chemistry is also reviewed unremarkable. So far blood cultures have been 48 hours negative. Sputum culture is showing normal thelma. IMAGING STUDIES: From yesterday, did show mild interval improvement. There was a questionable underlying infiltrate in the left base. CURRENT MEDICATIONS: Have all been reviewed. Patient continues to be on Levaquin 250 daily. Today is day 4 on that. ASSESSMENT: 1. Altered mental status on presentation presumably from CO2 narcosis. The patient's mentation improved. 2. Acute on chronic hypoxemic respiratory failure and acute hypercarbic respiratory failure. The patient was initially intubated for 2 days, has been successfully extubated for the past 2 days as well. She is currently on nasal cannula. Arterial blood gas this morning is within normal range. 3. Hyperkalemia on presentation, resolved. 4. History of chronic obstructive pulmonary disease. The patient used to be on home 2 oxygen, but not constant. Presented in mild exacerbation, improved. 5. Hypertension. The patient has been started back on her labetalol. 6. History of renal cell carcinoma status post right nephrectomy with metastasis to right iliac bone. The patient used to follow up with Dr. Arora, underwent adjuvant therapy for some time, but then became remarkably sick, so she decided not to do any more adjuvant therapy, and she has been fairly stable for the past 2 years. 7. Acute kidney injury, resolved. Bed-bound with poor performance status at home. The patient's sister and nieces have been her support system, and the sister is her healthcare provider. 8. Transient episode of atrial fibrillation with rapid ventricular response. The patient spontaneously converted back to sinus. Cardiology evaluated her. She is currently back on her labetalol. PLAN: So, in general, I think Ms. Oden is doing a lot better. She is now more alert, oriented. She follows commands. She is also tolerating her diet. We are going to discontinue the Fontenot catheter, and we will transfer her from the ICU to regular medical floor. The patient has been evaluated by [facility]. Family members at this point are debating and making a decision to let us know if they would eventually be discharged on hospice. cc: Naga Iverson MD
--- NOTE | 2019-03-10 10:53 | Diag Imaging Result Doc PS360 ---
EXAM: CHEST-PORTABLE INDICATION: short of breath TECHNIQUE: One view COMPARISON: 03/09/2019 FINDINGS: The small left pleural effusion with adjacent mild atelectasis and/or infiltrate is stable. Mild interstitial thickening suggesting edema is unchanged. No new consolidation is identified. Cardiac silhouette is stable. IMPRESSION: Stable chest. Electronically signed by Nestor Rogers 03/10/2019 10:50 AM
--- NOTE | 2019-03-10 11:21 | PROVIDER PROGRESS NOTE ---
Progress Note Dr. Moreira Progress Note/Pulmonary and or critical care We appreciated progress of care, Complications, change in diagnosis, and instructions to patient. Subjective: We note the level of consciousness, bed (chair) position, family presence (if any), level of lethargy, feeling of symptoms, and changes from baseline condition/symptom. The patient is lying in bed with no acute distress noted. She states she is feeling better. She is on NC 2 L at this time and tolerates well. She did not use BiPAP last night, but apparently slept on the couch per patients family. Her pCO2 is WNL this am. She denies any pain or frequent cough. She has no fever overnight. Objective: Vital Signs: We reviewed EMR current values for Pulse rate, Blood pressure, Pulse rate, respiratory rate and Pulse oximetry. Also noted other values and trends if present (e.g. I/O, CVP). 98.5 (No fever in last 24 hours), SC 68, RR 19, BP 162/77 and SaO2 98 on NC 2 L. I/O -180 ml Physical Examination: General: Lying in bed with no acute distress noted. HEENT: Normocephalic. Atraumatic. Mucus pink and moist. Chest: Even and unlabored. Symmetrical excursion. Diminished breathing sounds bilaterally with mild rhonchi bilaterally. CVS: Regular rate and rhythm with S1 and S2 appreciated. Abdomen: Soft. Non-distended. Normoactive bowel sounds in all 4 quadrants noted. Extremities: BLE pitting edema 1+. No cyanosis. No clubbing. Very frgil skin with skin tears on BUE. Neuro: A/O x3. Answer simple questions. Follow simple commands. Labs and Radiology: Reviewed available labs and radiology values available at time of EMR review. Laboratory Results 03/09/19 03/09/19 03/10/19 04:30 23:59 04:15 WBC RBC Hgb Hct MCV MCH MCHC RDW Std Deviation Plt Count MPV Immature Gran % (Auto) Neut % (Auto) Lymph % (Auto) [place] % (Auto) Eos % (Auto) Baso % (Auto) Immature Gran # (Auto) Neut # (Auto) Lymph # (Auto) [place] # (Auto) Eos # (Auto) Baso # (Auto) Specimen Type Sample Site pH pCO2 pO2 HCO3 Base Excess Oxyhemoglobin ABG O2 Sat (Calculated) ABG O2 Saturation ABG Carboxyhemoglobin ABG Methemoglobin Talon Test A-a O2 Difference Total Hemoglobin Lactate Liter Flow Blood Gas Modality FiO2 % Sodium 145 146 H 144 Potassium 3.7 D 3.3 L 3.6 Chloride 110 H 111 H 110 H Carbon Dioxide 24 L 26 25 Anion Gap 11 9 9 BUN 14 12 12 Creatinine 0.8 0.7 0.8 Estimated GFR/1.73 m2 > 60 > 60 > 60 BUN/Creatinine Ratio 18 17 15 Glucose 70 103 80 Calculated Osmolality 288 291 286 Calcium 6.8 L* 6.7 L* 7.0 L* Phosphorus 2.7 2.4 L Magnesium 1.3 L 1.8 2.0 Albumin 2.7 L 03/10/19 03/10/19 04:15 04:56 WBC 4.77 L RBC 4.01 L Hgb 10.3 L Hct 36.4 L MCV 90.8 MCH 25.7 L MCHC 28.3 L RDW Std Deviation 16.4 H Plt Count 214 MPV 10.7 H Immature Gran % (Auto) 0.0 Neut % (Auto) 69.9 Lymph % (Auto) 14.3 L [place] % (Auto) 9.9 H Eos % (Auto) 5.5 Baso % (Auto) 0.4 Immature Gran # (Auto) 0.00 Neut # (Auto) 3.34 Lymph # (Auto) 0.68 L [place] # (Auto) 0.47 Eos # (Auto) 0.26 Baso # (Auto) 0.02 Specimen Type ARTERIAL Sample Site R RADIAL pH 7.40 pCO2 42 pO2 180 H HCO3 25.7 Base Excess 1.0 Oxyhemoglobin 96.3 ABG O2 Sat (Calculated) 15.0 ABG O2 Saturation 98.6 ABG Carboxyhemoglobin 1.30 ABG Methemoglobin 1.0 Talon Test YES A-a O2 Difference -33.0 Total Hemoglobin 10.8 L Lactate 0.80 Liter Flow 2.0 Blood Gas Modality [place] FiO2 % 28.0 Sodium Potassium Chloride Carbon Dioxide Anion Gap BUN Creatinine Estimated GFR/1.73 m2 BUN/Creatinine Ratio Glucose Calculated Osmolality Calcium Phosphorus Magnesium Albumin Assessment: Acute respiratory failure, hypercapnic and hypoxemic. Intubated on 03/05/19; extubated on 03/07/19. Improved. Encephalopathy at presentation, likely secondary to hypercapnia. Improved. LLL atelectasis vs. infiltrate. Stable COPD in mild exacerbation. Hyperkalemia. Resolved. LUCINDA. Resolved. 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 S/P right nephrectomy and some chemotherapy. Plan: Continue current treatment and supportive care per admitting and other teams on the case. Antibiotic (Levaquin) and bronchodilators. Appropriate DVT and GI prophylaxis Supplemental oxygen titrated to Patients needs per clinical protocols. Educate on the importance of BiPAP and encourage to use it at bedtime. Encourage incentive spirometer use, deep breathing and cough. Discuss patient's condition and care plans with family at the bedside and all questions have been answered. Input was appreciated from Admitting MD and other teams on the case. Evaluation time in minutes: 33 minutes.
[2019-03-10] MEDS ORDERED: TRANDATE PO SCH (13:00)
--- NOTE | 2019-03-10 14:37 | ECHO REPORT ---
ORDER DATE: 03/09/2019 INDICATION: Atrial fibrillation. FINDINGS: 1. The right atrium appears normal in size. 2. Mild tricuspid regurgitation. RV systolic pressure of 46. 3. Normal RV size and systolic function. 4. No significant pulmonic insufficiency. 5. Mild left atrial enlargement with a dimension of 4.4 cm. 6. No mitral valve prolapse. Mild mitral regurgitation. No clear evidence of mitral stenosis. 7. Normal LV size, end-diastolic dimension of 4.7 cm. Normal wall thicknesses with a posterior and interventricular septal wall thickness of 0.9 and 1.0 cm respectively. Normal LV systolic function. Estimated EF of 60% to 65% with normal wall motion. 8. Aortic valve appears thickened. There is a peak gradient across the valve of 27 with a mean of 13. The valve area of 1.7 cm2 by the continuity equation. This would suggest mild aortic stenosis. No insufficiency. 9. Aorta appears normal in visualized segments. 10. No pericardial effusion seen. 11. From the appearance of the mitral valve Doppler, the patient appears to be in sinus rhythm. 12. Normal IVC size. cc: MD Stefano Daugherty MD
[2019-03-10] MEDS: TRANDATE PO SCH (17:11)
[2019-03-10] MEDS: LEVAQUIN 250 MG in NS 50 ML IV SCH (21:45)
[2019-03-11] MEDS: DUONEB (A & A) INH SCH ×2 (03:40→07:42)
[2019-03-11 04:36] LABS: ALLEN TEST YES; BE 1.6 mmoll (-3.0-3.0); BLOOD TYPE ARTERIAL; HCO3-(ACT) 26.2 mmoll (20.0-26.0); METHB 0.9 % (0.0-1.5); O2(CT) 14.5 mL/dL (15.0-23.0); O2HB 95.5 % (95.0-99.0); PO2(98.6) 100 mmHg (60-100); SAMPLE BLOOD; SAO2 97.7 % (95.0-100.0); SRATE 4 BPM; THB 10.7 g/dL (11.5-17.4); pH(98.6) 7.31 (7.35-7.45)
[2019-03-11 04:38] LABS: MODALITY BI PAP; PCO2(98.6) 57 mmHg (35-45)
[2019-03-11] MEDS: LOVENOX SUBQ SCH (07:59)
[2019-03-11] MEDS: SODIUM CHLORIDE 0.9% INJ SCH (08:00)
[2019-03-11] MEDS: PEPCID IV SCH (08:00)
[2019-03-11] MEDS: TRANDATE PO SCH (08:00)
[2019-03-11] MEDS: ZOLOFT PO SCH (08:00)
--- NOTE | 2019-03-11 09:26 | DISCHARGE SUMMARY ---
ADMISSION DATE: 03/05/2019 DISCHARGE DATE: 03/11/2019 DISPOSITION: Home. FOLLOWUP: 1. Dr. Roman. 2. Dr. Moreira. CONSULTATIONS DURING THIS ADMISSION: 1. Pulmonary medicine was consulted. Patient was seen by Dr. Moreira. 2. Hematology/oncology was consulted. Patient was seen by Dr. Arora. 3. Cardiology was consulted. Patient was seen by Dr. Saenz. INVASIVE PROCEDURES DONE DURING THIS ADMISSION: None. IMAGING STUDIES OF SIGNIFICANCE: 1. Chest x-ray did show cardiomegaly. 2. A CT scan of the head showed bilateral chronic sphenoid sinusitis. No evidence of acute intracranial disease. 3. Multiple repeat chest x-rays were done. 4. Echocardiogram did show an ejection fraction of 60 to 65 percent with normal wall motion, normal IVC size. Valves were unremarkable. ADMISSION DIAGNOSES: 1. Acute hypercarbic respiratory failure. 2. Metabolic encephalopathy. 3. Hyperkalemia. 4. Chronic obstructive pulmonary disease. 5. Renal cell carcinoma, status post right nephrectomy. DIAGNOSES AT THE TIME OF DISCHARGE: 1. Altered mental status on presentation secondary to carbon dioxide narcosis, resolved. 2. Acute on chronic hypoxemic respiratory failure and acute hypercarbic respiratory failure, improved. The patient was intubated for about 2 days, was successfully extubated, and has been 3 days post extubation, saturating well. 3. Hyperkalemia on presentation, resolved. 4. History of chronic obstructive pulmonary disease. The patient is on home oxygen. 5. Uncontrolled hypertension. 6. History of renal cell carcinoma, status post right nephrectomy, with metastasis to right iliac bone. 7. Acute kidney injury, resolved. 8. Transient episode of atrial fibrillation with rapid ventricular response that spontaneously converted back to sinus. 9. Bedbound with poor performance status at home. DISCHARGE MEDICATIONS: 1. Labetalol 100 mg 3 times per day. 2. Zoloft 25 mg p.o. daily. 3. Losartan mg p.o. daily. 4. Levofloxacin 500 p.o. daily. PRESENTING COMPLAINT: Unresponsiveness. HISTORY OF PRESENTING COMPLAINT: Ms. Oden is a 78-year-old, female who presented to the emergency room after the family found that she was not responsive. Per the family, she uses O2 intermittently at home when needed. She became progressively less responsive on the morning of the admission. They tried hard to get her to be awake. She would barely open her eyes and go back to sleep. Upon presenting to the emergency room, she was found to have an O2 saturation of 70%. ABGs which were done in the ER revealed a pCO2 of 114. Ms. Oden was intubated and admitted to the critical care unit. HOSPITAL COURSE: Ms. Oden was in the critical care unit, was started on broad-spectrum IV antibiotics. Pulmonary medicine was consulted. She was progressively weaned off the ventilator and was successfully extubated. She did well after the extubation. She was transitioned to [facility] and ultimately to the floor. Unfortunately, there was no PCP or floor bed so Ms. Oden did spend most all day stay in the critical care unit. This morning, she refers to be doing a lot better. The sister, who is her healthcare provider, was at the bedside at the time of the encounter. Ms. Oden is alert, is oriented, and shows no signs of respiratory issues. We think she is stable for discharge. She is going to be following up with Dr. Moreira. We think that Ms. Oden does have obstructive sleep apnea and she has been advised to do sleep studies and be treated accordingly. Her blood pressure had been slightly elevated during the hospital course. She was started back on her beta rose marie and we have also added losartan to help achieve a better blood pressure control. During the hospital course, Ms. Oden did go into a transient episode of atrial fibrillation with RVR, which spontaneously got converted. She was evaluated by cardiology. This morning, her vitals, blood pressure is 171/91, pulse of 71, respirations are 22, temperature is 98.8 degrees, the patient is saturating 99-97% on 2 L. We think she is stable enough for discharge. All the discharge instructions were discussed with her and the sister who was at the bedside. Both voiced understanding. TIME SPENT: The time spent for discharge is 38 minutes. cc: MD Clive Toledo MD Malcolm R. Hendricks, MD
--- NOTE | 2019-03-11 09:32 | PROVIDER PROGRESS NOTE ---
Progress Note Dr. Moreira Progress Note/Pulmonary and or critical care We appreciated progress of care, Complications, change in diagnosis, and instructions to patient. Subjective: We note the level of consciousness, bed (chair) position, family presence (if any), level of lethargy, feeling of symptoms, and changes from baseline condition/symptom. The patient is sitting in bed and having her breakfast. She states she is feeling better. She is on NC 1.5 L at this time and tolerates well. She tried BiPAP last night once, but really could not tolerate it. She states she is feeling great and ready to go home. Objective: Vital Signs: We reviewed EMR current values for Pulse rate, Blood pressure, Pulse rate, respiratory rate and Pulse oximetry. Also noted other values and trends if present (e.g. I/O, CVP). 98.8 (No fever in last 24 hours), VA 71, RR 22, BP 171/91 and SaO2 99 on NC 2 L. I/O -410 ml Physical Examination: General: Lying in bed with no acute distress noted. HEENT: Normocephalic. Atraumatic. Mucus pink and moist. Chest: Even and unlabored. Symmetrical excursion. Diminished breathing sounds bilaterally. CVS: Regular rate and rhythm with S1 and S2 appreciated. Abdomen: Soft. Non-distended. Normoactive bowel sounds in all 4 quadrants noted. Extremities: BLE pitting edema 1+. No cyanosis. No clubbing. Very frgil skin with skin tears on BUE. Neuro: A/O x3. Answer simple questions. Follow simple commands. Labs and Radiology: Reviewed available labs and radiology values available at time of EMR review. Laboratory Results 03/11/19 04:26 Specimen Type ARTERIAL Sample Site R RADIAL pH 7.31 L pCO2 57 H* pO2 100 HCO3 26.2 H Base Excess 1.6 Oxyhemoglobin 95.5 ABG O2 Sat (Calculated) 14.5 L ABG O2 Saturation 97.7 ABG Carboxyhemoglobin 1.40 ABG Methemoglobin 0.9 Talon Test YES A-a O2 Difference 43.0 Total Hemoglobin 10.7 L Lactate 0.60 Blood Gas Modality BI PAP Spontaneous Rate 4 FiO2 % 30.0 Inspiratory BiPAP 12.0 Expiratory BiPAP 8.0 Assessment: Acute respiratory failure, hypercapnic and hypoxemic. Intubated on 03/05/19; extubated on 03/07/19. Improved. Encephalopathy at presentation, likely secondary to hypercapnia. Improved. LLL atelectasis vs. infiltrate. COPD in mild exacerbation. Resolved. Hyperkalemia. Resolved. LUCINDA. Resolved. 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 S/P right nephrectomy and some chemotherapy. Plan: Continue current treatment and supportive care per admitting and other teams on the case. Antibiotic (Levaquin) and bronchodilators. Appropriate DVT and GI prophylaxis Supplemental oxygen titrated to Patients needs per clinical protocols. Encourage incentive spirometer use, deep breathing and cough. Outpatient sleep study and cupola tender followup. Input was appreciated from Admitting MD and other teams on the case. Evaluation time in minutes: 34 minutes.
[2019-03-11 10:04] VITALS: BP 112/65
== END 2019-03-11 09:50 | disposition home or self-care (01) | DRG 208 ==
LOC: ED 19:13 → SUATTDRO 23:39 → ICU 23:39
PROVIDERS: ATTEND Internal Medicine

== ENCOUNTER 2019-05-23 07:14 | Inpatient (IN) ==
[2019-05-23] MEDS ORDERED: NS 1,000 ML IV ONE (07:50)
[2019-05-23] MEDS ORDERED: LASIX IV ONE ×2 (07:51→17:26)
--- NOTE | 2019-05-23 08:14 | EKG Report ---
Test Performed on : 05/23/2019 07:37:23 AM Test Reason : AMS Blood Pressure : / mmHG Vent. Rate : 071 BPM Atrial Rate : 071 BPM P-R Int : 000 ms QRS Dur : 076 ms QT Int : 382 ms P-R-T Axes : 000 052 067 degrees QTc Int : 415 ms Accelerated Junctional rhythm. with occasional premature ventricular complexes. Abnormal ECG When compared with ECG of 09-MAR-2019 07:01, Junctional rhythm. has replaced Sinus rhythm. Nonspecific T wave abnormality no longer evident in Inferior leads Nonspecific T wave abnormality no longer evident in Lateral leads Unconfirmed Result
[2019-05-23 08:18] LABS: ALLEN TEST YES; BE -3.4 mmoll (-3.0-3.0); BLOOD TYPE ARTERIAL; HCO3-(ACT) 22.2 mmoll (20.0-26.0); METHB 0.7 % (0.0-1.5); O2(CT) 14.8 mL/dL (15.0-23.0); O2HB 94.3 % (95.0-99.0); PO2(98.6) 77 mmHg (60-100); SAMPLE BLOOD; THB 11.1 g/dL (11.5-17.4)
[2019-05-23 08:19] LABS: MODALITY CANNULA
--- NOTE | 2019-05-23 08:19 | Diag Imaging Result Doc PS360 ---
EXAM: CHEST-PORTABLE 05/23/2019 HISTORY: AMS TECHNIQUE: AP portable upright at 0808 COMMENT: The heart size is slightly enlarged and the pulmonary vascularity is increased. The lungs appear to be essentially clear and better expanded than on the previous study of 03/10/2019. IMPRESSION: Mild cardiomegaly. Electronically signed by Liam Willson 05/23/2019 8:17 AM
[2019-05-23 08:22] LABS: PCO2(98.6) 79 mmHg (35-45); pH(98.6) 7.14 (7.35-7.45)
--- NOTE | 2019-05-23 08:47 | Diag Imaging Result Doc PS360 ---
EXAM: CT HEAD W/O CONTRAST 05/23/2019 HISTORY: altered mental status TECHNIQUE: This exam was performed using automated exposure control, adjustment of mA or kV according to patient size, and/or use of iterative reconstruction technique. COMMENT: The current study is compared with 03/05/2019. There is some motion artifact. There is no evidence of mass effect bleed or abnormal extra-axial fluid collection. There are a few patchy areas of decreased attenuation in the subcortical white matter of both hemispheres. Compared to the previous examination there has been no appreciable change. The calvarium is intact. There is mucosal thickening in both sphenoid sinuses which was also the case previously, and fact this has improved since the previous examination. IMPRESSION: Improved bilateral sphenoid sinusitis. Chronic microvascular white matter changes. Electronically signed by Liam Willson 05/23/2019 8:45 AM
[2019-05-23 08:59] LABS: BASO# 0.03 X1000 (0.0-0.2); BASO% 0.5 % (0.0-0.8); EOS# 0.09 X1000 (0.0-0.7); EOS% 1.4 % (0.0-10.0); HEMATOCRIT 41.5 % (37.0-47.0); HEMOGLOBIN 11.2 g/dL (12.0-16.0); IMM GRAN# 0.02 X1000 (0.0-0.04); IMM GRAN% 0.3 % (0.0-0.5); INR 1.04; LYMPH# 1.13 X1000 (1.2-3.4); LYMPH% 17.9 % (20.5-51.1); MCH 25.2 PG (27-31); MCV 93.3 FL (81-99); MONO# 0.38 X1000 (0.11-0.59); MPV 9.9 FL (7.4-10.4); NEUT# 4.67 X1000 (1.4-6.5); NEUT% 73.9 % (42.2-75.2); PLT 205 X1000 (130-400); PROTIME 13.8 Seconds (11.0-16.0); RBC 4.45 XMIL (4.2-5.4); RDW 15.7 % (11.5-14.5); WBC 6.32 X1000 (4.8-10.8)
[2019-05-23 09:00] LABS: PTT 30.5 Seconds (22.3-41.8)
--- NOTE | 2019-05-23 09:00 | PROVIDER DOCUMENTATION ---
HPI-Neurological Disorder - General Chief Complaint: Weakness Stated Complaint: weakness Time Seen by Provider: 05/23/19 07:38 Source: patient, EMS Allergies/Adverse Reactions: Patient Allergies Allergy/AdvReac Type Severity Reaction Status Date / Time No Known Allergies Allergy Verified 03/05/19 23:32 Home Medications: Home Medication List Medication Instructions Recorded Confirmed Last Taken Type Labetalol [Trandate] 100 mg PO TID 11/08/16 03/05/19 02/07/17 21:00 History Sertraline [Zoloft] 25 mg PO DAILY 08/01/17 03/05/19 Unknown History Levofloxacin 500 mg PO DAILY #5 tab 03/11/19 Unknown Rx Losartan [Cozaar] 50 mg PO DAILY #120 tab 03/11/19 Unknown Rx - History of Present Illness-Neuro Nature of Presenting Problem: 78yo female brought by EMS for AMS, tremors gradually worsening over the last 2- 3 days at home. SOme chills as well. Patient is on home o2 for COPD, and EMS reports sats 84% on 2L by NC at home. Denies cough/bodyaches. Patient answers questions appropriately and follows commands, but falls asleep quickly in ED. Headache Location: reports: other (no pain) Severity: reports: mild Onset/Duration: reports: 3 days ago Timing: reports: still present, intermittent, getting worse Context: reports: none Character of Altered Mental Status: reports: disoriented, trouble concentrating, decreased responsiveness Any recent trauma/injury?: reports: none Character of Deficits: reports: new weakness (generalized), decreased ability to walk New weakness or altered sensation location:: reports: general (diffuse) Cognitive Baseline: alert, oriented x3 Gait Baseline: walks without assistance Associated Symptoms: reports: short of breath, decreased ability to walk or stand Similar Symptoms Previously?: Yes Recently seen or treated by another doctor?: No (last admitted) Review of Systems - Adult - REVIEW OF SYSTEMS - ADULT ROS:: limited per condition Constitutional: reports: see HPI, chills. denies: fever, night sweats Eyes: reports: no symptoms reported Ears, Nose, Mouth & Throat: reports: no symptoms reported Cardiovascular: reports: no symptoms reported Respiratory: reports: no symptoms reported Gastrointestinal: reports: no symptoms reported Genitourinary: reports: no symptoms reported Musculoskeletal: reports: no symptoms reported Integumentary: reports: no symptoms reported Neurological: reports: see HPI, tremors. denies: ataxia, dizziness/vertigo, headache/migraines, loss of balance, paresthesia, slurred speech, syncope Psychiatric: reports: no symptoms reported Endocrine: reports: no symptoms reported Hematologic/Lymphatic: reports: no symptoms reported Allergic/Immunologic: reports: no symptoms reported All Other Systems: Reviewed and Negative Past History - Adult - PAST MEDICAL HISTORY-ADULT Review of Records: reports: Old Records Reviewed, Nursing Assessment Review, Medications Reviewed, Social history reviewed & non-contributory. Major Childhood Illnesses: reports: denies history Cardiovascular: reports: blood clots, HTN, hyperlipidemia Respiratory: reports: COPD Gastrointestinal: reports: denies history Obstetrical/Gynecological: reports: denies history Genitourinary: reports: cancer (kidney with mets to the bone), kidney disease, other (renal mass) Musculoskeletal: reports: denies history Neurological: reports: denies history Psychiatric: reports: denies history Endocrine/Immune: reports: denies history Other Conditions: reports: cataract/glaucoma - PRIOR SURGERIES/PROCEDURES Surgical/Procedure History: reports: reviewed, not pertinent, other (cataract removal, nephrectomy) - IMMUNIZATION STATUS Childhood Immunizations: See Nurse Assessment Flu Vaccine: See Nurse Assessment - FAMILY HISTORY Family History: reviewed, not pertinent - SOCIAL HISTORY Smoking: quit greater than 1 year Substance Use: none/never Living Situation: family Physical Exam- Neurological - Physical Exam-Neuro Initial Vital Signs Reviewed: Yes (VSSAF) General Appearance: appears well, no apparent distress, lethargic, slow to respond Eye Exam: bilateral eye: normal inspection, PERRL, EOMI HENMT: normocephalic/atraumatic, moist mucous membranes, normal ENT inspection Head Injury: no evidence of injury, active bleeding Neck: non-tender, full range of motion, supple, normal inspection Respiratory: chest non-tender, no pleuratic chest pain, no respiratory distress, no accessory muscle use, rhonchi, wheezing Cardiovascular: normal peripheral pulses, regular rate, rhythm, no JVD, systolic murmur, gallop/S3. negative: no edema, no gallop, no murmur Abdominal Exam: non tender, soft, no organomegaly, no pulsatile mass Lymphatic: no adenopathy Peripheral Pulses: radial (R): 2+, radial (L): 2+ Extremity: normal range of motion, non-tender, no calf tenderness, normal capillary refill, pedal edema. 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 negative: normal gait (not tested) Motor/Sensory: no motor deficit, no sensory deficit, no pronator drift Neurologic: education faculty member II-XII nml as tested, grossly normal, no motor/sensory deficits Integumentary: normal color, normal turgor, warm/dry Psych/Mental Status: normal mood/affect, normal thought content, normal thought process. negative: oriented x 3 (name and year and place, not date or day of week or month) - Glascow Coma Scale Best Eye Response: (4) open spontaneously Best Verbal Response: (4) confused conversation Best Motor Response: (6) obeys commands Total Glascow Score: 14 Progress - PLAN OF CARE/RESULTS Progress/Plan/Lab Results: Vital Signs - 8 hr 05/23/19 07:25 05/23/19 07:38 05/23/19 09:01 Temperature 98 F Pulse Rate 69 64 58 L Respiratory Rate 19 25 H 20 Blood Pressure 189/72 166/76 O2 Sat by Pulse Oximetry 94 L 95 99 05/23/19 09:24 Temperature Pulse Rate Respiratory Rate Blood Pressure O2 Sat by Pulse Oximetry 98 05/23/19 08:07 Influenza Screen - Final Nasopharyngeal Laboratory Results - last 24 hr 05/23/19 05/23/19 05/23/19 07:42 08:07 08:07 WBC RBC Hgb Hct MCV MCH MCHC RDW Std Deviation Plt Count MPV Immature Gran % (Auto) Neut % (Auto) Lymph % (Auto) Treasure % (Auto) Eos % (Auto) Baso % (Auto) Immature Gran # (Auto) Neut # (Auto) Lymph # (Auto) Treasure # (Auto) Eos # (Auto) Baso # (Auto) PT INR PTT (Actin FS) Specimen Type Sample Site pH pCO2 pO2 HCO3 Base Excess Oxyhemoglobin ABG O2 Sat (Calculated) ABG O2 Saturation ABG Carboxyhemoglobin ABG Methemoglobin Talon Test A-a O2 Difference Total Hemoglobin Lactate Liter Flow Blood Gas Modality FiO2 % Sodium 140 Potassium 6.9 H* Chloride 108 H Carbon Dioxide 23 L Anion Gap 9 BUN 28 H Creatinine 1.0 H Estimated GFR/1.73 m2 54 BUN/Creatinine Ratio 28 Glucose 88 POC Glucose 74 Calculated Osmolality 284 Calcium 8.8 Total Bilirubin 0.21 AST 12 ALT 11 Alkaline Phosphatase 90 Creatine Kinase 22 L Troponin T High Sens [id number]-[id number] Pept 2393 H Total Protein 6.4 Albumin 3.7 Globulin 2.7 Albumin/Globulin Ratio 1.4 Plasma Lactate 05/23/19 05/23/19 05/23/19 08:07 08:07 08:07 WBC 6.32 RBC 4.45 Hgb 11.2 L Hct 41.5 MCV 93.3 MCH 25.2 L MCHC 27.0 L RDW Std Deviation 15.7 H Plt Count 205 MPV 9.9 Immature Gran % (Auto) 0.3 Neut % (Auto) 73.9 Lymph % (Auto) 17.9 L Treasure % (Auto) 6.0 Eos % (Auto) 1.4 Baso % (Auto) 0.5 Immature Gran # (Auto) 0.02 Neut # (Auto) 4.67 Lymph # (Auto) 1.13 L Treasure # (Auto) 0.38 Eos # (Auto) 0.09 Baso # (Auto) 0.03 PT 13.8 INR 1.04 PTT (Actin FS) 30.5 Specimen Type Sample Site pH pCO2 pO2 HCO3 Base Excess Oxyhemoglobin ABG O2 Sat (Calculated) ABG O2 Saturation ABG Carboxyhemoglobin ABG Methemoglobin Talon Test A-a O2 Difference Total Hemoglobin Lactate Liter Flow Blood Gas Modality FiO2 % Sodium Potassium Chloride Carbon Dioxide Anion Gap BUN Creatinine Estimated GFR/1.73 m2 BUN/Creatinine Ratio Glucose POC Glucose Calculated Osmolality Calcium Total Bilirubin AST ALT Alkaline Phosphatase Creatine Kinase Troponin T High Sens 32 H Phv-T-Ugyxmulffup Pept Total Protein Albumin Globulin Albumin/Globulin Ratio Plasma Lactate 05/23/19 05/23/19 08:07 08:10 WBC RBC Hgb Hct MCV MCH MCHC RDW Std Deviation Plt Count MPV Immature Gran % (Auto) Neut % (Auto) Lymph % (Auto) Treasure % (Auto) Eos % (Auto) Baso % (Auto) Immature Gran # (Auto) Neut # (Auto) Lymph # (Auto) Treasure # (Auto) Eos # (Auto) Baso # (Auto) PT INR PTT (Actin FS) Specimen Type ARTERIAL Sample Site R RADIAL pH 7.14 L* pCO2 79 H* pO2 77 HCO3 22.2 Base Excess -3.4 L Oxyhemoglobin 94.3 L ABG O2 Sat (Calculated) 14.8 L ABG O2 Saturation 96.0 ABG Carboxyhemoglobin 1.10 ABG Methemoglobin 0.7 Talon Test YES A-a O2 Difference 52.0 Total Hemoglobin 11.1 L Lactate 0.40 L Liter Flow 3.0 Blood Gas Modality CANNULA FiO2 % 32.0 Sodium Potassium Chloride Carbon Dioxide Anion Gap BUN Creatinine Estimated GFR/1.73 m2 BUN/Creatinine Ratio Glucose POC Glucose Calculated Osmolality Calcium Total Bilirubin AST ALT Alkaline Phosphatase Creatine Kinase Troponin T High Sens Mde-T-Cvkolpidtcx Pept Total Protein Albumin Globulin Albumin/Globulin Ratio Plasma Lactate 0.4 L Orders Category Date Time Status Cardiac Monitoring DIRECTED Care 05/23/19 07:50 Active NEWS Score 2-4:Order NEWS Lactate Series NOW Care 05/23/19 07:37 Active Oxygen Therapy- ED Nursing DIRECTED Care 05/23/19 07:50 Active Saline Loc NOW Care 05/23/19 07:50 Active CHEST-PORTABLE [RAD] Stat Exams 05/23/19 07:[address] HEAD W/O CONTRAST [CT] Stat Exams 05/23/19 07:50 Completed ABG [RESP] Routine Lab 05/23/19 08:10 Completed BLOOD CULTURE [BLDCUL] Stat Lab 05/23/19 08:07 Results CBC WITH ELECTRONIC DIFF [HEME] Stat Lab 05/23/19 08:07 Completed CK PROFILE [SP CHEM] Stat Lab 05/23/19 08:07 Completed COMPREHENSIVE METABOLIC PANEL [CHEM] Stat Lab 05/23/19 08:07 Completed DIRECT STREP Stat Lab 05/23/19 07:49 Ordered INFLUENZA SCREEN A/B Stat Lab 05/23/19 08:07 Completed LACTATE, PLASMA [CHEM] Lab 05/23/19 10:45 Uncollected LACTATE, PLASMA [CHEM] Lab 05/23/19 13:45 Uncollected LACTATE, PLASMA [CHEM] Q3H Lab 05/23/19 08:07 Completed MISCELLANEOUS TEST-LAB [RF] Stat Lab 05/23/19 08:40 Uncollected PRO B-NATRIURETIC PEPTIDE Stat Lab 05/23/19 08:07 Completed PROTIME WITH INR [COAG] Stat Lab 05/23/19 08:07 Completed PTT [COAG] Stat Lab 05/23/19 08:07 Completed TROPONIN T HIGH SENSITIVITY Stat Lab 05/23/19 08:07 Completed 0.9% Sodium Chloride Inj [Ns] 1,000 ml Med 05/23/19 07:50 Discontinued IV 999 mls/hr Albuterol 2.5MG/Ipratrop 0.5MG [Duoneb (A & A)] Med 05/23/19 09:08 Discontinued 3 ml INH NOW ONE Albuterol [Albuterol Neb] Med 05/23/19 09:35 Discontinued 2.5 mg INH NOW ONE Dextrose 50% Syringe [D50w Syringe] Med 05/23/19 09:35 Discontinued 50 ml IV NOW ONE Furosemide [Lasix] Med 05/23/19 07:51 Discontinued 80 mg IV NOW ONE Insulin Human Regular [Humulin R] Med 05/23/19 09:35 Discontinued 5 unit IV NOW ONE Sodium Bicarbonate 8.4% Med 05/23/19 09:35 Discontinued 50 meq IV NOW ONE Sodium Polystyrene [Kayexalate] Med 05/23/19 09:35 Discontinued 30 gm PO NOW ONE Aerosol Treatments Routine Ot 05/23/19 09:08 Active Aerosol Treatments Routine Ot 05/23/19 09:37 Active Aerosol Treatments Stat Ot 05/23/19 09:08 Active Aerosol Treatments Stat Ot 05/23/19 09:37 Active BIPAP Stat Ot 05/23/19 08:40 Active BIPAP Stat Ot 05/23/19 09:25 Active CP/SOB/Palp >45 yrs of Age Stat Ot 05/23/19 07:50 Ordered EKG [EKG] Stat Ther 05/23/19 07:50 Draft Result Diagrams: 05/23/19 08:07 05/23/19 08:07 - REASSESSMENT Reassessment #1 Time Reassessed: 09:07 Status: improving (Patietn placed on bipap for respiratory acidosis with hypercarbia, will need admission. Given also Duoneb treatment and lasix.) Reassessment #2 Time Reassessed: 09:40 Status: improving (Given IV lasix/sodium bicarb, dextrose/insulin, albuterol for hyperkalemia, and kayexalate.) - EKG 1 Time of EKG reading by physician:: 07:40 EKG Read and Signed by:: Derrell Winkler EKG Interpretation (*Must complete 3 of following elements*): Abnormal Rate: 71 Rhythm: NSR [place]: normal QRS: Q Waves present (V1/V2), poor R wave progression ST Wave: non-specific ST changes - XRAY 1 XRAY Study: Chest Impression: Abnormal, See EMR Report ( EXAM: CHEST-PORTABLE 05/23/2019 HISTORY: AMS TECHNIQUE: AP portable upright at 0808 COMMENT: The heart size is slightly enlarged and the pulmonary vascularity is increased. The lungs appear to be essentially clear and better expanded than on the previous study of 03/10/2019. IMPRESSION: Mild cardiomegaly. Electronically signed by Liam Willson 05/23/2019 8:17 AM 05/23/19 0817 Interpreting Physician: Liam Willson MD Dictated Date/Time: 05/23/19 0816 cc: Derrell Winkler MD; Chidi Roman MD) Comparison with other Films: changes noted - CT/MRI 1 CT Study: Head Impression: Abnormal, See EMR Report Comparison with other Films: changes noted (EXAM: CT HEAD W/O CONTRAST 05/23/2019 HISTORY: altered mental status TECHNIQUE: This exam was performed using automated exposure control, adjustment of mA or kV according to patient size, and/or use of iterative reconstruction technique. COMMENT: The current study is compared with 03/05/2019. There is some motion artifact. There is no evidence of mass effect bleed or abnormal extra-axial fluid collection. There are a few patchy areas of decreased attenuation in the subcortical white matter of both hemispheres. Compared to the previous examination there has been no appreciable change. The calvarium is intact. There is mucosal thickening in both sphenoid sinuses which was also the case previously, and fact this has improved since the previous examination. IMPRESSION: Improved bilateral sphenoid sinusitis. Chronic microvascular white matter changes. Electronically signed by Liam Willson 05/23/2019 8:45 AM 05/23/19 0845 Interpreting Physician: Liam Willson MD Dictated Date/Time: 05/23/19 0843 cc: Derrell Winkler MD; Chidi Roman MD) - CONSULTS/PCP/HOSPITALIST Notification #1 *Consult/PCP/Hospitalist*: MARCELINA Loya Time Discussed: 09:41 Consult Disposition: Will see in ED, Admit Departure - Departure Date of Disposition Decision: 05/23/19 Time of Disposition Decision: 09:40 DIAGNOSIS: COPD with exacerbation, Acute hyperkalemia Respiratory failure with hypercapnia Qualifiers: Chronicity: acute on chronic Qualified Code(s): J96.22 - Acute and chronic respiratory failure with hypercapnia Acute exacerbation of CHF (congestive heart failure) Qualifiers: Heart failure type: combined systolic and diastolic Qualified Code(s): I50.43 - Acute on chronic combined systolic (congestive) and diastolic (congestive) heart failure Disposition: ADMITTED INPATIENT 09 Certified Medical Emergency: Emergent Condition: Critical Referrals and Follow-Ups: Chidi Roman MD [Primary Care Provider] - - Critical Care Note This patient required my direct & personal management of CC.: Yes Total Time (mins): 45 Critical Care Statement: This patient required my direct personal management to treat or rule out processes, the absence of which, could potentiallly result in sudden, clinically significant life or limb threatening deterioration. Attestation - Physician/ JOSE Attestation Patient care was provided by Advanced Practice Provider:: No The physician spent face to face time with patient:: Yes Advanced Practice Provider documentation review:: Supervising physician onsite and consulted in the evaluation and care of this patient. The physician did have a face to face encounter with the patient.
[2019-05-23] MEDS ORDERED: DUONEB (A & A) INH ONE (09:08)
[2019-05-23 09:32] LABS: ALB/GLOB RATIO 1.4; ALBUMIN 3.7 g/dL (3.5-5.0); CALCIUM 8.8 mg/dL (8.8-10.2); TOTAL BILIRUBIN 0.21 mg/dL (0.20-1.00); TOTAL PROTEIN 6.4 g/dL (6.3-8.3)
[2019-05-23 09:35] LABS: POTASSIUM 6.9 mmol/L (3.5-5.1)
[2019-05-23] MEDS ORDERED: D50W SYRINGE IV ONE (09:35)
[2019-05-23] MEDS ORDERED: SODIUM BICARBONATE 8.4% IV ONE (09:35)
[2019-05-23] MEDS ORDERED: KAYEXALATE PO ONE (09:35)
[2019-05-23] MEDS ORDERED: HUMULIN R IV ONE (09:35)
[2019-05-23] MEDS ORDERED: ALBUTEROL NEB INH ONE (09:35)
[2019-05-23] MEDS ORDERED: ZOFRAN IV PRN (14:01)
[2019-05-23 14:17] LABS: ALLEN TEST YES; BE 0.2 mmoll (-3.0-3.0); BLOOD TYPE ARTERIAL; HCO3-(ACT) 25.1 mmoll (20.0-26.0); METHB 0.3 % (0.0-1.5); O2(CT) 15.9 mL/dL (15.0-23.0); O2HB 97.1 % (95.0-99.0); PO2(98.6) 149 mmHg (60-100); SAMPLE BLOOD; SAO2 98.6 % (95.0-100.0); THB 11.4 g/dL (11.5-17.4)
[2019-05-23 14:18] LABS: MODALITY BI PAP
[2019-05-23 14:19] LABS: pH(98.6) 7.15 (7.35-7.45)
[2019-05-23 14:20] LABS: PCO2(98.6) 89 mmHg (35-45)
[2019-05-23] MEDS ORDERED: AMIDATE IV ONE (14:39)
[2019-05-23] MEDS ORDERED: ZEMURON IV ONE (14:39)
[2019-05-23] MEDS ORDERED: ZEMURON ONE (14:54)
[2019-05-23] MEDS ORDERED: AMIDATE ONE (14:54)
[2019-05-23] MEDS: DIPRIVAN 1% 1,000 MG/100 ML BOTTLE IV SCH ×3 (15:10→23:09)
[2019-05-23] MEDS ORDERED: LABETALOL IV ONE (15:28)
--- NOTE | 2019-05-23 15:48 | Diag Imaging Result Doc PS360 ---
EXAM: CHEST-PORTABLE HISTORY: ETT placement NG tube TECHNIQUE: Single view COMPARISON: 8:08 AM FINDINGS: An endotracheal tube has been placed. This is in good position approximately 4 to 5 cm above the jia. There is a nasogastric tube overlying the upper esophagus. This does not extend into the mid and distal esophagus and does not enter the stomach. This report was discussed with the patient's ER nurse on 05/23/2019 at 3:40 PM and was readback. Electronically signed by Neri Gage 05/23/2019 3:46 PM
[2019-05-23] MEDS ORDERED: CALCIUM GLUCONATE IV PUSH ONE (15:56)
[2019-05-23] MEDS ORDERED: SODIUM CHLORIDE 0.9% INJ SCH (16:00)
[2019-05-23 16:16] LABS: ALLEN TEST YES; BE 1.3 mmoll (-3.0-3.0); BLOOD TYPE ARTERIAL; HCO3-(ACT) 25.9 mmoll (20.0-26.0); METHB 0.7 % (0.0-1.5); O2(CT) 16.5 mL/dL (15.0-23.0); O2HB 97.2 % (95.0-99.0); PO2(98.6) 306 mmHg (60-100); SAMPLE BLOOD; SAO2 98.6 % (95.0-100.0); SRATE 20 BPM; THB 11.5 g/dL (11.5-17.4); TVOL 400 mL
[2019-05-23 16:18] LABS: MODALITY VENTILATOR; PCO2(98.6) 85 mmHg (35-45); pH(98.6) 7.18 (7.35-7.45)
--- NOTE | 2019-05-23 16:50 | Diag Imaging Result Doc PS360 ---
EXAM: CHEST/ABD TUBE PLACEMENT 05/23/2019 HISTORY: tube placement. TECHNIQUE: AP supine at 1629 COMMENT: There is an NG tube with its tip in the stomach. There is a right pleural effusion and atelectasis or pneumonia in the right base. IMPRESSION: NG tube in the stomach. Electronically signed by Liam Willson 05/23/2019 4:48 PM
[2019-05-23] MEDS ORDERED: LASIX IV SCH (17:15)
[2019-05-23] MEDS: MAXIPIME 1 GM in NS 50 ML IV SCH (17:18)
[2019-05-23 18:06] LABS: ALLEN TEST YES; BE 2.6 mmoll (-3.0-3.0); BLOOD TYPE ARTERIAL; HCO3-(ACT) 26.9 mmoll (20.0-26.0); O2(CT) 14.8 mL/dL (15.0-23.0); O2HB 95.1 % (95.0-99.0); PO2(98.6) 74 mmHg (60-100); SAMPLE BLOOD; SRATE 10 BPM; TVOL 700 mL; pH(98.6) 7.33 (7.35-7.45)
[2019-05-23 18:11] LABS: MODALITY VENTILATOR; PCO2(98.6) 56 mmHg (35-45)
[2019-05-23 18:27] LABS: ALB/GLOB RATIO 1.1; ALBUMIN 3.4 g/dL (3.5-5.0); CALCIUM 8.9 mg/dL (8.8-10.2); TOTAL BILIRUBIN 0.35 mg/dL (0.20-1.00); TOTAL PROTEIN 6.4 g/dL (6.3-8.3)
--- NOTE | 2019-05-23 18:31 | HISTORY AND PHYSICAL ---
CHIEF COMPLAINT: Altered mental status. 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 She has been followed on an outpatient basis by Dr. Evelia Arora. She presented to the emergency room via EMS after being called by the patient's sister, who is her caregiver. The patient was found with O2 saturation of 84% on EMS arrival that was on 2 L nasal cannula. The family stated that the patient had been disoriented for a couple of days but that prior to coming to the emergency room, she had a large increase in lethargy, was not answering questions nor following commands, prompting their call to 911. On arrival to the emergency room, patient was slow to respond. She was initially placed on 2 L nasal cannula for saturations that were 94 to 95 percent sats with respirations. The patient began to decline. ABGs were drawn which revealed a pH of 7.1 with a pCO2 of 79, PO2 of 77. She was placed on BiPAP at 50% initially, and she seemed to be more responsive. She did take BiPAP off at intervals but would allow the staff to replace it. Labs revealed a potassium of 6.9, which was treated in the emergency room with followup labs ordered. PAST MEDICAL HISTORY: 1. Renal cell carcinoma with metastasis to the hip, status post nephrectomy, unresponsive to chemotherapy therefore was stopped by Dr. Arora approximately 9 months ago. 2. COPD on home O2. 3. Hypertension. 4. History of bilateral pulmonary embolus. PAST SURGICAL HISTORY: Right nephrectomy, knee arthroscopy. SOCIAL HISTORY: She lives with her sister, who is her caregiver. She has never , had no children. She is retired from government work. She quit smoking about 20 years ago and she does drink alcohol on a social basis. ALLERGIES: No known drug allergies. HOME MEDICATIONS: A list will be obtained. REVIEW OF SYSTEMS: Unable to be obtained with the patient due to the patient's mental status and no family members being present. PHYSICAL EXAMINATION: GENERAL: This is a 78-year-old female who is sitting up on the stretcher in the emergency room on BiPAP. Blood pressure is 166/76 with a heart rate of 58, respirations are 20, temperature is 98 degrees with O2 saturations that are 99% on BiPAP at 50%. EYES: Pupils equal, round, react to light. HEENT: Head is normocephalic, atraumatic. Mucous membranes are moist. NECK: Supple. Trachea midline. CARDIOVASCULAR: Regular rate and rhythm. S1 and S2 are appreciated. She does have a 1/6 systolic murmur. PULMONARY: Rhonchi and wheezing are scattered throughout. Chest rises and falls symmetric with respiration. GASTROINTESTINAL: Abdomen is soft, nondistended, with bowel sounds in all 4 quadrants. EXTREMITIES: She has bilateral lower extremity edema from just below the knees down. Pulses are palpable x4 extremities. SKIN: Warm and dry. LABS: WBC is 6.3 with hemoglobin 11.2, hematocrit 41.5, and platelets of 205,000. INR is 1.04. Sodium 140, potassium 6.9, BUN 28, creatinine 1 with a glucose of 88. ProBNP is 2393 with a troponin of 32. Blood cultures are pending. Influenza A and B are negative. Group A strep is negative. Throat culture is pending. Chest x-ray is revealed mild cardiomegaly. Lungs are essentially clear. ASSESSMENT AND PLAN: 1. Acute hypoxemic hypercapnic respiratory failure. 2. Chronic obstructive pulmonary disease with acute exacerbation. 3. Acute hyperkalemia. 4. Plan: We will continue with BiPAP and trend ABGs daily. 5. Altered mental status, metabolic encephalopathy, very likely due to hypercarbia. She does not have a white count. Chest x-ray does not show any pneumonia. We will continue BiPAP and trend the gases as stated above. 6. Hyperkalemia. She was treated in the emergency room. We will order a stat BMP for followup. We will trend labs and replete or treat as appropriate. 7. History of renal cell carcinoma status post right nephrectomy with metastasis to the right hip in a patient who was taken off chemotherapy approximately [address] Arora. Aware. 8. Will consult Dr. Lyles, Pulmonology. Check a CBC, a CMP, ABGs in the morning. 9. Sputum specimen. 10. Chest x-ray daily. 11. We will give DuoNeb q.4 hours and q.2 hours p.r.n. 12. Further treatments pending hospital course. Dictated by MARCELINA Lucero for Misty Daniesl MD cc: MARCELINA Lucero MD
--- NOTE | 2019-05-23 18:36 | PULMONOLOGY CONSULTATION ---
DATE: 05/23/2019 HISTORY OF PRESENT ILLNESS: Ms. Oden is a 78-year-old female with metastatic renal cell carcinoma, severe COPD, who was admitted and intubated at the end of February with altered mental status and hypercapnia. The patient was evaluated by Oncology. She has not been on treatment since March 2018 due to a poor performance status. Hospice was discussed during that admission but it is not clear that she ever elected hospice services. She was brought to the emergency room this morning with altered mental status with acute on chronic hypoxemic respiratory failure. She would follow simple commands. She may have had some chills, but without cough or body aches. The patient's status declined in the emergency room and she was intubated and initiated on mechanical ventilation. PAST MEDICAL HISTORY: 1. Renal cell carcinoma with bony metastasis. 2. Status post right nephrectomy. 3. Chronic obstructive pulmonary disease. 4. Pulmonary emboli. 5. Hypertension. 6. Chronic hypoxemic respiratory failure. 7. Chronic hypercapnic respiratory failure. SOCIAL HISTORY: Prior tobacco use, but none for the last 20 years. No alcohol use listed. Her sister is her primary caregiver and power of marketing mgr. REVIEW OF SYSTEMS: Cannot be obtained. FAMILY HISTORY: Positive for uterine cancer, colon cancer, diabetes, and dementia. PHYSICAL EXAMINATION: General: A frail, chronically ill-appearing female who has just been brought into the ICU. Vital signs: Blood pressure 141/75, heart rate 63, respiratory rate 23, oxygen saturation 100% on mechanical ventilation. HEENT: Pupils are equal. Oropharynx appears clear. Neck: Supple. Chest: Reveals diminished breath sounds bilaterally with prolonged expiratory phase. No wheezing. No rhonchi. Cardiac: Regular rate, normal S1, normal S2. Abdomen: Soft. Extremities: Without significant edema. LABORATORIES: White blood count 6.32, hemoglobin 11.0, platelet count 205,000. Sodium 140, potassium 6.9, chloride 108, bicarbonate 23, BUN 28, creatinine 1.0. ProBNP 2393. Arterial blood gas prior to intubation: PH 7.15, pCO2 of 89, pO2 of 149. Chest x-ray reveals cardiomegaly with vascular congestion. IMPRESSION: A 78-year-old with: 1. End-stage chronic obstructive pulmonary disease. 2. Metastatic renal cell carcinoma. 3. Acute hypoxemic respiratory failure on the background of chronic hypoxemic respiratory failure. 4. Acute on chronic hypercapnic respiratory failure. 5. Acute cor pulmonale. RECOMMENDATIONS: 1. Initiate diuretic trial. 2. Continue full ventilatory support. Will wean oxygen as tolerated. 3. Routine gastric acid suppression. 4. Agree with broad-spectrum antibiotics. 5. Recommend palliative care evaluation. She has end-stage chronic obstructive pulmonary disease in addition to her metastatic renal cancer. Her prognosis is extremely poor and she will likely have ongoing respiratory failure events. 6. Anticipate weaning for possible extubation tomorrow. Unfortunately, I believe the longer that she remains on the ventilator, the harder it will be to wean and extubate her. Time spent in critical care management: 35 minutes cc: Thomas Lyles MD MTDD
[2019-05-23] MEDS: DUONEB (A & A) INH SCH ×3 (19:01→23:35)
[2019-05-23] MEDS ORDERED: VANCOMYCIN IV PER PHARMACY MISC SCH (19:45)
[2019-05-23] MEDS ORDERED: VANCOMYCIN 1,750 MG in NS 250 ML IV ONE (21:00)
[2019-05-24] MEDS ORDERED: LASIX IV ONE (02:00)
[2019-05-24] MEDS: DUONEB (A & A) INH SCH ×4 (03:35→15:30)
[2019-05-24 04:56] LABS: ALLEN TEST YES; BE 4.8 mmoll (-3.0-3.0); BLOOD TYPE ARTERIAL; HCO3-(ACT) 28.7 mmoll (20.0-26.0); METHB 0.4 % (0.0-1.5); O2(CT) 16.2 mL/dL (15.0-23.0); O2HB 96.9 % (95.0-99.0); PCO2(98.6) 36 mmHg (35-45); PO2(98.6) 138 mmHg (60-100); SAMPLE BLOOD; SAO2 99.8 % (95.0-100.0); SRATE 10 BPM; THB 11.7 g/dL (11.5-17.4); TVOL 700 mL
[2019-05-24 04:57] LABS: MODALITY VENTILATOR
[2019-05-24] MEDS: MAXIPIME 1 GM in NS 50 ML IV SCH ×2 (04:57→15:36)
[2019-05-24] MEDS: DIPRIVAN 1% 1,000 MG/100 ML BOTTLE IV SCH ×2 (04:57→08:00)
[2019-05-24 06:04] LABS: BASO# 0.02 X1000 (0.0-0.2); BASO% 0.2 % (0.0-0.8); EOS% 0.9 % (0.0-10.0); HEMATOCRIT 39.9 % (37.0-47.0); HEMOGLOBIN 11.2 g/dL (12.0-16.0); IMM GRAN# 0.02 X1000 (0.0-0.04); IMM GRAN% 0.2 % (0.0-0.5); LYMPH# 0.86 X1000 (1.2-3.4); LYMPH% 7.8 % (20.5-51.1); MCH 25.4 PG (27-31); MCHC 28.1 g/dL (33-37); MCV 90.5 FL (81-99); MONO# 0.81 X1000 (0.11-0.59); MONO% 7.3 % (1.7-9.3); MPV 11.1 FL (7.4-10.4); NEUT# 9.22 X1000 (1.4-6.5); NEUT% 83.6 % (42.2-75.2); PLT 236 X1000 (130-400); RBC 4.41 XMIL (4.2-5.4); RDW 15.5 % (11.5-14.5); WBC 11.03 X1000 (4.8-10.8)
[2019-05-24 06:20] LABS: LYMPHS 9 % (21-51); MONO 4 % (1-9); SEGS 87 % (42-75)
--- NOTE | 2019-05-24 06:21 | Diag Imaging Result Doc PS360 ---
EXAM: CHEST-PORTABLE 05/24/2019 HISTORY: copd TECHNIQUE: AP portable at 0354 COMMENT: There is an endotracheal tube with its tip at thoracic inlet. There is an NG tube which passes below the diaphragm. There are some ill-defined patchy opacities over the lung bases which were also present on 05/23/2019. IMPRESSION: Mild pulmonary edema versus pneumonia. Electronically signed by Liam Willson 05/24/2019 6:19 AM
[2019-05-24 06:25] LABS: POTASSIUM 4.1 mmol/L (3.5-5.1)
[2019-05-24 06:26] LABS: ALB/GLOB RATIO 0.9; ALBUMIN 3.2 g/dL (3.5-5.0); CALCIUM 8.7 mg/dL (8.8-10.2); CREATININE 1.2 mg/dL (0.5-0.9); MAGNESIUM 1.5 mg/dL (1.5-2.7); TOTAL BILIRUBIN 0.44 mg/dL (0.20-1.00); TOTAL PROTEIN 6.9 g/dL (6.3-8.3)
[2019-05-24] MEDS ORDERED: MAGNESIUM SULFATE 2 GM/S.W.I. 2 GM/50 ML IVPB IV ONE (06:30)
[2019-05-24] MEDS: PROTONIX IV SCH (07:08)
[2019-05-24 11:03] LABS: ALLEN TEST NO; BE 3.4 mmoll (-3.0-3.0); BLOOD TYPE ARTERIAL; HCO3-(ACT) 27.6 mmoll (20.0-26.0); METHB 0.8 % (0.0-1.5); O2(CT) 16.7 mL/dL (15.0-23.0); O2HB 95.9 % (95.0-99.0); PCO2(98.6) 48 mmHg (35-45); PO2(98.6) 97 mmHg (60-100); SAMPLE BLOOD; SAO2 97.5 % (95.0-100.0); THB 12.3 g/dL (11.5-17.4); pH(98.6) 7.39 (7.35-7.45)
[2019-05-24 11:08] LABS: MODALITY VENTILATOR
--- NOTE | 2019-05-24 11:14 | PROGRESS NOTE ---
DATE: 05/24/2019 SUBJECTIVE: The patient is currently on a weaning trial. She is very anxious and fidgety. OBJECTIVE: Vital Signs: Temperature 97 degrees, blood pressure 106/56, heart rate 67, respirations 14, and O2 saturations 100% on the mechanical ventilator. Intake 650, and output 1.2 L. General: This is a chronically ill-appearing elderly female currently on the ventilator. Heart: S1, S2 normal. Regular rate and rhythm. Lungs: Diminished breath sounds bilaterally. Abdomen: Positive bowel sounds. Soft, nontender, and nondistended. Extremities: Trace pedal edema. Neurologic: The patient is awake and alert, and able to follow commands. LABORATORY: White blood cell count 11, hemoglobin 11, hematocrit 39, and platelets 236,000. Sodium 142, potassium 4.1, chloride 102, CO2 28, BUN 29, creatinine 1.2, glucose 102, and magnesium 1.5. AST 16, ALT 15, and alkaline phosphatase 89. Chest x-ray shows mild pulmonary edema versus pneumonia. ASSESSMENT AND PLAN: 1. Acute on chronic hypercapnic and hypoxemic respiratory failure. Likely secondary to end-stage chronic obstructive pulmonary disease. The patient is currently undergoing a weaning trial. Further management as per the monitoring specialist. 2. Metastatic renal cell carcinoma. Aware. 3. Cor pulmonale. Aware. 4. Hypertension. Stable. 5. Mild pulmonary edema. Continue to monitor closely. The patient is scheduled to get Lasix today. 6. End stage chronic obstructive pulmonary disease. Aware. Continue with bronchodilator therapy. 7. Gastrointestinal prophylaxis. Continue on Protonix. 8. Deep vein thrombosis prophylaxis. Continue on Lovenox. 9. Disposition. Palliative Care has been consulted to discuss goals of care with the patient and her family. The patient is negative for the COVID 19. cc: Misty Daniels MD [facility]
[2019-05-24] MEDS ORDERED: LABETALOL IV PRN (12:10)
[2019-05-24] MEDS: LOVENOX SUBQ SCH (12:30)
[2019-05-24] MEDS ORDERED: VENTOLIN HFA INH PRN (17:33)
[2019-05-24] MEDS: LASIX IV SCH (18:34)
[2019-05-24] MEDS ORDERED: LASIX ONE (18:36)
--- NOTE | 2019-05-24 19:22 | PULMONOLOGY PROGRESS NOTE ---
DATE: 05/24/2019 SUBJECTIVE: The patient is sedated, but on mechanical ventilation. OBJECTIVE: vital signs: Blood pressure 147/80, heart rate 69, respiratory rate 15, oxygen saturation 96%. HEENT: Pupils are equal. Oropharynx appears clear, but dry. neck: Neck is supple. pulmonary: Chest reveals crackles bilaterally. Cardiac: S1-S2. abdomen: Abdomen is soft. Extremities: Extremities reveal 1+ peripheral edema. LABORATORIES AND DATA: Chest x-ray reveals bibasilar edema which is unchanged. Sputum cultures are pending. Sodium 142, potassium 4.1, chloride 102, bicarb 28, BUN 29, creatinine 1.2. Arterial blood gas: pH 7.50, pCO2 of 36, pO2 of 138. IMPRESSION: A 78-year-old with: 1. End-stage chronic obstructive pulmonary disease. 2. Metastatic renal cell carcinoma. 3. Acute hypoxemic respiratory failure. 4. Chronic hypoxemic respiratory failure. 5. Acute on chronic hypercapnic respiratory failure. 6. Acute cor pulmonale. DISCUSSION: A 78-year-old with problems outlined above. Clinically, she appears to be improving. I do believe she is ready for a spontaneous breathing trial. PLAN: 1. Initiate spontaneous breathing trial. 2. Attempt to continue a negative fluid balance. 3. Continue broad-spectrum antibiotics. 4. Palliative care evaluation. This is in progress. Time spent and crit for care management: 35 minutes cc: Thomas Lyles MD [facility]
[2019-05-24 19:55] LABS: URINE SOURCE CATH
[2019-05-24 19:59] LABS: BILIRUBIN URINE NEGATIVE (NEGATIVE); BLOOD URINE NEGATIVE (NEGATIVE); COLOR STRAW; GLUCOSE URINE NEGATIVE (NEGATIVE); KETONE URINE NEGATIVE (NEGATIVE); LEUKOCYTES URINE LARGE (NEGATIVE); NITRITE URINE NEGATIVE (NEGATIVE); PROTEIN URINE NEGATIVE (NEGATIVE); SP GRAVITY URINE 1.009; TURBIDITY URINE HAZY (CLEAR); UROBILINOGEN URINE NORMAL (NORMAL)
[2019-05-24 20:02] LABS: UR EPITHELIAL CELLS <10 /HPF (<10); URINE BACTERIA NEGATIVE /HPF; URINE RBC <10 /HPF (<10); URINE WBC 20-40 /HPF (<10)
[2019-05-24 20:13] LABS: URINE CASTS NONE SEEN; URINE CRYSTALS NONE SEEN; URINE SMALL ROUND CELLS NONE SEEN; URINE YEAST NONE SEEN
[2019-05-25] MEDS: LASIX IV SCH ×2 (00:10→10:03)
[2019-05-25] MEDS ORDERED: BLISTEX MEDICATED BERRY LIP BALM TOP PRN (04:01)
[2019-05-25] MEDS: MAXIPIME 1 GM in NS 50 ML IV SCH ×2 (05:06→17:43)
[2019-05-25 05:07] LABS: ALLEN TEST YES; BLOOD TYPE ARTERIAL; HCO3-(ACT) 29.6 mmoll (20.0-26.0); PO2(98.6) 88 mmHg (60-100); SAMPLE BLOOD; pH(98.6) 7.37 (7.35-7.45)
[2019-05-25 05:21] LABS: PCO2(98.6) 57 mmHg (35-45)
[2019-05-25 05:22] LABS: MODALITY CANNULA
[2019-05-25 05:40] LABS: BASO# 0.06 X1000 (0.0-0.2); BASO% 0.5 % (0.0-0.8); EOS# 0.24 X1000 (0.0-0.7); EOS% 2.1 % (0.0-10.0); HEMATOCRIT 42.2 % (37.0-47.0); HEMOGLOBIN 11.9 g/dL (12.0-16.0); IMM GRAN# 0.02 X1000 (0.0-0.04); IMM GRAN% 0.2 % (0.0-0.5); LYMPH# 0.92 X1000 (1.2-3.4); LYMPH% 8.1 % (20.5-51.1); MCH 25.3 PG (27-31); MCHC 28.2 g/dL (33-37); MCV 89.6 FL (81-99); MONO# 0.92 X1000 (0.11-0.59); MONO% 8.1 % (1.7-9.3); MPV 10.6 FL (7.4-10.4); NEUT# 9.18 X1000 (1.4-6.5); PLT 258 X1000 (130-400); RBC 4.71 XMIL (4.2-5.4); RDW 15.9 % (11.5-14.5); WBC 11.34 X1000 (4.8-10.8)
[2019-05-25 05:46] LABS: ALB/GLOB RATIO 0.9; ALBUMIN 3.5 g/dL (3.5-5.0); CALCIUM 8.6 mg/dL (8.8-10.2); CREATININE 1.3 mg/dL (0.5-0.9); POTASSIUM 3.5 mmol/L (3.5-5.1); TOTAL BILIRUBIN 0.56 mg/dL (0.20-1.00); TOTAL PROTEIN 7.6 g/dL (6.3-8.3)
[2019-05-25] MEDS: PROTONIX IV SCH (06:21)
[2019-05-25] MEDS: D5W 1,000 ML IV SCH ×2 (07:11→22:28)
--- NOTE | 2019-05-25 07:14 | Diag Imaging Result Doc PS360 ---
CHEST-PORTABLE - 05/25/2019 INDICATION: copd COMPARISON: 05/24/2019 FINDINGS: The endotracheal tube is no longer visible. Stable nasogastric tube in good position. There is some faint infiltrate in the right upper lobe. Overall the bilateral infiltrates have significantly improved. Heart size remains top normal. IMPRESSION: Endotracheal tube no longer present. Significant improvement in the bibasilar infiltrates. Electronically signed by Basilio Frias 05/25/2019 7:12 AM
[2019-05-25] MEDS ORDERED: VANCOMYCIN IV PER PHARMACY MISC SCH (07:15)
[2019-05-25] MEDS ORDERED: VANCOMYCIN 1,550 MG in NS 250 ML IV SCH (09:00)
[2019-05-25] MEDS: LOVENOX SUBQ SCH (10:03)
--- NOTE | 2019-05-25 17:58 | PROVIDER PROGRESS NOTE ---
Progress Note Dr. Moreira Progress Note/Pulmonary and or critical care Subjective: Patient was extubated yesterday. She is on NC 4L at this time and tolerates well. She states she is feeling very well. She appears confused at times during my encounter. She reports no cough, but during my enconter, she has occasional productive cough noted. She apparently has CPAP therapy at home, but she states she doesn't want BiPAP therapy in the hospital. Input was appreciated from Dr. Hamilton and other teams on the case. Objective: Vital Signs: No fever in last 24 hours, SD 70, RR 13, BP 132/56 and SaO2 95% on NC 4L. I/O:-2080 ml. Physical Examination: General: Chronically ill appearing. Lying in bed with no acute distress noted. HEENT: Atraumatic. Normocephalic. Trachea midline. Mucosa pink and moist. PERRL. Oropharynx clear. Respiratory: Even and unlabored. Symmetrical excursion. Diminished breathing sounds bilaterally with expiratory wheezing bilaterally. Cardiovascular: S1 and S2 appreciated. Gastrointestinal: Soft. Nontender. Normoactive bowel sounds in all 4 quadrants. Extremities: BLE trace edema. No clubbing or cyanosis noted. Neurologic: Awake and alert. Answer simple questions. Follow simple commands. Labs and Radiology: Laboratory Results 05/23/19 05/25/19 05/25/19 19:48 04:45 04:45 WBC 11.34 H RBC 4.71 Hgb 11.9 L Hct 42.2 MCV 89.6 MCH 25.3 L MCHC 28.2 L RDW Std Deviation 15.9 H Plt Count 258 MPV 10.6 H Immature Gran % (Auto) 0.2 Neut % (Auto) 81.0 H Lymph % (Auto) 8.1 L [place] % (Auto) 8.1 Eos % (Auto) 2.1 Baso % (Auto) 0.5 Immature Gran # (Auto) 0.02 Neut # (Auto) 9.18 H Lymph # (Auto) 0.92 L [place] # (Auto) 0.92 H Eos # (Auto) 0.24 Baso # (Auto) 0.06 Specimen Type Sample Site pH pCO2 pO2 HCO3 Base Excess Talon Test A-a O2 Difference Lactate Liter Flow Blood Gas Modality FiO2 % Sodium 147 H Potassium 3.5 Chloride 100 Carbon Dioxide 30 Anion Gap 17 BUN 35 H Creatinine 1.3 H Estimated GFR/1.73 m2 40 BUN/Creatinine Ratio 27 Glucose 114 H Calculated Osmolality 301 Calcium 8.6 L Total Bilirubin 0.56 AST 15 ALT 12 Alkaline Phosphatase 95 Ulc-H-Puoisycsovq Pept Total Protein 7.6 Albumin 3.5 Globulin 4.1 Albumin/Globulin Ratio 0.9 Urine Source CATH Urine Color STRAW Urine Turbidity HAZY Urine pH 6.0 Ur Specific Darling 1.009 Urine Protein NEGATIVE Ur Glucose (Stick) NEGATIVE Ur Ketones (Stick) NEGATIVE Urine Blood NEGATIVE Urine Nitrite NEGATIVE Urine Bilirubin NEGATIVE Urobilinogen Dipstick NORMAL Urine Leukocytes LARGE A Urine WBC (Auto) 20-40 A Urine RBC (Auto) <10 U Epithel Cells (Auto) <10 Urine Bacteria (Auto) NEGATIVE Urine Crystals NONE SEEN Small Round Cells NONE SEEN Urine Casts NONE SEEN Urine Yeast-like Cells NONE SEEN 05/25/19 05/25/19 04:57 07:27 WBC RBC Hgb Hct MCV MCH MCHC RDW Std Deviation Plt Count MPV Immature Gran % (Auto) Neut % (Auto) Lymph % (Auto) [place] % (Auto) Eos % (Auto) Baso % (Auto) Immature Gran # (Auto) Neut # (Auto) Lymph # (Auto) [place] # (Auto) Eos # (Auto) Baso # (Auto) Specimen Type ARTERIAL Sample Site R RADIAL pH 7.37 pCO2 57 H* pO2 88 HCO3 29.6 H Base Excess 6.0 H Talon Test YES A-a O2 Difference 40.0 Lactate 1.10 Liter Flow 2.0 Blood Gas Modality CANNULA FiO2 % 28.0 Sodium Potassium Chloride Carbon Dioxide Anion Gap BUN Creatinine Estimated GFR/1.73 m2 BUN/Creatinine Ratio Glucose Calculated Osmolality Calcium Total Bilirubin AST ALT Alkaline Phosphatase Jud-T-Lyffcpihjss Pept 2501 H Total Protein Albumin Globulin Albumin/Globulin Ratio Urine Source Urine Color Urine Turbidity Urine pH Ur Specific Darling Urine Protein Ur Glucose (Stick) Ur Ketones (Stick) Urine Blood Urine Nitrite Urine Bilirubin Urobilinogen Dipstick Urine Leukocytes Urine WBC (Auto) Urine RBC (Auto) U Epithel Cells (Auto) Urine Bacteria (Auto) Urine Crystals Small Round Cells Urine Casts Urine Yeast-like Cells Assessment: Acute on chronic hypoxemic hypercapnic respiratory failure. Intubated between 05/23/19 to 05/24/19. Mild pulmonary edema vs. pneumonia. CXR this morning shows significant improvement in the bibasilar infiltrates. End-stage COPD. Acute cor pulmonale. Metastatic renal cell carcinoma. DNR 2. Plan: Continue supplemental oxygen. We titrated oxygen to patients needs per clinical protocols. We will monitor patients response closely and adjust accordingly. We follow up ABG. Continue antibiotics including Cefepime and Vancomycin. We will monitor patients clinical and lab response closely. Continue bronchodilators to promote pulmonary hygiene. Continue diuresis as tolerated. Continue GI and DVT prophylaxis. We start BiPAP at bedtime. We discuss the importance of BiPAP therapy with patient. Patient shows understand and states she will try her best. All questions have been answered. Swallow evaluation negative. Start regular foods with thin liquids. Critical care time in minutes: 34.
--- NOTE | 2019-05-25 18:14 | PROGRESS NOTE ---
DATE: 05/25/2019 SUBJECTIVE: The patient is awake and alert. She ate her breakfast. She states that she feels a lot better today. She is currently on nasal cannula. She was extubated yesterday. OBJECTIVE: Vital Signs: Temperature 97.6 degrees, blood pressure 128/50, heart rate 66, respirations 23, O2 saturation 95% on 3 L nasal cannula, intake 1 L, output 500. General: This is a chronically ill-appearing elderly female sitting up in bed in no acute distress. Heart: S1, S2 normal. Regular rate and rhythm. Lungs: Equal air entry bilaterally. No wheezing. No rales. Abdomen: Positive bowel sounds. Soft, nontender, nondistended. Extremities: No edema, no cyanosis. Neurologic: The patient is alert and oriented x3. LABORATORY DATA: White blood cell count 11, hemoglobin 11, hematocrit 42, platelets 258,000, sodium 147, potassium 3.5, chloride 100, CO2 30, BUN 35, creatinine 1.3, glucose 114, calcium 8.6. ProBNP 2501. IMAGING: Chest x-ray shows improvement in the bibasilar infiltrates. Blood cultures are growing gram-positive cocci. ASSESSMENT AND PLAN: 1. Acute on chronic hypercapnic and hypoxemic respiratory failure status post extubation. The patient is doing much better today. We will continue with nasal cannula during the day and BIPAP at night. 2. End stage chronic obstructive pulmonary disease. Continue with bronchodilator therapy and supplemental oxygen. 3. Bacteremia. Both bottles of the blood cultures are growing gram-positive cocci. Continue on vancomycin. 4. Acute kidney injury. The patient is receiving diuretic therapy. We will check urine studies. The patient has excellent urine output. 5. Mild pulmonary edema. The patient is currently on diuretic therapy. We will continue to monitor her closely. 6. Cor pulmonale. Aware. 7. Metastatic renal cell carcinoma. Aware. 8. Gastrointestinal prophylaxis. Continue on Protonix. 9. Deep vein thrombosis prophylaxis. Continue on Lovenox. DISPOSITION: The patient is currently a DNR level 2. She is currently stable for transfer to the medical floor. The patient is negative for COVID-19. We will consult Physical Therapy. Palliative Care is following. cc: Misty Daniels MD [facility]TDD
[2019-05-25 18:16] LABS: URINE SOURCE CATH
[2019-05-25 18:28] LABS: BILIRUBIN URINE NEGATIVE (NEGATIVE); BLOOD URINE SMALL (NEGATIVE); COLOR YELLOW; GLUCOSE URINE NEGATIVE (NEGATIVE); KETONE URINE NEGATIVE (NEGATIVE); LEUKOCYTES URINE MODERATE (NEGATIVE); NITRITE URINE NEGATIVE (NEGATIVE); PROTEIN URINE 50 mg/dL (NEGATIVE); SP GRAVITY URINE 1.017; TURBIDITY URINE HAZY (CLEAR); UROBILINOGEN URINE NORMAL (NORMAL)
[2019-05-25 18:39] LABS: UR CREAT RANDOM 113.3 mg/dL (11-20); UR PROT RANDOM 57.3 mg/dL
[2019-05-25 18:57] LABS: UR EPITHELIAL CELLS <10 /HPF (<10); URINE BACTERIA NEGATIVE /HPF; URINE CASTS NONE SEEN; URINE CRYSTALS NONE SEEN; URINE RBC <10 /HPF (<10); URINE SMALL ROUND CELLS NONE SEEN; URINE YEAST NONE SEEN
[2019-05-25] MEDS ORDERED: D5W 250 ML IV SCH (19:15)
[2019-05-25] MEDS ORDERED: CARDIZEM IV ONE (20:16)
[2019-05-25] MEDS ORDERED: CARDIZEM 100 MG/NS 100 MG/100 ML IVPB IV SCH (20:30)
[2019-05-25] MEDS ORDERED: D5W 250 ML IV ONE (20:45)
[2019-05-25] MEDS ORDERED: VANCOMYCIN 1,500 MG in NS 250 ML IV SCH (22:00)
[2019-05-25] MEDS: CARDIZEM PO SCH (23:12)
[2019-05-26] MEDS ORDERED: NEO-SYNEPHRINE 50 MG in NS 250 ML IV SCH (02:18)
[2019-05-26 02:58] LABS: MAGNESIUM 1.4 mg/dL (1.5-2.7); POTASSIUM 3.6 mmol/L (3.5-5.1)
[2019-05-26 05:35] LABS: ALLEN TEST YES; BE 4.6 mmoll (-3.0-3.0); BLOOD TYPE ARTERIAL; HCO3-(ACT) 28.5 mmoll (20.0-26.0); METHB 0.7 % (0.0-1.5); MODALITY CANNULA; O2(CT) 15.3 mL/dL (15.0-23.0); O2HB 96.2 % (95.0-99.0); PCO2(98.6) 46 mmHg (35-45); PO2(98.6) 113 mmHg (60-100); SAMPLE BLOOD; THB 11.2 g/dL (11.5-17.4); pH(98.6) 7.42 (7.35-7.45)
[2019-05-26] MEDS: MAXIPIME 1 GM in NS 50 ML IV SCH ×2 (06:10→17:14)
[2019-05-26] MEDS: PROTONIX IV SCH (06:10)
[2019-05-26 06:34] LABS: BASO# 0.02 X1000 (0.0-0.2); BASO% 0.2 % (0.0-0.8); EOS# 0.36 X1000 (0.0-0.7); HEMATOCRIT 38.2 % (37.0-47.0); HEMOGLOBIN 10.6 g/dL (12.0-16.0); IMM GRAN# 0.02 X1000 (0.0-0.04); IMM GRAN% 0.2 % (0.0-0.5); LYMPH# 1.27 X1000 (1.2-3.4); LYMPH% 14.3 % (20.5-51.1); MCH 25.2 PG (27-31); MCHC 27.7 g/dL (33-37); MCV 90.7 FL (81-99); MONO# 1.04 X1000 (0.11-0.59); MONO% 11.7 % (1.7-9.3); MPV 10.6 FL (7.4-10.4); NEUT# 6.18 X1000 (1.4-6.5); NEUT% 69.6 % (42.2-75.2); PLT 209 X1000 (130-400); RBC 4.21 XMIL (4.2-5.4); RDW 15.8 % (11.5-14.5); WBC 8.89 X1000 (4.8-10.8)
[2019-05-26] MEDS ORDERED: MAGNESIUM SULFATE 2 GM/S.W.I. 2 GM/50 ML IVPB IV ONE (06:45)
--- NOTE | 2019-05-26 07:27 | Diag Imaging Result Doc PS360 ---
EXAM: CHEST-PORTABLE HISTORY: copd TECHNIQUE: Single view COMPARISON: 05/25/2019 FINDINGS: The lungs are well expanded. The heart is not enlarged. The vessels are not distended. There are no infiltrates. No effusion identified. IMPRESSION: Negative exam. Electronically signed by Neri Gage 05/26/2019 7:25 AM
[2019-05-26 07:30] LABS: ALBUMIN 3.1 g/dL (3.5-5.0); CALCIUM 7.3 mg/dL (8.8-10.2); CREATININE 2.1 mg/dL (0.5-0.9); POTASSIUM 3.4 mmol/L (3.5-5.1); TOTAL BILIRUBIN 0.4 mg/dL (0.20-1.00); TOTAL PROTEIN 6.3 g/dL (6.3-8.3)
[2019-05-26] MEDS: LASIX IV SCH (07:59)
[2019-05-26] MEDS: LOVENOX SUBQ SCH (07:59)
--- NOTE | 2019-05-26 13:27 | Diag Imaging Result Doc PS360 ---
EXAM: US RENAL 2 (RETROPER) COMPLETE HISTORY: ryne TECHNIQUE: Renal ultrasound COMPARISON: None. FINDINGS: No right kidney. The left kidney measures 11.8 x 5.4 x 5.0 cm. There is a 1.8 cm cyst in the upper kidney. Normal renal echotexture and cortical thickness. No stone or hydronephrosis. IMPRESSION: Normal left kidney. Electronically signed by Neri Gage 05/26/2019 1:25 PM
[2019-05-26] MEDS: NS 1,000 ML IV SCH (13:29)
--- NOTE | 2019-05-26 14:06 | PROGRESS NOTE ---
DATE: 05/26/2019 SUBJECTIVE: The patient is sitting up in bed resting comfortably. She went into atrial fibrillation with RVR yesterday evening and was transferred to [facility]. She was given a bolus of Cardizem. However, her blood pressure bottomed out and it was discontinued. The patient is now in normal sinus rhythm. OBJECTIVE: Vital Signs: Temperature 98.3 degrees, blood pressure 107/43, heart rate 61, respirations 17, O2 saturations 100% on 3 L nasal cannula. Intake/output: Intake 2.2 L; output 590. General: This is an overweight female sitting up in bed in no acute distress. Heart: S1, S2 normal. Regular rate and rhythm. Lungs: Equal air entry bilaterally. No wheezing. No rales. No rhonchi. Abdomen: Positive bowel sounds. Soft, nontender, nondistended. Extremities: No edema, no cyanosis, no calf tenderness. Neurologic: The patient is alert and oriented x3. LABS: Hemoglobin 10, hematocrit 38, platelets 209. Sodium 136, potassium 3.6, chloride 93, CO2 27. BUN 52, creatinine 2.1, glucose 106, magnesium 1.4. X-RAYS: Chest x-ray shows no acute findings. ASSESSMENT AND PLAN: 1. Acute on chronic hypercapnic respiratory failure status post extubation. The patient's x-ray today is clear. She is back on her baseline amount of oxygen that she uses at home. Continue with BiPAP at night. 2. End-stage chronic obstructive pulmonary disease. Aware. Continue with bronchodilator therapy and supplemental oxygen. 3. Acute kidney injury. This is likely secondary to medications. The patient has been on Lasix, which was discontinued today. The patient also received 2 doses of vancomycin. We will give the patient some IV fluids and monitor her urine output closely. If the renal function continues to worsen, we will consult with the cadd manager. The renal ultrasound shows a normal left kidney. 4. Staph epidermidis bacteremia. Both bottles of the blood cultures are growing Staphylococcus epidermidis. Repeat blood cultures have been drawn for today. Due to the patient's renal dysfunction, we will switch to Zyvox pending the results of the repeat blood cultures. 5. Atrial flutter. The patient is in normal sinus rhythm. 6. Mild pulmonary edema. Resolved. 7. Cor pulmonale. Aware. 8. Metastatic renal cell carcinoma. Aware. 9. Anemia. Stable. 10. Deep vein thrombosis prophylaxis. Continue on heparin. 11. Disposition: Physical therapy has been working with the patient. When the patient is medically stable, she will be discharged home. cc: Misty Daniels MD MTDD
[2019-05-26] MEDS: ZYVOX 600 MG/D5W 600 MG/300 ML IVPB IV SCH (14:49)
[2019-05-26 15:23] LABS: UR CREAT RANDOM 90.8 mg/dL (11-20); UR PROT RANDOM 27.5 mg/dL
--- NOTE | 2019-05-26 17:33 | PROVIDER PROGRESS NOTE ---
Progress Note Dr. Moreira Progress Note/Pulmonary and or critical care Subjective: Patient is lying in bed on NC 3L with no acute distress noted. She appears more alert and energic today. She states she is fine and she has no complaint. Input was appreciated from Dr. Hamilton and other teams on the case. Objective: Vital Signs: T 97.5 (No fever in last 24 hours), WI 58, RR 17, BP 107/58 and SaO2 100% on NC 3L. Physical Examination: General: Chronically ill appearing. Lying in bed with no acute distress noted. HEENT: Atraumatic. Normocephalic. Trachea midline. Mucosa pink and moist. PERRL. Oropharynx clear. Respiratory: Even and unlabored. Symmetrical excursion. Diminished breathing sounds bilaterally with expiratory wheezing bilaterally. Cardiovascular: S1 and S2 appreciated. Gastrointestinal: Soft. Nontender. Normoactive bowel sounds in all 4 quadrants. Extremities: BLE trace edema. No clubbing or cyanosis noted. Neurologic: Awake and alert. Answer simple questions. Follow simple commands. Labs and Radiology: Laboratory Results 05/25/19 05/25/19 05/25/19 18:05 18:05 18:05 WBC RBC Hgb Hct MCV MCH MCHC RDW Std Deviation Plt Count MPV Immature Gran % (Auto) Neut % (Auto) Lymph % (Auto) Trinity % (Auto) Eos % (Auto) Baso % (Auto) Immature Gran # (Auto) Neut # (Auto) Lymph # (Auto) Trinity # (Auto) Eos # (Auto) Baso # (Auto) Specimen Type Sample Site pH pCO2 pO2 HCO3 Base Excess Oxyhemoglobin ABG O2 Sat (Calculated) ABG O2 Saturation ABG Carboxyhemoglobin ABG Methemoglobin Talon Test A-a O2 Difference Total Hemoglobin Lactate Liter Flow Blood Gas Modality FiO2 % Sodium Potassium Chloride Carbon Dioxide Anion Gap BUN Creatinine Estimated GFR/1.73 m2 BUN/Creatinine Ratio Glucose Calculated Osmolality Calcium Magnesium Total Bilirubin AST ALT Alkaline Phosphatase Total Protein Albumin Globulin Albumin/Globulin Ratio TSH Urine Source Urine Color Urine Turbidity Urine pH Ur Specific [place] Urine Protein Ur Glucose (Stick) Ur Ketones (Stick) Urine Blood Urine Nitrite Urine Bilirubin Urobilinogen Dipstick Urine Leukocytes Urine WBC (Auto) Urine RBC (Auto) U Epithel Cells (Auto) Urine Bacteria (Auto) Ur Eosinophil Smear NONE SEEN Urine Crystals Small Round Cells Urine Casts Urine Yeast-like Cells Urine Osmolality 332 Ur Random Creatinine 113.3 H U Random Total Protein 57.3 Ur Random Sodium 63 Ur Random Urea Nitrogn 05/25/19 05/26/19 05/26/19 18:05 02:38 05:25 WBC RBC Hgb Hct MCV MCH MCHC RDW Std Deviation Plt Count MPV Immature Gran % (Auto) Neut % (Auto) Lymph % (Auto) Trinity % (Auto) Eos % (Auto) Baso % (Auto) Immature Gran # (Auto) Neut # (Auto) Lymph # (Auto) Trinity # (Auto) Eos # (Auto) Baso # (Auto) Specimen Type ARTERIAL Sample Site R RADIAL pH 7.42 pCO2 46 H pO2 113 H HCO3 28.5 H Base Excess 4.6 H Oxyhemoglobin 96.2 ABG O2 Sat (Calculated) 15.3 ABG O2 Saturation 98.0 ABG Carboxyhemoglobin 1.10 ABG Methemoglobin 0.7 Talon Test YES A-a O2 Difference 29.0 Total Hemoglobin 11.2 L Lactate 1.70 Liter Flow 2.0 Blood Gas Modality CANNULA FiO2 % 28.0 Sodium Potassium 3.6 Chloride Carbon Dioxide Anion Gap BUN Creatinine Estimated GFR/1.73 m2 BUN/Creatinine Ratio Glucose Calculated Osmolality Calcium Magnesium 1.4 L Total Bilirubin AST ALT Alkaline Phosphatase Total Protein Albumin Globulin Albumin/Globulin Ratio TSH Urine Source CATH Urine Color YELLOW Urine Turbidity HAZY Urine pH 6.0 Ur Specific [place] 1.017 Urine Protein 50 A Ur Glucose (Stick) NEGATIVE Ur Ketones (Stick) NEGATIVE Urine Blood SMALL A Urine Nitrite NEGATIVE Urine Bilirubin NEGATIVE Urobilinogen Dipstick NORMAL Urine Leukocytes MODERATE A Urine WBC (Auto) 10-20 A Urine RBC (Auto) <10 U Epithel Cells (Auto) <10 Urine Bacteria (Auto) NEGATIVE Ur Eosinophil Smear Urine Crystals NONE SEEN Small Round Cells NONE SEEN Urine Casts NONE SEEN Urine Yeast-like Cells NONE SEEN Urine Osmolality Ur Random Creatinine U Random Total Protein Ur Random Sodium Ur Random Urea Nitrogn 05/26/19 05/26/19 05/26/19 05:28 05:28 05:28 WBC 8.89 RBC 4.21 Hgb 10.6 L Hct 38.2 MCV 90.7 MCH 25.2 L MCHC 27.7 L RDW Std Deviation 15.8 H Plt Count 209 MPV 10.6 H Immature Gran % (Auto) 0.2 Neut % (Auto) 69.6 Lymph % (Auto) 14.3 L Trinity % (Auto) 11.7 H Eos % (Auto) 4.0 Baso % (Auto) 0.2 Immature Gran # (Auto) 0.02 Neut # (Auto) 6.18 Lymph # (Auto) 1.27 Trinity # (Auto) 1.04 H Eos # (Auto) 0.36 Baso # (Auto) 0.02 Specimen Type Sample Site pH pCO2 pO2 HCO3 Base Excess Oxyhemoglobin ABG O2 Sat (Calculated) ABG O2 Saturation ABG Carboxyhemoglobin ABG Methemoglobin Talon Test A-a O2 Difference Total Hemoglobin Lactate Liter Flow Blood Gas Modality FiO2 % Sodium 136 Potassium 3.4 L Chloride 93 L Carbon Dioxide 27 Anion Gap 16 BUN 52 H Creatinine 2.1 H Estimated GFR/1.73 m2 23 BUN/Creatinine Ratio 25 Glucose 106 H Calculated Osmolality 286 Calcium 7.3 L D Magnesium 1.2 L Total Bilirubin 0.40 AST 11 ALT 9 L Alkaline Phosphatase 73 Total Protein 6.3 Albumin 3.1 L Globulin 3.2 Albumin/Globulin Ratio 1.0 TSH Urine Source Urine Color Urine Turbidity Urine pH Ur Specific [place] Urine Protein Ur Glucose (Stick) Ur Ketones (Stick) Urine Blood Urine Nitrite Urine Bilirubin Urobilinogen Dipstick Urine Leukocytes Urine WBC (Auto) Urine RBC (Auto) U Epithel Cells (Auto) Urine Bacteria (Auto) Ur Eosinophil Smear Urine Crystals Small Round Cells Urine Casts Urine Yeast-like Cells Urine Osmolality Ur Random Creatinine U Random Total Protein Ur Random Sodium Ur Random Urea Nitrogn 05/26/19 05/26/19 05/26/19 07:53 14:58 14:58 WBC RBC Hgb Hct MCV MCH MCHC RDW Std Deviation Plt Count MPV Immature Gran % (Auto) Neut % (Auto) Lymph % (Auto) Trinity % (Auto) Eos % (Auto) Baso % (Auto) Immature Gran # (Auto) Neut # (Auto) Lymph # (Auto) Trinity # (Auto) Eos # (Auto) Baso # (Auto) Specimen Type Sample Site pH pCO2 pO2 HCO3 Base Excess Oxyhemoglobin ABG O2 Sat (Calculated) ABG O2 Saturation ABG Carboxyhemoglobin ABG Methemoglobin Talon Test A-a O2 Difference Total Hemoglobin Lactate Liter Flow Blood Gas Modality FiO2 % Sodium Potassium Chloride Carbon Dioxide Anion Gap BUN Creatinine Estimated GFR/1.73 m2 BUN/Creatinine Ratio Glucose Calculated Osmolality Calcium Magnesium Total Bilirubin AST ALT Alkaline Phosphatase Total Protein Albumin Globulin Albumin/Globulin Ratio TSH 5.60 H Urine Source Urine Color Urine Turbidity Urine pH Ur Specific [place] Urine Protein Ur Glucose (Stick) Ur Ketones (Stick) Urine Blood Urine Nitrite Urine Bilirubin Urobilinogen Dipstick Urine Leukocytes Urine WBC (Auto) Urine RBC (Auto) U Epithel Cells (Auto) Urine Bacteria (Auto) Ur Eosinophil Smear Urine Crystals Small Round Cells Urine Casts Urine Yeast-like Cells Urine Osmolality 266 L Ur Random Creatinine 90.8 H U Random Total Protein 27.5 Ur Random Sodium 24 Ur Random Urea Nitrogn 307 Assessment: Acute on chronic hypoxemic hypercapnic respiratory failure. Intubated between 05/23/19 to 05/24/19. Bacteremia with Staphylococcus Epidemidis per Blood cultures on 05/23/19. Repeat blood cultures pending. Mild pulmonary edema vs. pneumonia. CXR this morning shows negative exam. End-stage COPD. Patient is on home CPAP therapy. Acute cor pulmonale. Metastatic renal cell carcinoma. Acute renal failure. Worsened. DNR 2. Plan: Continue supplemental oxygen. We titrated oxygen to patients needs per clinical protocols. We will monitor patients response closely and adjust accordingly. We follow up ABG. Continue antibiotics including Cefepime and Vancomycin. We will monitor patients clinical and lab response closely. Continue bronchodilators to promote pulmonary hygiene. Continue diuresis as tolerated. Continue GI and DVT prophylaxis. Recommend BiPAP at bedtime. We start incentive spirometer. We encourage deep breathing and cough routinely.
[2019-05-27] MEDS: ZYVOX 600 MG/D5W 600 MG/300 ML IVPB IV SCH ×2 (02:27→14:02)
[2019-05-27] MEDS: MAXIPIME 1 GM in NS 50 ML IV SCH (04:08)
[2019-05-27] MEDS: PROTONIX IV SCH ×2 (04:08→06:00)
[2019-05-27 06:16] LABS: HEMATOCRIT 34.9 % (37.0-47.0); HEMOGLOBIN 9.8 g/dL (12.0-16.0); MCH 25.4 PG (27-31); MCHC 28.1 g/dL (33-37); MCV 90.4 FL (81-99); MPV 10.7 FL (7.4-10.4); RBC 3.86 XMIL (4.2-5.4); RDW 15.5 % (11.5-14.5); WBC 5.66 X1000 (4.8-10.8)
[2019-05-27] MEDS: NS 1,000 ML IV SCH (07:12)
[2019-05-27 07:16] LABS: ALB/GLOB RATIO 0.7; ALBUMIN 2.6 g/dL (3.5-5.0); CREATININE 1.9 mg/dL (0.5-0.9); POTASSIUM 3.6 mmol/L (3.5-5.1); TOTAL BILIRUBIN 0.28 mg/dL (0.20-1.00); TOTAL PROTEIN 6.2 g/dL (6.3-8.3)
[2019-05-27 07:22] LABS: CALCIUM 6.9 mg/dL (8.8-10.2)
[2019-05-27] MEDS ORDERED: CALCIUM GLUCONATE 1 GM in NS 50 ML IV ONE (07:23)
[2019-05-27] MEDS ORDERED: HEPARIN SUBQ SCH (09:00)
--- NOTE | 2019-05-27 11:29 | EKG Report ---
Test Performed on : 05/25/2019 7:08:40 PM Test Reason : A Fib new onset Blood Pressure : / mmHG Vent. Rate : 155 BPM Atrial Rate : 312 BPM P-R Int : 000 ms QRS Dur : 088 ms QT Int : 308 ms P-R-T Axes : 000 076 073 degrees QTc Int : 494 ms Critical Test Result: High HR Atrial flutter. with variable AV block. Marked ST abnormality, possible inferior subendocardial injury Abnormal ECG When compared with ECG of 23-MAY-2019 07:37, (Unconfirmed) Significant changes have occurred Confirmed by Queenie ROE, Talon Lema ([id number]) on 05/28/2019 9:24:45 AM
--- NOTE | 2019-05-27 13:23 | PROGRESS NOTE ---
DATE: 05/27/2019 SUBJECTIVE: The patient states that she feels much better today. She wants to go home. No acute events noted overnight. OBJECTIVE: Vital Signs: Temperature 98.1 degrees, blood pressure 128/77, heart rate 61, respirations 16, O2 saturations 100% on 3 L nasal cannula. Intake 2.3 L, output 1 L. General: This is a morbidly obese female, lying in bed in no acute distress. Heart: S1, S2 normal. Lungs: Mild expiratory wheezes. No crackles. No rales. Abdomen: Positive bowel sounds. Soft, nontender, nondistended. Extremities: No edema, no cyanosis. Neurologic: The patient is alert and oriented x3. LABORATORY DATA: White blood cell count 5.6, hemoglobin 9.8, hematocrit 34, platelets 197,000. Sodium 136, potassium 3.6, chloride 95, CO2 of 29, BUN 54, creatinine 1.9, glucose 96, calcium 6.9. Magnesium 1.8. AST 8, ALT 7, alkaline phosphatase 63, albumin 2.6. ASSESSMENT AND PLAN: 1. Acute on chronic hypercapnic respiratory failure, status post extubation. Stable. Will order bilevel positive airway pressure at night for the patient. 2. End-stage chronic obstructive pulmonary disease. Aware. Continue on bronchodilator therapy and supplemental oxygen. 3. Staphylococcus epidermidis bacteremia. Two bottles of the blood cultures are growing Staphylococcus epidermidis. Repeat blood cultures are currently pending. The patient is currently on Zyvox, pending the results of the repeat blood cultures. 4. Acute kidney injury, likely secondary to recent diuretic usage. The creatinine is a little bit better today. Continue with gentle intravenous fluid hydration. 5. Paroxysmal atrial fibrillation. The patient is in normal sinus rhythm. 6. Cor pulmonale. Aware. 7. Metastatic renal cell carcinoma. Aware. 8. Anemia. Will continue to monitor the hemoglobin and hematocrit closely. 9. Hypocalcemia. Will replace the patient's calcium. 10. Disposition. The patient is bedbound. Once medically stable, the patient will be discharged home with Hospice Services. cc: Misty Daniels MD
--- NOTE | 2019-05-27 15:20 | PROVIDER PROGRESS NOTE ---
Progress Note Dr. Moreira Progress Note/Pulmonary and or critical care Subjective: Patient is lying in bed on NC 3L with no acute distress noted. She states she is fine and she wants to go home. Input was appreciated from Dr. Hamilton and other teams on the case. Objective: Vital Signs: T 98.1 (No fever in last 24 hours), MN 61, RR 16, BP 128/37 and SaO2 100% on NC 3L. Physical Examination: General: Chronically ill appearing. Lying in bed with no acute distress noted. Pleasant and cooperative. HEENT: Atraumatic. Normocephalic. Trachea midline. Mucosa pink and moist. PERRL. Oropharynx clear. Respiratory: Even and unlabored. Symmetrical excursion. Diminished breathing s ounds bilaterally with some rhonchi in the left side of lung. Cardiovascular: S1 and S2 appreciated. Gastrointestinal: Soft. Nontender. Normoactive bowel sounds in all 4 quadrants. Extremities: BLE trace edema. No clubbing or cyanosis noted. Neurologic: Awake and alert. Answer simple questions. Follow simple commands. Labs and Radiology: Laboratory Results 05/26/19 05/26/19 05/27/19 14:58 14:58 05:16 WBC RBC Hgb Hct MCV MCH MCHC RDW Std Deviation Plt Count MPV Sodium Potassium Chloride Carbon Dioxide Anion Gap BUN Creatinine Estimated GFR/1.73 m2 BUN/Creatinine Ratio Glucose Calculated Osmolality Calcium Magnesium 1.8 Total Bilirubin AST ALT Alkaline Phosphatase Total Protein Albumin Globulin Albumin/Globulin Ratio Urine Osmolality 266 L Ur Random Creatinine 90.8 H U Random Total Protein 27.5 Ur Random Sodium 24 Ur Random Urea Nitrogn 307 05/27/19 05/27/19 05:16 05:16 WBC 5.66 RBC 3.86 L Hgb 9.8 L Hct 34.9 L MCV 90.4 MCH 25.4 L MCHC 28.1 L RDW Std Deviation 15.5 H Plt Count 197 MPV 10.7 H Sodium 136 Potassium 3.6 Chloride 95 L Carbon Dioxide 29 Anion Gap 12 BUN 54 H Creatinine 1.9 H Estimated GFR/1.73 m2 26 BUN/Creatinine Ratio 28 Glucose 96 Calculated Osmolality 287 Calcium 6.9 L* Magnesium Total Bilirubin 0.28 AST 8 L ALT 7 L Alkaline Phosphatase 63 Total Protein 6.2 L Albumin 2.6 L Globulin 3.6 Albumin/Globulin Ratio 0.7 Urine Osmolality Ur Random Creatinine U Random Total Protein Ur Random Sodium Ur Random Urea Nitrogn Assessment: Acute on chronic hypoxemic hypercapnic respiratory failure. Intubated between 05/23/19 to 05/24/19. Improved. Tolerates NC 3L since yesterday. Bacteremia with Staphylococcus Epidemidis per Blood cultures on 05/23/19. Repeat blood cultures on 05/26/19 with results pending. Mild pulmonary edema vs. pneumonia. Radiographically resolved. End-stage COPD. Patient is on home CPAP therapy. Acute cor pulmonale. Metastatic renal cell carcinoma. Acute renal failure. Improving. DNR 2. Plan: Continue supplemental oxygen. We titrated oxygen to patients needs per clinical protocols. We will monitor patients response closely and adjust accordingly. Antibiotics including Cefepime and Vancomycin were discontinued yesterday and Linezolid started. Continue Linezolid at this time. We will monitor patients clinical and lab response closely. Continue bronchodilators as needed. Recommend BiPAP at bedtime as tolerated. We stress the importance of BiPAP. Patient shows understanding and agreement, but she states she has some claustrophobia. She states she will use her CPAP at home as much as she can toleratee after she discharges, but she really doesn't want to use BiPAP in the hospital if possible. We encourage incentive spirometer use routinely with deep breathing and coughing routinely. Await the results of repeat blood cultures.
[2019-05-27] MEDS: ELIQUIS PO SCH (20:45)
[2019-05-28] MEDS: NS 1,000 ML IV SCH ×2 (02:15→18:34)
[2019-05-28] MEDS: ZYVOX 600 MG/D5W 600 MG/300 ML IVPB IV SCH ×2 (02:15→13:19)
[2019-05-28] MEDS: PROTONIX IV SCH ×2 (05:26→06:16)
[2019-05-28 05:43] LABS: ALLEN TEST YES; BE 3.1 mmoll (-3.0-3.0); BLOOD TYPE ARTERIAL; HCO3-(ACT) 27.3 mmoll (20.0-26.0); METHB 0.7 % (0.0-1.5); O2(CT) 15.2 mL/dL (15.0-23.0); O2HB 96.5 % (95.0-99.0); PO2(98.6) 111 mmHg (60-100); SAMPLE BLOOD; SAO2 97.9 % (95.0-100.0); THB 11.1 g/dL (11.5-17.4); pH(98.6) 7.22 (7.35-7.45)
[2019-05-28 05:44] LABS: PCO2(98.6) 80 mmHg (35-45)
[2019-05-28 05:45] LABS: MODALITY CANNULA
[2019-05-28 06:21] LABS: HEMOGLOBIN 10.3 g/dL (12.0-16.0); MCH 25.8 PG (27-31); MCHC 27.8 g/dL (33-37); MCV 92.5 FL (81-99); MPV 10.6 FL (7.4-10.4); RDW 15.6 % (11.5-14.5); WBC 5.38 X1000 (4.8-10.8)
--- NOTE | 2019-05-28 07:13 | Diag Imaging Result Doc PS360 ---
EXAM: CHEST-PORTABLE INDICATION: dyspnea TECHNIQUE: One view COMPARISON: 05/26/2019 FINDINGS: The lungs are grossly clear. There is no discrete pleural fluid collection or pneumothorax. The cardiomediastinal silhouette and central vasculature are grossly unremarkable. IMPRESSION: No evidence of acute pathology by plain radiograph. Electronically signed by Nestor Rogers 05/28/2019 7:11 AM
[2019-05-28 07:25] LABS: ALBUMIN 2.7 g/dL (3.5-5.0); CREATININE 1.6 mg/dL (0.5-0.9); PHOSPHORUS 3.4 mg/dL (2.7-4.5); POTASSIUM 3.9 mmol/L (3.5-5.1)
[2019-05-28 07:27] LABS: CALCIUM 6.9 mg/dL (8.8-10.2)
[2019-05-28] MEDS ORDERED: CALCIUM GLUCONATE 1 GM in NS 50 ML IV ONE ×2 (07:29→20:22)
--- NOTE | 2019-05-28 07:53 | EKG Report ---
Test Performed on : 05/28/2019 06:59:56 AM Test Reason : afib Blood Pressure : / mmHG Vent. Rate : 058 BPM Atrial Rate : 058 BPM P-R Int : 160 ms QRS Dur : 092 ms QT Int : 484 ms P-R-T Axes : 070 057 072 degrees QTc Int : 475 ms Sinus bradycardia. with frequent premature ventricular complexes. Otherwise normal ECG When compared with ECG of 25-MAY-2019 22:09, (Unconfirmed) premature atrial complexes. are no longer present Confirmed by Queenie ROE, Talon Lema ([id number]) on 05/28/2019 9:26:16 AM
--- NOTE | 2019-05-28 08:08 | EKG Report ---
Test Performed on : 05/25/2019 10:09:34 PM Test Reason : ER Blood Pressure : / mmHG Vent. Rate : 072 BPM Atrial Rate : 072 BPM P-R Int : 130 ms QRS Dur : 084 ms QT Int : 430 ms P-R-T Axes : 049 045 066 degrees QTc Int : 470 ms Sinus rhythm. with frequent premature ventricular complexes. and premature atrial complexes. Otherwise normal ECG When compared with ECG of 25-MAY-2019 19:08, (Unconfirmed) Sinus rhythm. has replaced Atrial flutter. Vent. rate has decreased BY [address] no longer depressed in Inferior leads ST no longer depressed in Lateral leads T wave inversion no longer evident in Inferior leads Unconfirmed Result
[2019-05-28] MEDS: ELIQUIS PO SCH ×2 (08:25→21:11)
--- NOTE | 2019-05-28 16:34 | PROGRESS NOTE ---
DATE: 05/28/2019 SUBJECTIVE: The patient is resting comfortably in bed. She is currently on BiPAP. OBJECTIVE: Vital Signs: Temperature 98.2 degrees, blood pressure 119/46, heart rate 62, respirations 22, O2 saturation is 100% on BiPAP. General: This is a morbidly obese female lying in bed, in no acute distress. Heart: S1, S2 normal. Lungs: Equal air entry bilaterally. No wheezing. No rales. Abdomen: Positive bowel sounds. Soft, nontender, nondistended. Extremities: No edema, no cyanosis. Neurologic: The patient is alert and oriented x3. Labs: White blood cell count 5.3, hemoglobin 10, hematocrit 37, platelets 195,000. ABG, pH of 7.22, pCO2 of 80, PO2 of 111, bicarb 27. Sodium 141, potassium 3.9, chloride 102, CO2 of 28, BUN 45, creatinine 1.6, glucose 88, calcium 6.9, albumin 2.7. ASSESSMENT AND PLAN: 1. Acute on chronic hypercapnic respiratory failure status post extubation. Stable. The patient is currently on BiPAP. The patient has been encouraged to wear BiPAP at night as well. 2. End stage chronic obstructive pulmonary disease. Aware. Continue with bronchodilator therapy and supplemental oxygen. 3. Staphylococcus epidermidis bacteremia. So far, the repeat blood cultures remain negative. The patient is currently on Zyvox. 4. Acute kidney injury. Slowly improving with intravenous fluids and withdrawal of diuretic therapy. Continue to monitor closely. 5. Hypocalcemia. We will replace the patient's calcium. 6. Atrial flutter. The patient is in normal sinus rhythm. 7. Cor pulmonale. Aware. 8. Metastatic renal cell carcinoma. Aware. 9. Anemia of chronic disease. Stable. 10. AICHA. Aware. 11. Disposition. The patient is bedbound. Once the patient is medically stable, she will be discharged home with hospice services. cc: Misty Daniels MD [facility]
[2019-05-28 16:37] LABS: ALLEN TEST YES; BE 4.5 mmoll (-3.0-3.0); BLOOD TYPE ARTERIAL; HCO3-(ACT) 28.4 mmoll (20.0-26.0); METHB 1.1 % (0.0-1.5); O2(CT) 13.6 mL/dL (15.0-23.0); O2HB 96.1 % (95.0-99.0); PO2(98.6) 106 mmHg (60-100); SAMPLE BLOOD; SAO2 97.9 % (95.0-100.0); SRATE 10 BPM; THB 9.9 g/dL (11.5-17.4); pH(98.6) 7.33 (7.35-7.45)
[2019-05-28 16:38] LABS: MODALITY BI PAP; PCO2(98.6) 60 mmHg (35-45)
--- NOTE | 2019-05-28 21:09 | PULMONOLOGY PROGRESS NOTE ---
DATE: 05/28/2019 SUBJECTIVE: The patient is awake and alert. She did not wear her BiPAP last evening. An arterial blood gas this morning revealed pH of 7.22, pCO2 of 80, pO2 of 111. She reports she does have a CPAP or BiPAP at the house but is not 100% compliant. OBJECTIVE: Vital Signs: The patient has been afebrile for the last 24 hours. Blood pressure 119/46, heart rate 62, respiratory rate 22, oxygen saturation 100%. HEENT: Pupils are equal and reactive. Oropharynx appears clear. Neck: Supple. Chest: Reveals diminished breath sounds bilaterally. Cardiac: S1-S2. Abdomen: Soft. Extremities: Reveal trace edema. LABORATORIES: Arterial blood gas on BiPAP this afternoon, pH 7.33, pCO2 of 60, PO2 of 106. IMPRESSION: A 78-year-old with 1. End-stage chronic obstructive pulmonary disease with: 2. Acute on chronic hypercapnic respiratory failure after not wearing BiPAP. 3. Acute hypoxemic respiratory failure. 4. Metastatic renal cell carcinoma. 5. Acute cor pulmonale. DISCUSSION: A 78-year-old with problems outlined above. I did educate her on the importance of wearing her CPAP/BiPAP. She is unlikely to remain out of the hospital or be able to be discharged home if she does not wear this device. If she continues to have BiPAP, she might be a candidate for Trilogy. PLAN: 1. Continue BiPAP. 2. Continue to balance intake and output. 3. DNR level 2 as discussed by the palliative care nursing. cc: Thomas Lyles MD
[2019-05-29] MEDS: ZYVOX 600 MG/D5W 600 MG/300 ML IVPB IV SCH (00:38)
[2019-05-29] MEDS: NS 1,000 ML IV SCH (04:48)
[2019-05-29 05:04] LABS: ALLEN TEST YES; BE 3.2 mmoll (-3.0-3.0); BLOOD TYPE ARTERIAL; HCO3-(ACT) 27.4 mmoll (20.0-26.0); METHB 0.2 % (0.0-1.5); O2(CT) 12.8 mL/dL (15.0-23.0); O2HB 97.1 % (95.0-99.0); PO2(98.6) 115 mmHg (60-100); SAMPLE BLOOD; SAO2 98.7 % (95.0-100.0); THB 9.2 g/dL (11.5-17.4); pH(98.6) 7.29 (7.35-7.45)
[2019-05-29 05:11] LABS: MODALITY CANNULA
[2019-05-29 05:12] LABS: PCO2(98.6) 64 mmHg (35-45)
[2019-05-29 05:55] LABS: HEMATOCRIT 34.9 % (37.0-47.0); HEMOGLOBIN 9.6 g/dL (12.0-16.0); MCH 25.7 PG (27-31); MCHC 27.5 g/dL (33-37); MCV 93.6 FL (81-99); MPV 10.7 FL (7.4-10.4); RBC 3.73 XMIL (4.2-5.4); RDW 15.8 % (11.5-14.5); WBC 4.9 X1000 (4.8-10.8)
[2019-05-29] MEDS: PROTONIX IV SCH (06:12)
[2019-05-29 06:22] LABS: CREATININE 1.3 mg/dL (0.5-0.9); PHOSPHORUS 2.3 mg/dL (2.7-4.5)
[2019-05-29 06:23] LABS: CALCIUM 6.7 mg/dL (8.8-10.2)
[2019-05-29] MEDS ORDERED: CALCIUM GLUCONATE 1 GM in NS 50 ML IV ONE (06:33)
[2019-05-29] MEDS: ELIQUIS PO SCH (08:54)
[2019-05-29 11:50] VITALS: BP 142/66
--- NOTE | 2019-05-29 13:00 | DISCHARGE SUMMARY ---
ADMISSION DATE: 05/23/2019 DISCHARGE DATE: 05/29/2019 ADMISSION DIAGNOSES: 1. Acute hypoxemic hypercapnic respiratory failure. 2. Chronic obstructive pulmonary disease with acute exacerbation. 3. Acute hyperkalemia. 4. Altered mental status with metabolic encephalopathy. 5. History of renal cell carcinoma, status post right nephrectomy with metastasis. DISCHARGE DIAGNOSES: 1. Acute on chronic hypercapnic respiratory failure, status post extubation. 2. End-stage chronic obstructive pulmonary disease. 3. Staphylococcus epidermidis bacteremia, on Zyvox. 4. Acute kidney injury. 5. Hypocalcemia. 6. Atrial flutter, but normally in sinus rhythm. 7. Cor pulmonale. 8. Metastatic renal carcinoma. 9. Anemia of chronic disease. 10. Obstructive sleep apnea. 11. Resuscitation status. DO NOT RESUSCITATE level 2. Will go home on hospice care. CONSULTATIONS: 1. Hospice Care. 2. Palliative Care. 3. Dr. Thomas Lyles. 4. Social Service. SURGERIES AND PROCEDURES: The patient was intubated and extubated. HOSPITAL COURSE: Ms. Mayra Oden is a 78-year-old female with a history of metastatic renal cell carcinoma, right nephrectomy with history of chemo, but that was discontinued 9 months prior to admission secondary to no progression of treatment, followed by Dr. Evelia Arora. Apparently, she was found to have O2 saturation of 84% on 2 L nasal cannula. EMS was called. She was brought to the emergency department. Had been disoriented for a couple of days prior to. She became respiratory acidosis, was initially placed on BiPAP. She was hyperkalemic; that was treated. Pulmonary was consulted. She ended up being intubated, placed in the ICU, placed on antibiotic therapy. She was placed on diuretic trial, was eventually weaned and extubated. Palliative Care was consulted due to the poor prognosis given her end-stage COPD and metastatic renal cancer. She was deemed negative for COVID-19. She was on broad-spectrum antibiotics. She was extubated to BiPAP, but she did not like that. She was weaned on her oxygen, felt much better, started to eat. She was extubated on 05/24/2019. She did BiPAP at night. Continued nebulizers. Cultures came back showing that she had bacteremia, Staphylococcus epidermidis resistant to clindamycin, erythromycin, levofloxacin, oxacillin, and penicillin. Did have some acute kidney injury. Lasix was discontinued. Had been on vancomycin; that was stopped. She was switched to Zyvox. She is deemed appropriate for discharge home with hospice. She will do her BiPAP at night, oxygen during the day. DISCHARGE VITAL SIGNS: Temperature 98.2 degrees, heart rate 77, respiratory rate 19, blood pressure 142/66, O2 saturation 99% on 3 L nasal cannula. DISCHARGE LABORATORY DATA: White blood cells 4000, hemoglobin 9, hematocrit 34, platelet count 204,000. ABGs: PH 7.29, pCO2 of 64, PO2 of 115, bicarb 27, base excess 3.2, saturation 97%, lactate 0.5; that was on BiPAP. Sodium 141, potassium 4.0, BUN 33, creatinine is 1.3, glucose 80, calcium 6.7, phosphorus 2.3, albumin 3.0. MICROBIOLOGY: Blood cultures on 05/26/2019 are negative to date, but blood cultures on 05/23/2019 showed Staphylococcus epidermidis that was resistant to clindamycin, erythromycin, levofloxacin, oxacillin, and penicillin. Flu was negative. Strep was negative. Urine cultures were negative. IMAGING: Chest x-ray on 05/23/2019: Mild cardiomegaly. Head CT: Improved bilateral sphenoid sinusitis. Chest x-ray on 05/24/2019: Mild pulmonary edema versus pneumonia. Chest x-ray on 05/25/2019: Endotracheal tube no longer present. Improved bilateral basilar infiltrate. Chest x- ray on 05/26/2019: Negative exam. Chest x-ray on 05/28/2019: Negative exam. Renal ultrasound on 05/26/2019: Normal left kidney. EKG on admission: Accelerated junctional rate 71. EKG on 05/25/2019: Sinus rhythm, rate 72. Another EKG on the evening of 05/25/2019 showed atrial flutter, rate was 155. EKG on 05/28/2019: Sinus bradycardia, rate 58. PHYSICIAN FOLLOWUP: Hospice and Dr. Chidi Roman. DISCHARGE DIET: Heart healthy. DISCHARGE ACTIVITY: As tolerated. Take care to prevent falls. DISCHARGE INSTRUCTIONS: If your condition changes, contact a physician and/or return to the emergency department. Changes may include, but are not limited to, shortness of breath, increased fatigue, excessive bleeding, unexplained weight loss or gain, unmanageable pain, signs or symptoms of infection. DISCHARGE DISPOSITION: Home with hospice care. Dictated by MARCELINA Ramey for Phil Angelo MD cc: MARCELINA Ramey MD
== END 2019-05-29 12:45 | disposition hospice, home (50) | DRG 208 ==
LOC: SUPCPDRO → ED 07:14 → ICU 14:08 → SUATTDRO 14:08 → 3N 05-25 18:49 → 2N 05-25 20:11
PROVIDERS: ATTEND Internal Medicine